=== PATIENT | male | born 1950 | race Caucasian/White ===

== ENCOUNTER 2016-08-02 21:42 | Inpatient (IN) | payer MEDICARE, MEDICAID ==
[~2016-08-02] VITALS: Ht 182.9 cm; Wt 65.9 kg
[2016-08-02] MEDS ORDERED: SODIUM CHLORIDE FLUSH 10ML SYR IVF ONE (22:30)
[2016-08-02] MEDS ORDERED: SODIUM CHLORIDE 0.9% 1,000ML IVBOLUS ONE ×2 (22:30→23:30)
[2016-08-02 23:10] LABS: ASPARTATE AMINO TRANSFERASE 31 U/L (15-37); BLOOD UREA NITROGEN 76 mg/dL (7-18)
[2016-08-02] MEDS ORDERED: VANCOMYCIN PER PHARMACY IV ONE (23:30)
[2016-08-02] MEDS ORDERED: VANCOMYCIN 1,200 MG in SODIUM CHLORIDE 0.9% 250 ML IV ONE (23:30)
[2016-08-02] MEDS ORDERED: PIPERACILLIN/TAZO/PMX 3.375GM 50 ML IVPB ONE (23:30)
[2016-08-02 23:39] LABS: ICTOTEST NEGATIVE
[2016-08-03] MEDS: SODIUM CHLORIDE 0.9% 1,000 ML IV SCH ×2 (00:53→15:23)
[2016-08-03] MEDS ORDERED: ONDANSETRON 2MG/ML, 2ML IVP PRN (01:00)
[2016-08-03] MEDS ORDERED: ACETAMINOPHEN 325 MG TABLET PO PRN (01:00)
[2016-08-03] MEDS ORDERED: ENALAPRILAT 1.25 MG/ML, 2ML IVPush PRN (01:00)
[2016-08-03] MEDS ORDERED: BISACODYL 10 MG SUPP PR PRN (01:00)
[2016-08-03] MEDS ORDERED: DOCUSATE 100 MG CAPSULE PO PRN (01:00)
[2016-08-03] MEDS ORDERED: PIPERACILLIN/TAZO/PMX 3.375GM 50 ML ONE (01:03)
[2016-08-03] MEDS ORDERED: VANCOMYCIN PMX 1GM/200ML 200 ML IV ONE (01:30)
[2016-08-03] MEDS ORDERED: SODIUM CHLORIDE 0.9% 1,000ML IVBOLUS ONE (01:30)
[2016-08-03] MEDS ORDERED: PIPERACILLIN/TAZO/PMX 2.25GM 50 ML IV SCH (01:30)
[2016-08-03] MEDS ORDERED: VANCOMYCIN PER PHARMACY MC PRN (01:30)
[2016-08-03] MEDS ORDERED: OMNIPAQUE 350 MG/ML, 100ML BOTTLE ONE (02:37)
[2016-08-03 03:51] VITALS: BP 121/75
[2016-08-03 03:53] VITALS: BP 121/73
[2016-08-03] MEDS: PANTOPRAZOLE 40 MG IV IVP SCH ×2 (06:28→06:29)
[2016-08-03] MEDS ORDERED: PHARMACOKINETIC CONSULTATION MC ONE (06:30)
[2016-08-03] MEDS ORDERED: PHARMACOKINETIC MONITORING MC PRN (06:30)
[2016-08-03 07:40] VITALS: BP 103/66
[2016-08-03] MEDS ORDERED: ENOXAPARIN 40 MG/0.4 ML SQ SCH (08:30)
[2016-08-03] MEDS: OXYcodone IR 5MG TABLET PO PRN ×3 (09:51→19:59)
[2016-08-03] MEDS: FLUTICASONE/VILANTEROL 100-25MCG/INH INH SCH (09:52)
[2016-08-03] MEDS: AMPICILLIN/SULBACTAM 3 GM in SODIUM CHLORIDE 0.9% 100 ML IV SCH ×3 (09:53→21:51)
[2016-08-03 10:02] LABS: BLOOD UREA NITROGEN 74 mg/dL (7-18)
[2016-08-03] MEDS: MORPHINE SULFATE 4 MG/ML, 1ML IVPush PRN (10:15)
[2016-08-03 10:26] LABS: DIFF TOTAL CELLS COUNTED 100 CELL DIFF
[2016-08-03 10:29] LABS: ANISOCYTOSIS 1+; VERIFY COUNTS? YES
[2016-08-03] MEDS ORDERED: HEPARIN 5,000 UNITS/ML, 1ML SQ SCH (11:30)
[2016-08-03 14:01] VITALS: BP 161/95
[2016-08-03 18:43] VITALS: BP 150/100
[2016-08-03 21:35] LABS: POTASSIUM,URINE RANDOM 32 mmol/L
[2016-08-03 23:59] VITALS: BP 126/69
[2016-08-04 02:33] VITALS: BP 115/76
[2016-08-04] MEDS: AMPICILLIN/SULBACTAM 3 GM in SODIUM CHLORIDE 0.9% 100 ML IV SCH ×4 (03:36→23:27)
[2016-08-04 07:00] LABS: ASPARTATE AMINO TRANSFERASE 32 U/L (15-37); BLOOD UREA NITROGEN 66 mg/dL (7-18)
[2016-08-04] MEDS: PANTOPRAZOLE 40 MG IV IVP SCH (07:30)
[2016-08-04 07:37] LABS: DIFF TOTAL CELLS COUNTED 100 CELL DIFF
[2016-08-04 07:41] LABS: VERIFY COUNTS? YES
[2016-08-04 07:42] LABS: ANISOCYTOSIS 1+
[2016-08-04 09:52] VITALS: BP 137/78
[2016-08-04] MEDS: NS + 20MEQ KCL 1,000 ML IV SCH ×3 (10:03→23:27)
[2016-08-04] MEDS: HEPARIN 5,000 UNITS/ML, 1ML SQ SCH ×3 (10:03→23:45)
[2016-08-04] MEDS: FLUTICASONE/VILANTEROL 100-25MCG/INH INH SCH (10:03)
[2016-08-04] MEDS: VANCOMYCIN 1,300 MG in SODIUM CHLORIDE 0.9% 250 ML IV SCH (12:47)
[2016-08-04 14:00] VITALS: BP 133/66
[2016-08-04 19:35] VITALS: BP 139/72
[2016-08-04] MEDS: OXYcodone IR 5MG TABLET PO PRN (19:58)
[2016-08-05 01:38] VITALS: BP 127/64
[2016-08-05] MEDS: AMPICILLIN/SULBACTAM 3 GM in SODIUM CHLORIDE 0.9% 100 ML IV SCH ×3 (05:35→20:46)
[2016-08-05 06:07] LABS: BLOOD UREA NITROGEN 50 mg/dL (7-18)
[2016-08-05 06:16] LABS: DIFF TOTAL CELLS COUNTED 100 CELL DIFF
[2016-08-05 06:18] LABS: VERIFY COUNTS? YES
[2016-08-05 06:19] LABS: ANISOCYTOSIS 1+
[2016-08-05 08:19] VITALS: BP 143/73
[2016-08-05] MEDS: HEPARIN 5,000 UNITS/ML, 1ML SQ SCH ×2 (09:30→17:10)
[2016-08-05] MEDS: FLUTICASONE/VILANTEROL 100-25MCG/INH INH SCH (09:30)
[2016-08-05] MEDS: OXYcodone IR 5MG TABLET PO PRN ×3 (10:04→21:18)
[2016-08-05] MEDS: NS + 20MEQ KCL 1,000 ML IV SCH ×2 (11:29→21:18)
[2016-08-05] MEDS ORDERED: GADOBUTROL 7.5 MMOL/7.5 ML PFS ONE (13:13)
[2016-08-05 14:20] VITALS: BP 138/76
[2016-08-05 19:57] VITALS: BP 143/82
[2016-08-06] MEDS: VANCOMYCIN 1,300 MG in SODIUM CHLORIDE 0.9% 250 ML IV SCH (00:38)
[2016-08-06] MEDS: HEPARIN 5,000 UNITS/ML, 1ML SQ SCH ×3 (00:38→16:22)
[2016-08-06] MEDS: AMPICILLIN/SULBACTAM 3 GM in SODIUM CHLORIDE 0.9% 100 ML IV SCH ×4 (02:23→19:58)
[2016-08-06 02:31] VITALS: BP 146/74
[2016-08-06] MEDS: OXYcodone IR 5MG TABLET PO PRN ×3 (04:34→21:17)
[2016-08-06 07:11] LABS: BLOOD UREA NITROGEN 33 mg/dL (7-18)
[2016-08-06 07:37] LABS: DIFF TOTAL CELLS COUNTED 100 CELL DIFF
[2016-08-06 07:38] LABS: ANISOCYTOSIS 1+; VERIFY COUNTS? YES
[2016-08-06 07:39] LABS: POLYCHROMASIA 1+
[2016-08-06 07:59] VITALS: BP 134/69
[2016-08-06] MEDS: NS + 20MEQ KCL 1,000 ML IV SCH ×2 (08:46→19:50)
[2016-08-06] MEDS: MORPHINE SULFATE 4 MG/ML, 1ML IVPush PRN ×3 (08:46→16:19)
[2016-08-06] MEDS: FLUTICASONE/VILANTEROL 100-25MCG/INH INH SCH (09:00)
[2016-08-06] MEDS: FLUTICASONE/VILANTEROL 200-25MCG/INH INH SCH (12:21)
[2016-08-06] MEDS ORDERED: SODIUM BICARBONATE 4.2%, 5ML ONE (12:56)
[2016-08-06] MEDS ORDERED: LIDOCAINE 2%, 20ML ONE (12:56)
[2016-08-06 14:48] VITALS: BP 135/70
[2016-08-06 19:56] VITALS: BP 127/64
[2016-08-07] MEDS: HEPARIN 5,000 UNITS/ML, 1ML SQ SCH ×3 (00:51→18:14)
[2016-08-07 01:37] VITALS: BP 134/72
[2016-08-07] MEDS: AMPICILLIN/SULBACTAM 3 GM in SODIUM CHLORIDE 0.9% 100 ML IV SCH ×4 (02:03→22:11)
[2016-08-07] MEDS: OXYcodone IR 5MG TABLET PO PRN ×4 (03:12→22:11)
[2016-08-07] MEDS: NS + 20MEQ KCL 1,000 ML IV SCH ×3 (04:07→23:14)
[2016-08-07] MEDS: VANCOMYCIN 1,300 MG in SODIUM CHLORIDE 0.9% 250 ML IV SCH (04:12)
[2016-08-07 07:00] VITALS: BP 151/81
[2016-08-07 07:01] LABS: BLOOD UREA NITROGEN 20 mg/dL (7-18)
[2016-08-07] MEDS: FLUTICASONE/VILANTEROL 200-25MCG/INH INH SCH (10:36)
[2016-08-07 14:25] VITALS: BP 168/85
[2016-08-07 20:00] LABS: OCCBLD OBC PASS
[2016-08-07 20:30] VITALS: BP 164/89
[2016-08-08] VITALS (8 sets, daily range): BP systolic 152–175; BP diastolic 81–99
[2016-08-08] MEDS: HEPARIN 5,000 UNITS/ML, 1ML SQ SCH ×3 (02:12→17:26)
[2016-08-08] MEDS: ENALAPRILAT 1.25 MG/ML, 2ML IVPush PRN ×2 (02:39→09:56)
[2016-08-08] MEDS: AMPICILLIN/SULBACTAM 3 GM in SODIUM CHLORIDE 0.9% 100 ML IV SCH ×4 (04:06→22:07)
[2016-08-08] MEDS: MORPHINE SULFATE 4 MG/ML, 1ML IVPush PRN ×2 (04:06→18:02)
[2016-08-08] MEDS ORDERED: AMLODIPINE 5 MG TABLET PO SCH (04:30)
[2016-08-08] MEDS: VANCOMYCIN 1,300 MG in SODIUM CHLORIDE 0.9% 250 ML IV SCH (05:16)
[2016-08-08 06:00] LABS: BLOOD UREA NITROGEN 15 mg/dL (7-18)
[2016-08-08] MEDS: FLUTICASONE/VILANTEROL 200-25MCG/INH INH SCH (09:56)
[2016-08-08] MEDS: OXYcodone IR 5MG TABLET PO PRN ×3 (09:56→22:07)
[2016-08-08] MEDS ORDERED: FUROSEMIDE 40 MG/4 ML IV ONE (11:00)
[2016-08-08] MEDS ORDERED: LACTULOSE 20 GM/30 ML UDC PO ONE (11:00)
[2016-08-08] MEDS ORDERED: LABETALOL 5MG/ML, 20ML IVPush PRN (14:00)
[2016-08-08] MEDS: ERGOCALCIFEROL 50,000 UNIT CAPSULE PO SCH (16:06)
[2016-08-08] MEDS: POLYETHYLENE GLYCOL 17 GM PACKET PO PRN (17:26)
[2016-08-08] MEDS: FERROUS SULFATE 325 MG TABLET PO SCH (17:26)
[2016-08-09] MEDS: HEPARIN 5,000 UNITS/ML, 1ML SQ SCH ×3 (02:04→18:33)
[2016-08-09] MEDS: MORPHINE SULFATE 4 MG/ML, 1ML IVPush PRN ×2 (02:04→20:05)
[2016-08-09 02:53] VITALS: BP 153/86
[2016-08-09] MEDS: AMPICILLIN/SULBACTAM 3 GM in SODIUM CHLORIDE 0.9% 100 ML IV SCH ×4 (04:16→23:12)
[2016-08-09 08:04] VITALS: BP 154/90
[2016-08-09] MEDS: FERROUS SULFATE 325 MG TABLET PO SCH ×2 (09:13→16:59)
[2016-08-09] MEDS: FLUTICASONE/VILANTEROL 200-25MCG/INH INH SCH (09:13)
[2016-08-09] MEDS: OXYcodone IR 5MG TABLET PO PRN (09:14)
[2016-08-09] MEDS: POLYETHYLENE GLYCOL 17 GM PACKET PO PRN (09:26)
[2016-08-09 13:22] VITALS: BP 166/85
[2016-08-09] MEDS ORDERED: D5%-0.45% NACL 1,000 ML IV SCH (14:30)
[2016-08-09] MEDS: D5%-0.45% NACL 1,000 ML IV SCH (17:00)
[2016-08-09 19:56] VITALS: BP 159/84
[2016-08-10] MEDS: MORPHINE SULFATE 4 MG/ML, 1ML IVPush PRN ×3 (01:27→23:21)
[2016-08-10] MEDS: HEPARIN 5,000 UNITS/ML, 1ML SQ SCH ×3 (01:30→16:59)
[2016-08-10 02:00] VITALS: BP 166/89
[2016-08-10] MEDS: AMPICILLIN/SULBACTAM 3 GM in SODIUM CHLORIDE 0.9% 100 ML IV SCH ×4 (05:11→23:22)
[2016-08-10 05:35] LABS: BLOOD UREA NITROGEN 9 mg/dL (7-18)
[2016-08-10] MEDS ORDERED: OMNIPAQUE 350 MG/ML, 100ML BOTTLE ONE (06:16)
[2016-08-10 07:44] VITALS: BP 155/85
[2016-08-10] MEDS: FERROUS SULFATE 325 MG TABLET PO SCH ×3 (08:00→17:00)
[2016-08-10] MEDS ORDERED: SODIUM BICARBONATE 4.2%, 5ML ONE (09:47)
[2016-08-10] MEDS ORDERED: LIDOCAINE 1%, 20ML ONE (09:47)
[2016-08-10] MEDS: FLUTICASONE/VILANTEROL 200-25MCG/INH INH SCH (10:48)
[2016-08-10 13:23] VITALS: BP 174/94
[2016-08-10] MEDS: D5%-0.45% NACL 1,000 ML IV SCH (13:57)
[2016-08-10] MEDS ORDERED: D5%-0.45% NACL 1,000 ML IV SCH (14:30)
[2016-08-10 19:54] VITALS: BP 178/92
[2016-08-11 02:00] VITALS: BP 151/82
[2016-08-11] MEDS: HEPARIN 5,000 UNITS/ML, 1ML SQ SCH ×4 (03:35→22:50)
[2016-08-11] MEDS: MORPHINE SULFATE 4 MG/ML, 1ML IVPush PRN ×2 (04:24→08:34)
[2016-08-11] MEDS: AMPICILLIN/SULBACTAM 3 GM in SODIUM CHLORIDE 0.9% 100 ML IV SCH ×4 (05:32→22:50)
[2016-08-11] MEDS: FERROUS SULFATE 325 MG TABLET PO SCH ×2 (08:18→16:09)
[2016-08-11 08:25] VITALS: BP 163/85
[2016-08-11] MEDS: FLUTICASONE/VILANTEROL 200-25MCG/INH INH SCH (08:34)
[2016-08-11] MEDS: D5%-0.45% NACL 1,000 ML IV SCH (10:02)
[2016-08-11 14:19] VITALS: BP 154/86
[2016-08-11] MEDS: METHYLNALTREXONE 12 MG/0.6 ML SQ SCH (14:46)
[2016-08-11] MEDS: OXYcodone IR 5MG TABLET PO PRN ×2 (14:46→22:51)
[2016-08-11] MEDS: METOCLOPRAMIDE 10MG TABLET PO SCH ×2 (16:09→22:51)
[2016-08-11 19:58] VITALS: BP 147/84
[2016-08-12 01:58] VITALS: BP 154/92
[2016-08-12] MEDS: AMPICILLIN/SULBACTAM 3 GM in SODIUM CHLORIDE 0.9% 100 ML IV SCH ×4 (04:59→23:25)
[2016-08-12] MEDS: OXYcodone IR 5MG TABLET PO PRN ×4 (05:00→23:25)
[2016-08-12 07:02] LABS: ASPARTATE AMINO TRANSFERASE 35 U/L (15-37); BLOOD UREA NITROGEN 5 mg/dL (7-18)
[2016-08-12] MEDS: METOCLOPRAMIDE 10MG TABLET PO SCH ×3 (08:07→23:24)
[2016-08-12] MEDS: FLUTICASONE/VILANTEROL 200-25MCG/INH INH SCH (08:07)
[2016-08-12] MEDS: FERROUS SULFATE 325 MG TABLET PO SCH ×2 (08:07→17:41)
[2016-08-12 08:11] VITALS: BP 160/82
[2016-08-12] MEDS: D5%-0.45% NACL 1,000 ML IV SCH (10:19)
[2016-08-12] MEDS: HEPARIN 5,000 UNITS/ML, 1ML SQ SCH ×2 (10:19→17:41)
[2016-08-12 14:53] VITALS: BP 163/83
[2016-08-12] MEDS ORDERED: OMNIPAQUE 350 MG/ML, 100ML BOTTLE ONE (16:15)
[2016-08-12 16:39] VITALS: BP 155/82
[2016-08-12 18:30] VITALS: BP 150/75
[2016-08-12] MEDS: SODIUM CHLORIDE 0.9% 1,000 ML IV SCH (23:25)
[2016-08-13 02:00] VITALS: BP 151/73
[2016-08-13] MEDS: HEPARIN 5,000 UNITS/ML, 1ML SQ SCH ×3 (03:06→18:00)
[2016-08-13] MEDS: AMPICILLIN/SULBACTAM 3 GM in SODIUM CHLORIDE 0.9% 100 ML IV SCH ×3 (04:45→22:23)
[2016-08-13 06:12] LABS: ASPARTATE AMINO TRANSFERASE 30 U/L (15-37); BLOOD UREA NITROGEN 6 mg/dL (7-18)
[2016-08-13 07:57] VITALS: BP 155/79
[2016-08-13] MEDS: FERROUS SULFATE 325 MG TABLET PO SCH ×2 (08:00→17:00)
[2016-08-13] MEDS: MORPHINE SULFATE 4 MG/ML, 1ML IVPush PRN ×3 (08:35→21:06)
[2016-08-13] MEDS: FLUTICASONE/VILANTEROL 200-25MCG/INH INH SCH (09:00)
[2016-08-13] MEDS: MULTIVITAMINS/MINERALS TABLET PO SCH (09:00)
[2016-08-13] MEDS: METOCLOPRAMIDE 10MG TABLET PO SCH ×3 (09:00→21:00)
[2016-08-13] MEDS: CALCIUM CARBONATE 500 MG TABLET PO SCH ×2 (09:00→21:00)
[2016-08-13] MEDS ORDERED: DEXAMETHASONE 4 MG/ML, 1ML ONE (10:36)
[2016-08-13] MEDS ORDERED: METOPROLOL 1 MG/ML, 5ML ONE (10:36)
[2016-08-13] MEDS ORDERED: ONDANSETRON 2MG/ML, 2ML ONE (10:36)
[2016-08-13] MEDS ORDERED: PROPOFOL 10 MG/ML, 20ML ONE (10:36)
[2016-08-13] MEDS ORDERED: GABAPENTIN 100 MG CAPSULE PO PRN (12:30)
[2016-08-13] MEDS: METHYLNALTREXONE 12 MG/0.6 ML SQ SCH (12:30)
[2016-08-13] MEDS: SODIUM CHLORIDE 0.9% 1,000 ML IV SCH ×2 (13:20→13:34)
[2016-08-13 14:10] VITALS: BP 162/97
[2016-08-13] MEDS ORDERED: BACITRACIN OINT 500U/GM, 15 GM ONE (14:42)
[2016-08-13] MEDS ORDERED: NEOMY/POLYMYXIN B GU IRR. 1 ML IRRIG ONE (14:42)
[2016-08-13] MEDS ORDERED: BACITRACIN 50,000 UNIT ONE (14:42)
[2016-08-13] MEDS ORDERED: FENTANYL PF 100 MCG/2ML ONE ×2 (17:04→19:10)
[2016-08-13] MEDS ORDERED: HYDROmorphone 1 MG/ML, 1ML IV PRN (18:30)
[2016-08-13] MEDS ORDERED: ACETAMINOPHEN 325 MG TABLET PO PRN (18:30)
[2016-08-13] MEDS ORDERED: MEPERIDINE/PF 25MG/0.5ML IVPush PRN (18:30)
[2016-08-13] MEDS ORDERED: FENTANYL PF 100 MCG/2ML IV PRN (18:30)
[2016-08-13] MEDS ORDERED: METOPROLOL 1 MG/ML, 5ML IV PRN (18:30)
[2016-08-13] MEDS ORDERED: PROMETHAZINE 25 MG/ML, 1ML IV PRN (18:30)
[2016-08-13] MEDS ORDERED: hydrALAzine 20 MG/ML, 1ML IV PRN (18:30)
[2016-08-13] MEDS ORDERED: OXYcodone 5 MG/5 ML ORAL.SOL UDC PO PRN (18:30)
[2016-08-13] MEDS ORDERED: ALBUTEROL/IPRATROPIUM 2.5MG/0.5MG, 3 ML NPPB PRN (18:30)
[2016-08-13] MEDS ORDERED: OXYcodone 5 MG/5 ML ORAL.SOL UDC ONE (19:10)
[2016-08-13 19:46] VITALS: BP 124/92
[2016-08-13] MEDS: OXYcodone IR 5MG TABLET PO PRN (22:23)
[2016-08-14 01:00] VITALS: BP 129/77
[2016-08-14] MEDS: HEPARIN 5,000 UNITS/ML, 1ML SQ SCH ×3 (03:00→18:53)
[2016-08-14] MEDS: OXYcodone IR 5MG TABLET PO PRN ×3 (03:00→15:31)
[2016-08-14] MEDS: AMPICILLIN/SULBACTAM 3 GM in SODIUM CHLORIDE 0.9% 100 ML IV SCH ×4 (04:09→22:19)
[2016-08-14 05:18] LABS: BLOOD UREA NITROGEN 9 mg/dL (7-18)
[2016-08-14] MEDS: MORPHINE SULFATE 4 MG/ML, 1ML IVPush PRN ×4 (06:11→13:46)
[2016-08-14] MEDS ORDERED: MAGNESIUM SULFATE PMX 2GM/50ML 50 ML IV ONE (07:00)
[2016-08-14] MEDS: FLUTICASONE/VILANTEROL 200-25MCG/INH INH SCH (08:20)
[2016-08-14] MEDS: CALCIUM CARBONATE 500 MG TABLET PO SCH ×2 (08:21→21:58)
[2016-08-14] MEDS: FERROUS SULFATE 325 MG TABLET PO SCH ×2 (08:21→16:45)
[2016-08-14] MEDS: MULTIVITAMINS/MINERALS TABLET PO SCH (08:23)
[2016-08-14 08:37] VITALS: BP 138/74
[2016-08-14 14:31] VITALS: BP 144/75
[2016-08-14] MEDS: SODIUM CHLORIDE 0.9% 1,000 ML IV SCH (16:44)
[2016-08-14 19:29] VITALS: BP 148/83
[2016-08-15 01:22] VITALS: BP 155/84
[2016-08-15] MEDS: HEPARIN 5,000 UNITS/ML, 1ML SQ SCH ×3 (02:03→18:49)
[2016-08-15] MEDS: OXYcodone IR 5MG TABLET PO PRN ×4 (02:31→22:28)
[2016-08-15] MEDS: AMPICILLIN/SULBACTAM 3 GM in SODIUM CHLORIDE 0.9% 100 ML IV SCH ×4 (04:18→22:28)
[2016-08-15] MEDS: SODIUM CHLORIDE 0.9% 1,000 ML IV SCH (05:20)
[2016-08-15 07:12] VITALS: BP 160/82
[2016-08-15] MEDS: FLUTICASONE/VILANTEROL 200-25MCG/INH INH SCH (10:38)
[2016-08-15] MEDS: MULTIVITAMINS/MINERALS TABLET PO SCH (10:38)
[2016-08-15] MEDS: CALCIUM CARBONATE 500 MG TABLET PO SCH ×2 (10:38→22:28)
[2016-08-15] MEDS: FERROUS SULFATE 325 MG TABLET PO SCH ×2 (10:38→16:23)
[2016-08-15 13:56] VITALS: BP 172/86
[2016-08-15 14:07] LABS: OCCBLD OBC PASS
[2016-08-15] MEDS: ERGOCALCIFEROL 50,000 UNIT CAPSULE PO SCH (16:23)
[2016-08-15 20:17] VITALS: BP 141/90
[2016-08-16 02:51] VITALS: BP 164/81
[2016-08-16] MEDS: HEPARIN 5,000 UNITS/ML, 1ML SQ SCH ×3 (02:59→18:48)
[2016-08-16] MEDS: AMPICILLIN/SULBACTAM 3 GM in SODIUM CHLORIDE 0.9% 100 ML IV SCH ×4 (04:14→22:07)
[2016-08-16] MEDS: OXYcodone IR 5MG TABLET PO PRN ×3 (04:19→18:47)
[2016-08-16 07:44] VITALS: BP 167/78
[2016-08-16] MEDS: MULTIVITAMINS/MINERALS TABLET PO SCH (08:31)
[2016-08-16] MEDS: CALCIUM CARBONATE 500 MG TABLET PO SCH ×2 (08:33→20:24)
[2016-08-16] MEDS: FLUTICASONE/VILANTEROL 200-25MCG/INH INH SCH (08:34)
[2016-08-16] MEDS: FERROUS SULFATE 325 MG TABLET PO SCH ×2 (08:34→16:07)
[2016-08-16] MEDS: MORPHINE SULFATE 4 MG/ML, 1ML IVPush PRN (11:29)
[2016-08-16 13:58] VITALS: BP 149/83
[2016-08-16 18:40] VITALS: BP 163/82
[2016-08-17] MEDS: OXYcodone IR 5MG TABLET PO PRN ×2 (02:06→07:57)
[2016-08-17 02:29] VITALS: BP 167/84
[2016-08-17] MEDS: AMPICILLIN/SULBACTAM 3 GM in SODIUM CHLORIDE 0.9% 100 ML IV SCH ×4 (03:51→21:54)
[2016-08-17] MEDS: HEPARIN 5,000 UNITS/ML, 1ML SQ SCH ×3 (03:52→19:37)
[2016-08-17 06:33] LABS: BLOOD UREA NITROGEN 12 mg/dL (7-18)
[2016-08-17 07:31] VITALS: BP 178/85
[2016-08-17] MEDS: CALCIUM CARBONATE 500 MG TABLET PO SCH ×2 (07:56→19:37)
[2016-08-17] MEDS: MULTIVITAMINS/MINERALS TABLET PO SCH (07:56)
[2016-08-17] MEDS: FERROUS SULFATE 325 MG TABLET PO SCH ×2 (07:56→16:25)
[2016-08-17] MEDS: FLUTICASONE/VILANTEROL 200-25MCG/INH INH SCH (07:57)
[2016-08-17 13:27] VITALS: BP 153/78
[2016-08-17] MEDS ORDERED: MAGNESIUM SULFATE PMX 2GM/50ML 50 ML IV ONE (16:00)
[2016-08-17 19:46] VITALS: BP 158/84
[2016-08-18 02:48] VITALS: BP 178/88
[2016-08-18] MEDS: HEPARIN 5,000 UNITS/ML, 1ML SQ SCH ×3 (03:45→21:38)
[2016-08-18] MEDS: AMPICILLIN/SULBACTAM 3 GM in SODIUM CHLORIDE 0.9% 100 ML IV SCH ×2 (03:45→09:57)
[2016-08-18] MEDS: OXYcodone IR 5MG TABLET PO PRN (04:02)
[2016-08-18 05:55] LABS: ASPARTATE AMINO TRANSFERASE 35 U/L (15-37); BLOOD UREA NITROGEN 12 mg/dL (7-18)
[2016-08-18 07:54] VITALS: BP 169/85
[2016-08-18] MEDS: FLUTICASONE/VILANTEROL 200-25MCG/INH INH SCH (09:57)
[2016-08-18] MEDS: MULTIVITAMINS/MINERALS TABLET PO SCH (09:57)
[2016-08-18] MEDS: FERROUS SULFATE 325 MG TABLET PO SCH ×2 (09:57→17:00)
[2016-08-18] MEDS: CALCIUM CARBONATE 500 MG TABLET PO SCH ×2 (09:57→21:36)
[2016-08-18 14:30] VITALS: BP 159/84
[2016-08-18 19:34] VITALS: BP 139/88
[2016-08-19 01:10] VITALS: BP 171/92
[2016-08-19] MEDS: OXYcodone IR 5MG TABLET PO PRN ×2 (01:25→09:58)
[2016-08-19] MEDS: ENALAPRILAT 1.25 MG/ML, 2ML IVPush PRN (01:47)
[2016-08-19 01:50] VITALS: BP 176/89
[2016-08-19] MEDS: HEPARIN 5,000 UNITS/ML, 1ML SQ SCH ×3 (05:36→19:41)
[2016-08-19 07:56] VITALS: BP 167/84
[2016-08-19] MEDS: FLUTICASONE/VILANTEROL 200-25MCG/INH INH SCH (09:54)
[2016-08-19] MEDS: MULTIVITAMINS/MINERALS TABLET PO SCH (09:54)
[2016-08-19] MEDS: FERROUS SULFATE 325 MG TABLET PO SCH ×2 (09:54→17:00)
[2016-08-19] MEDS: CALCIUM CARBONATE 500 MG TABLET PO SCH ×2 (09:58→19:41)
[2016-08-19 13:03] VITALS: BP 150/77
[2016-08-19] MEDS: MORPHINE SULFATE 4 MG/ML, 1ML IVPush PRN (13:27)
[2016-08-19 18:35] VITALS: BP 146/83
[2016-08-20 03:43] VITALS: BP 166/90
[2016-08-20] MEDS: OXYcodone IR 5MG TABLET PO PRN ×3 (03:51→18:05)
[2016-08-20] MEDS: HEPARIN 5,000 UNITS/ML, 1ML SQ SCH ×3 (03:52→23:03)
[2016-08-20 08:18] VITALS: BP 156/83
[2016-08-20] MEDS: FERROUS SULFATE 325 MG TABLET PO SCH ×2 (08:48→18:05)
[2016-08-20] MEDS: FLUTICASONE/VILANTEROL 200-25MCG/INH INH SCH (08:48)
[2016-08-20] MEDS: MULTIVITAMINS/MINERALS TABLET PO SCH (08:48)
[2016-08-20] MEDS: CALCIUM CARBONATE 500 MG TABLET PO SCH ×2 (08:48→21:43)
[2016-08-20 15:54] VITALS: BP 121/77
[2016-08-20 20:40] VITALS: BP 123/80
[2016-08-21 00:25] VITALS: BP 146/84
[2016-08-21] MEDS: OXYcodone IR 5MG TABLET PO PRN ×2 (03:45→20:09)
[2016-08-21] MEDS: HEPARIN 5,000 UNITS/ML, 1ML SQ SCH ×3 (06:30→23:06)
[2016-08-21 08:35] VITALS: BP 160/84
[2016-08-21] MEDS: CALCIUM CARBONATE 500 MG TABLET PO SCH ×2 (09:19→20:09)
[2016-08-21] MEDS: FLUTICASONE/VILANTEROL 200-25MCG/INH INH SCH (09:19)
[2016-08-21] MEDS: FERROUS SULFATE 325 MG TABLET PO SCH ×2 (09:19→16:18)
[2016-08-21] MEDS: MULTIVITAMINS/MINERALS TABLET PO SCH (09:19)
[2016-08-21] MEDS: MORPHINE SULFATE 4 MG/ML, 1ML IVPush PRN (13:35)
[2016-08-21 15:19] VITALS: BP 150/83
[2016-08-21 20:00] VITALS: BP 145/82
[2016-08-22 02:37] VITALS: BP 158/86
[2016-08-22] MEDS: HEPARIN 5,000 UNITS/ML, 1ML SQ SCH ×3 (06:40→23:11)
[2016-08-22 07:21] VITALS: BP 163/88
[2016-08-22] MEDS: FERROUS SULFATE 325 MG TABLET PO SCH ×2 (07:38→20:21)
[2016-08-22] MEDS: FLUTICASONE/VILANTEROL 200-25MCG/INH INH SCH (07:38)
[2016-08-22] MEDS: MULTIVITAMINS/MINERALS TABLET PO SCH (07:38)
[2016-08-22] MEDS: CALCIUM CARBONATE 500 MG TABLET PO SCH ×2 (07:38→20:21)
[2016-08-22] MEDS: ENALAPRILAT 1.25 MG/ML, 2ML IVPush PRN (07:40)
[2016-08-22] MEDS: OXYcodone IR 5MG TABLET PO PRN ×3 (07:44→19:21)
[2016-08-22 08:38] VITALS: BP 156/89
[2016-08-22] MEDS: ERGOCALCIFEROL 50,000 UNIT CAPSULE PO SCH (15:15)
[2016-08-22 15:59] VITALS: BP 123/69
[2016-08-22 20:30] VITALS: BP 144/82
[2016-08-23 01:55] VITALS: BP 154/89
[2016-08-23] MEDS: HEPARIN 5,000 UNITS/ML, 1ML SQ SCH ×3 (06:33→23:57)
[2016-08-23 07:23] VITALS: BP 154/84
[2016-08-23] MEDS: CALCIUM CARBONATE 500 MG TABLET PO SCH ×2 (09:47→21:35)
[2016-08-23] MEDS: FERROUS SULFATE 325 MG TABLET PO SCH ×2 (09:47→17:33)
[2016-08-23] MEDS: MORPHINE SULFATE 4 MG/ML, 1ML IVPush PRN (09:47)
[2016-08-23] MEDS: MULTIVITAMINS/MINERALS TABLET PO SCH (09:47)
[2016-08-23] MEDS: FLUTICASONE/VILANTEROL 200-25MCG/INH INH SCH (12:09)
[2016-08-23 14:30] VITALS: BP 158/90
[2016-08-23] MEDS: POLYETHYLENE GLYCOL 17 GM PACKET PO PRN (17:33)
[2016-08-23 18:37] VITALS: BP 126/82
[2016-08-23] MEDS: OXYcodone IR 5MG TABLET PO PRN (21:49)
[2016-08-24 01:30] VITALS: BP 134/83
[2016-08-24 07:17] VITALS: BP 146/91
[2016-08-24] MEDS: MULTIVITAMINS/MINERALS TABLET PO SCH (08:20)
[2016-08-24] MEDS: FERROUS SULFATE 325 MG TABLET PO SCH ×2 (08:20→17:30)
[2016-08-24] MEDS: OXYcodone IR 5MG TABLET PO PRN ×3 (08:20→20:26)
[2016-08-24] MEDS: HEPARIN 5,000 UNITS/ML, 1ML SQ SCH ×3 (08:21→23:50)
[2016-08-24] MEDS: FLUTICASONE/VILANTEROL 200-25MCG/INH INH SCH (08:21)
[2016-08-24] MEDS: CALCIUM CARBONATE 500 MG TABLET PO SCH ×2 (08:25→20:26)
[2016-08-24 15:15] VITALS: BP 126/81
[2016-08-24 19:02] VITALS: BP 147/83
[2016-08-25] MEDS: OXYcodone IR 5MG TABLET PO PRN ×2 (00:37→11:28)
[2016-08-25 00:56] VITALS: BP 134/83
[2016-08-25 07:47] VITALS: BP 131/79
[2016-08-25] MEDS: FLUTICASONE/VILANTEROL 200-25MCG/INH INH SCH (11:27)
[2016-08-25] MEDS: HEPARIN 5,000 UNITS/ML, 1ML SQ SCH ×2 (11:28→20:31)
[2016-08-25] MEDS: CALCIUM CARBONATE 500 MG TABLET PO SCH ×2 (11:28→20:31)
[2016-08-25] MEDS: MULTIVITAMINS/MINERALS TABLET PO SCH (11:28)
[2016-08-25] MEDS: FERROUS SULFATE 325 MG TABLET PO SCH ×2 (11:28→17:41)
[2016-08-25 14:05] VITALS: BP 110/75
[2016-08-25 19:34] VITALS: BP 131/79
[2016-08-26 04:21] VITALS: BP 146/89
[2016-08-26] MEDS: HEPARIN 5,000 UNITS/ML, 1ML SQ SCH ×3 (04:26→20:28)
[2016-08-26] MEDS: OXYcodone IR 5MG TABLET PO PRN ×2 (04:26→20:27)
[2016-08-26 08:13] VITALS: BP 140/89
[2016-08-26] MEDS: MORPHINE SULFATE 4 MG/ML, 1ML IVPush PRN (09:11)
[2016-08-26] MEDS: CALCIUM CARBONATE 500 MG TABLET PO SCH ×2 (09:17→20:27)
[2016-08-26] MEDS: FERROUS SULFATE 325 MG TABLET PO SCH ×2 (09:17→16:31)
[2016-08-26] MEDS: FLUTICASONE/VILANTEROL 200-25MCG/INH INH SCH (09:17)
[2016-08-26] MEDS: MULTIVITAMINS/MINERALS TABLET PO SCH (09:17)
[2016-08-26 14:17] VITALS: BP 118/75
[2016-08-26 19:13] VITALS: BP 115/71
[2016-08-27 01:39] VITALS: BP 132/82
[2016-08-27] MEDS: HEPARIN 5,000 UNITS/ML, 1ML SQ SCH ×3 (04:00→21:02)
[2016-08-27 07:49] VITALS: BP 130/81
[2016-08-27] MEDS: CALCIUM CARBONATE 500 MG TABLET PO SCH ×2 (09:07→21:00)
[2016-08-27] MEDS: MULTIVITAMINS/MINERALS TABLET PO SCH (09:07)
[2016-08-27] MEDS: FLUTICASONE/VILANTEROL 200-25MCG/INH INH SCH (09:07)
[2016-08-27] MEDS: FERROUS SULFATE 325 MG TABLET PO SCH ×2 (09:07→16:46)
[2016-08-27 13:51] VITALS: BP 123/86
[2016-08-27 19:12] VITALS: BP 131/86
[2016-08-28 03:02] VITALS: BP 148/94
[2016-08-28] MEDS: HEPARIN 5,000 UNITS/ML, 1ML SQ SCH ×3 (05:02→20:56)
[2016-08-28 08:00] VITALS: BP 121/75
[2016-08-28] MEDS: FERROUS SULFATE 325 MG TABLET PO SCH ×2 (08:25→17:50)
[2016-08-28] MEDS: CALCIUM CARBONATE 500 MG TABLET PO SCH ×2 (08:26→20:55)
[2016-08-28] MEDS: MULTIVITAMINS/MINERALS TABLET PO SCH (08:27)
[2016-08-28] MEDS: FLUTICASONE/VILANTEROL 200-25MCG/INH INH SCH (08:32)
[2016-08-28] MEDS: MORPHINE SULFATE 4 MG/ML, 1ML IVPush PRN (11:51)
[2016-08-28 14:00] VITALS: BP 131/82
[2016-08-28 19:32] VITALS: BP 121/76
[2016-08-29 02:15] VITALS: BP 143/87
[2016-08-29] MEDS: HEPARIN 5,000 UNITS/ML, 1ML SQ SCH ×3 (04:30→20:16)
[2016-08-29 07:47] VITALS: BP 133/84
[2016-08-29] MEDS: FERROUS SULFATE 325 MG TABLET PO SCH ×2 (08:44→16:15)
[2016-08-29] MEDS: MULTIVITAMINS/MINERALS TABLET PO SCH (08:44)
[2016-08-29] MEDS: FLUTICASONE/VILANTEROL 200-25MCG/INH INH SCH (08:44)
[2016-08-29] MEDS: CALCIUM CARBONATE 500 MG TABLET PO SCH ×2 (08:44→20:16)
[2016-08-29 13:22] VITALS: BP 126/82
[2016-08-29] MEDS: OXYcodone IR 5MG TABLET PO PRN (16:15)
[2016-08-29] MEDS: ERGOCALCIFEROL 50,000 UNIT CAPSULE PO SCH (16:16)
[2016-08-29 19:31] VITALS: BP 126/81
[2016-08-30 01:37] VITALS: BP 132/84
[2016-08-30] MEDS: HEPARIN 5,000 UNITS/ML, 1ML SQ SCH ×2 (04:00→11:57)
[2016-08-30] MEDS: MULTIVITAMINS/MINERALS TABLET PO SCH (07:42)
[2016-08-30] MEDS: CALCIUM CARBONATE 500 MG TABLET PO SCH (07:42)
[2016-08-30] MEDS: FERROUS SULFATE 325 MG TABLET PO SCH ×2 (07:43→16:50)
[2016-08-30] MEDS: FLUTICASONE/VILANTEROL 200-25MCG/INH INH SCH (07:44)
[2016-08-30] MEDS: OXYcodone IR 5MG TABLET PO PRN ×2 (07:54→11:57)
[2016-08-30 08:12] VITALS: BP 126/84
[2016-08-30] MEDS ORDERED: ERGO500017 PO (14:14)
[2016-08-30] MEDS ORDERED: OXYC5TAB3 PO (14:14)
[2016-08-30] MEDS ORDERED: POLY17PO5 PO (14:14)
[2016-08-30] MEDS ORDERED: FLUT1BLS INH (14:14)
[2016-08-30] MEDS ORDERED: FERR325T20 PO (14:14)
[2016-08-30] MEDS ORDERED: MULT-484 PO (14:14)
[2016-08-30] MEDS ORDERED: CALC-666 PO (14:14)
[2016-08-30] MEDS ORDERED: GABA100C8 PO (14:14)
[2016-08-30 14:43] VITALS: BP 116/77
== END 2016-08-30 18:35 | DRG 853 ==
LOC: ED 23:59 → EDIP 08-03 00:53 → 3NE 08-03 04:37
PROVIDERS: ADMIT Internal Medicine; ATTEND Internal Medicine
PROC: 0T9B70Z Drainage of Bladder with Drainage Device, Via Natural or Artificial Opening (ICD-10-PCS; 2016-08-02)
PROC: 0J9M3ZX Drainage of Left Upper Leg Subcutaneous Tissue and Fascia, Percutaneous Approach, Diagnostic (ICD-10-PCS; 2016-08-10)
PROC: 0J9M0ZZ Drainage of Left Upper Leg Subcutaneous Tissue and Fascia, Open Approach (ICD-10-PCS; 2016-08-13)
PROC: 0J9P0ZZ Drainage of Left Lower Leg Subcutaneous Tissue and Fascia, Open Approach (ICD-10-PCS; principal; 2016-08-13 17:00)
DX: A41.50 Gram-negative sepsis, unspecified (principal); N17.0 Acute kidney failure with tubular necrosis; E43 Unspecified severe protein-calorie malnutrition; N39.0 Urinary tract infection, site not specified; L03.116 Cellulitis of left lower limb; L02.416 Cutaneous abscess of left lower limb; Z68.1 Body mass index [BMI] 19.9 or less, adult; R65.20 Severe sepsis without septic shock; J44.9 Chronic obstructive pulmonary disease, unspecified; D64.9 Anemia, unspecified; R62.7 Adult failure to thrive; E87.8 Other disorders of electrolyte and fluid balance, not elsewhere classified; M54.30 Sciatica, unspecified side; I11.9 Hypertensive heart disease without heart failure; H54.8 Legal blindness, as defined in USA; F17.210 Nicotine dependence, cigarettes, uncomplicated; K59.00 Constipation, unspecified; M60.9 Myositis, unspecified; Z75.1 Person awaiting admission to adequate facility elsewhere; Z59.0 Homelessness; Z90.89 Acquired absence of other organs
CPT/HCPCS: 36415; 71010; 74000; 74177; 74270; 76770; 77002; 80048; 80053; 80061; 80202; 81001; 82272; 82306; 82436; 82570; 82607; 82728; 83036; 83540; 83550; 83605; 83735; 84100; 84133; 84145; 84300; 84439; 84443; 84466; 85014; 85018; 85025; 86480; 87015; 87040; 87070; 87075; 87086; 87102; 87116; 87205; 87206; 87324; 93005; 93306; 93970; 96360; A9585; J0295; J1100; J1644; J1650; J1940; J2405; J2543; J2704; J3010; J3370; J3480; J3490; Q9967; C9113; J3475; J7030; J7050

== ENCOUNTER 2016-11-20 18:25 | Inpatient (IN) | payer MEDICARE, MEDICAID ==
[~2016-11-20] VITALS: Ht 182.9 cm; Wt 74.5 kg
[~2016-11-20 18:25] MED LIST: CALC-666 PO; ERGO500017 PO; FERR325T20 PO; FLUT1BLS INH; GABA-826 PO; MULT-484 PO; OXYC5TAB3 PO; POLY17PO5 PO
[2016-11-20] MEDS ORDERED: ACETAMINOPHEN 500 MG TABLET PO ONE (18:30)
[2016-11-20] MEDS ORDERED: SODIUM CHLORIDE FLUSH 10ML SYR IVF ONE (18:30)
[2016-11-20] MEDS ORDERED: SODIUM CHLORIDE 0.9% 1,000ML IVBOLUS ONE ×2 (18:30→20:00)
[2016-11-20 19:28] LABS: ASPARTATE AMINO TRANSFERASE 13 U/L (15-37); BLOOD UREA NITROGEN 58 mg/dL (7-18)
[2016-11-20 19:33] LABS: IS PT STATUS REG ER OR PRE ER? YES
[2016-11-20] MEDS ORDERED: ACETAMINOPHEN 325 MG TABLET ONE (19:51)
[2016-11-20] MEDS ORDERED: CEFTRIAXONE PMX 2GM/50ML 50 ML ONE (19:51)
[2016-11-20] MEDS ORDERED: CEFTRIAXONE PMX 2GM/50ML 50 ML IV ONE (20:00)
[2016-11-20] MEDS ORDERED: VANCOMYCIN PER PHARMACY MC ONE (20:00)
[2016-11-20] MEDS ORDERED: VANCOMYCIN 1,300 MG in SODIUM CHLORIDE 0.9% 250 ML IV ONE (20:00)
[2016-11-20] MEDS ORDERED: PHARMACOKINETIC CONSULTATION MC ONE (20:00)
[2016-11-20] MEDS ORDERED: OXYcodone/APAP 5/325MG TABLET ONE (22:49)
[2016-11-20] MEDS ORDERED: OXYcodone/APAP 5/325MG TABLET PO ONE (23:00)
[2016-11-20 23:51] LABS: POTASSIUM,URINE RANDOM 53 mmol/L
[2016-11-21] MEDS ORDERED: PHARMACY MAY ADJ FOR RENAL FX MC PRN (01:30)
[2016-11-21] MEDS ORDERED: ONDANSETRON 2MG/ML, 2ML IVPush PRN (01:30)
[2016-11-21] MEDS ORDERED: POLYETHYLENE GLYCOL 17 GM PACKET PO PRN (01:30)
[2016-11-21] MEDS ORDERED: PROMETHAZINE 25 MG/ML, 1ML IM PRN (01:30)
[2016-11-21] MEDS ORDERED: ACETAMINOPHEN 325 MG TABLET PO PRN ×2 (01:30→21:30)
[2016-11-21] MEDS ORDERED: VANCOMYCIN PER PHARMACY MC PRN (01:30)
[2016-11-21] MEDS ORDERED: PIPERACILLIN/TAZO/PMX 3.375GM 50 ML IV ONE (01:30)
[2016-11-21] MEDS ORDERED: DOCUSATE 100 MG CAPSULE PO PRN (01:30)
[2016-11-21] MEDS ORDERED: BISACODYL 10 MG SUPP PR PRN (01:30)
[2016-11-21] MEDS: SODIUM CHLORIDE 0.9% 1,000 ML IV SCH ×2 (01:39→09:51)
[2016-11-21] MEDS: HYDROcodone/APAP 5/325 TABLET PO PRN ×2 (01:40→13:50)
[2016-11-21 01:59] VITALS: BP 108/64
[2016-11-21 02:05] VITALS: BP 96/46
[2016-11-21] MEDS: HEPARIN 5,000 UNITS/ML, 1ML SQ SCH ×3 (03:03→17:30)
[2016-11-21] MEDS ORDERED: PHARMACOKINETIC MONITORING MC PRN (04:00)
[2016-11-21] MEDS ORDERED: PHARMACOKINETIC CONSULTATION MC ONE (04:00)
[2016-11-21 04:48] LABS: BLOOD UREA NITROGEN 60 mg/dL (7-18)
[2016-11-21 04:52] LABS: ASPARTATE AMINO TRANSFERASE 16 U/L (15-37)
[2016-11-21 08:00] VITALS: BP 112/67
[2016-11-21] MEDS ORDERED: DAKIN'S SOLUTION 1/4 STRENGTH 1,000 ML IRRIG SOLN EXT SCH (09:00)
[2016-11-21] MEDS: morphine SULFATE 10 MG/ML, 1ML IVPush PRN (09:35)
[2016-11-21] MEDS: SENNA/DOCUSATE TABLET PO SCH (09:43)
[2016-11-21] MEDS: PIPERACILLIN/TAZO 2.25 GM in SODIUM CHLORIDE 0.9% 50 ML IV SCH ×2 (09:44→18:34)
[2016-11-21 14:00] VITALS: BP 121/74
[2016-11-21] MEDS ORDERED: VANCOMYCIN 1,200 MG in SODIUM CHLORIDE 0.9% 250 ML IV ONE (16:00)
[2016-11-21] MEDS ORDERED: PERMETHRIN CRM 5%, 60GM TP ONE (16:30)
[2016-11-21 20:00] VITALS: BP 135/55
[2016-11-21] MEDS ORDERED: PROPOFOL 10 MG/ML, 20ML ONE (20:24)
[2016-11-21] MEDS: FENTANYL PF 100 MCG/2ML IV PRN ×4 (21:05→22:00)
[2016-11-21] MEDS ORDERED: ACETAMINOPHEN 650 MG/20.3 ML UDC ONE (21:13)
[2016-11-21] MEDS ORDERED: OXYcodone 5 MG/5 ML ORAL.SOL UDC ONE (21:14)
[2016-11-21] MEDS ORDERED: FENTANYL PF 100 MCG/2ML ONE ×2 (21:14→21:44)
[2016-11-21] MEDS: HYDROmorphone 1 MG/ML, 1ML IV PRN ×5 (21:15→22:35)
[2016-11-21] MEDS ORDERED: HYDROmorphone 1 MG/ML, 1ML ONE ×2 (21:22→21:44)
[2016-11-21] MEDS ORDERED: OXYcodone 5 MG/5 ML ORAL.SOL UDC PO PRN (21:30)
[2016-11-21] MEDS ORDERED: HYDROmorphone 2 MG/ML, 1ML ONE (22:15)
[2016-11-21 22:57] VITALS: BP 128/67
[2016-11-22] MEDS: SODIUM CHLORIDE 0.9% 1,000 ML IV SCH ×2 (01:01→09:53)
[2016-11-22] MEDS: PIPERACILLIN/TAZO 2.25 GM in SODIUM CHLORIDE 0.9% 50 ML IV SCH ×3 (01:02→17:50)
[2016-11-22] MEDS: HEPARIN 5,000 UNITS/ML, 1ML SQ SCH ×3 (01:02→21:03)
[2016-11-22 02:46] VITALS: BP 110/62
[2016-11-22 06:40] VITALS: BP 96/53
[2016-11-22] MEDS: SENNA/DOCUSATE TABLET PO SCH (09:00)
[2016-11-22] MEDS: HYDROcodone/APAP 5/325 TABLET PO PRN ×3 (09:53→21:02)
[2016-11-22 12:40] VITALS: BP 113/64
[2016-11-22] MEDS: D5%-0.9% NACL 1,000 ML IV SCH ×2 (13:00→21:35)
[2016-11-22] MEDS: morphine SULFATE 10 MG/ML, 1ML IVPush PRN ×3 (14:22→21:57)
[2016-11-22 18:51] VITALS: BP 127/62
[2016-11-23 01:37] VITALS: BP 115/64
[2016-11-23] MEDS: PIPERACILLIN/TAZO 2.25 GM in SODIUM CHLORIDE 0.9% 50 ML IV SCH ×3 (01:50→18:44)
[2016-11-23] MEDS: morphine SULFATE 10 MG/ML, 1ML IVPush PRN ×5 (01:50→21:00)
[2016-11-23] MEDS: HEPARIN 5,000 UNITS/ML, 1ML SQ SCH ×3 (04:48→20:18)
[2016-11-23 06:04] LABS: BLOOD UREA NITROGEN 24 mg/dL (7-18)
[2016-11-23 06:30] VITALS: BP 124/70
[2016-11-23] MEDS: SENNA/DOCUSATE TABLET PO SCH (08:28)
[2016-11-23] MEDS: D5%-0.9% NACL 1,000 ML IV SCH ×2 (08:29→21:00)
[2016-11-23] MEDS ORDERED: VANCOMYCIN 1,300 MG in SODIUM CHLORIDE 0.9% 250 ML IV SCH (11:00)
[2016-11-23 12:54] VITALS: BP 140/75
[2016-11-23 19:53] VITALS: BP 143/58
[2016-11-24 02:14] VITALS: BP 118/63
[2016-11-24] MEDS: PIPERACILLIN/TAZO 2.25 GM in SODIUM CHLORIDE 0.9% 50 ML IV SCH ×2 (02:58→09:30)
[2016-11-24] MEDS: morphine SULFATE 10 MG/ML, 1ML IVPush PRN ×4 (04:59→16:13)
[2016-11-24] MEDS: HEPARIN 5,000 UNITS/ML, 1ML SQ SCH ×3 (04:59→21:17)
[2016-11-24] MEDS ORDERED: MORPHINE SULFATE 4 MG/ML, 1ML ONE (05:15)
[2016-11-24 05:56] LABS: BLOOD UREA NITROGEN 15 mg/dL (7-18)
[2016-11-24] MEDS: D5%-0.9% NACL 1,000 ML IV SCH ×2 (08:00→18:14)
[2016-11-24 08:36] VITALS: BP 157/82
[2016-11-24] MEDS: SENNA/DOCUSATE TABLET PO SCH (09:00)
[2016-11-24] MEDS: AMPICILLIN/SULBACTAM 3 GM in SODIUM CHLORIDE 0.9% 100 ML IV SCH ×2 (11:51→18:14)
[2016-11-24 13:31] VITALS: BP 155/84
[2016-11-24] MEDS: GABAPENTIN 100 MG CAPSULE PO SCH ×2 (18:14→21:17)
[2016-11-24 19:10] VITALS: BP 147/78
[2016-11-24] MEDS ORDERED: BISACODYL 10 MG SUPP PR PRN (19:30)
[2016-11-24] MEDS ORDERED: PROMETHAZINE 25 MG/ML, 1ML IM PRN (19:30)
[2016-11-24] MEDS ORDERED: ONDANSETRON 2MG/ML, 2ML IVPush PRN (19:30)
[2016-11-24] MEDS ORDERED: DOCUSATE 100 MG CAPSULE PO PRN (19:30)
[2016-11-24] MEDS ORDERED: ACETAMINOPHEN 325 MG TABLET PO PRN (19:30)
[2016-11-25] MEDS: AMPICILLIN/SULBACTAM 3 GM in SODIUM CHLORIDE 0.9% 100 ML IV SCH ×4 (00:10→17:25)
[2016-11-25 01:32] VITALS: BP 139/72
[2016-11-25] MEDS: HEPARIN 5,000 UNITS/ML, 1ML SQ SCH ×3 (05:02→21:22)
[2016-11-25] MEDS: morphine SULFATE 10 MG/ML, 1ML IVPush PRN ×5 (05:02→15:43)
[2016-11-25] MEDS: D5%-0.9% NACL 1,000 ML IV SCH ×2 (05:34→15:05)
[2016-11-25 07:14] VITALS: BP 141/84
[2016-11-25] MEDS: SENNA/DOCUSATE TABLET PO SCH (09:25)
[2016-11-25] MEDS: GABAPENTIN 100 MG CAPSULE PO SCH ×3 (09:25→21:22)
[2016-11-25 16:15] VITALS: BP 142/83
[2016-11-25 19:09] VITALS: BP 138/79
[2016-11-26] MEDS: AMPICILLIN/SULBACTAM 3 GM in SODIUM CHLORIDE 0.9% 100 ML IV SCH ×4 (00:14→18:54)
[2016-11-26 01:14] VITALS: BP 126/72
[2016-11-26] MEDS: D5%-0.9% NACL 1,000 ML IV SCH ×2 (04:37→11:56)
[2016-11-26] MEDS: HEPARIN 5,000 UNITS/ML, 1ML SQ SCH ×3 (04:37→21:10)
[2016-11-26] MEDS: morphine SULFATE 10 MG/ML, 1ML IVPush PRN ×5 (06:10→21:10)
[2016-11-26 07:10] LABS: ASPARTATE AMINO TRANSFERASE 37 U/L (15-37); BLOOD UREA NITROGEN 10 mg/dL (7-18)
[2016-11-26 07:11] VITALS: BP 149/91
[2016-11-26] MEDS: GABAPENTIN 100 MG CAPSULE PO SCH ×3 (09:58→21:10)
[2016-11-26] MEDS: SENNA/DOCUSATE TABLET PO SCH (09:58)
[2016-11-26 14:06] VITALS: BP 127/71
[2016-11-26 17:36] VITALS: BP 135/87
[2016-11-26 19:06] VITALS: BP 131/82
[2016-11-27] MEDS: AMPICILLIN/SULBACTAM 3 GM in SODIUM CHLORIDE 0.9% 100 ML IV SCH ×4 (00:27→18:24)
[2016-11-27] MEDS: D5%-0.9% NACL 1,000 ML IV SCH ×2 (00:29→16:14)
[2016-11-27 02:36] VITALS: BP 128/76
[2016-11-27] MEDS: morphine SULFATE 10 MG/ML, 1ML IVPush PRN ×4 (04:30→17:38)
[2016-11-27] MEDS: HEPARIN 5,000 UNITS/ML, 1ML SQ SCH ×3 (06:06→21:00)
[2016-11-27 08:18] VITALS: BP 137/77
[2016-11-27] MEDS: GABAPENTIN 100 MG CAPSULE PO SCH ×3 (09:59→21:08)
[2016-11-27] MEDS: SENNA/DOCUSATE TABLET PO SCH (09:59)
[2016-11-27 13:48] VITALS: BP 126/79
[2016-11-27 18:38] VITALS: BP 136/82
[2016-11-28] MEDS: AMPICILLIN/SULBACTAM 3 GM in SODIUM CHLORIDE 0.9% 100 ML IV SCH ×4 (00:13→17:09)
[2016-11-28 00:47] VITALS: BP 141/82
[2016-11-28] MEDS: HEPARIN 5,000 UNITS/ML, 1ML SQ SCH ×3 (05:00→21:19)
[2016-11-28] MEDS: D5%-0.9% NACL 1,000 ML IV SCH ×2 (05:57→21:19)
[2016-11-28] MEDS: morphine SULFATE 10 MG/ML, 1ML IVPush PRN ×2 (05:57→21:29)
[2016-11-28] MEDS: GABAPENTIN 100 MG CAPSULE PO SCH ×4 (06:00→21:19)
[2016-11-28 06:48] VITALS: BP 145/77
[2016-11-28] MEDS: SENNA/DOCUSATE TABLET PO SCH (08:28)
[2016-11-28] MEDS ORDERED: LIDOCAINE 2%, 20ML ONE (09:14)
[2016-11-28] MEDS ORDERED: NITROGLYCERIN/D5W PMX 0 ML ONE (09:40)
[2016-11-28] MEDS ORDERED: FENTANYL PF 100 MCG/2ML ONE (09:41)
[2016-11-28] MEDS ORDERED: HEPARIN 1,000 UNITS/ML, 10ML ONE (09:41)
[2016-11-28] MEDS ORDERED: FLUMAZENIL 0.1 MG/1 ML, 5ML ONE (09:41)
[2016-11-28] MEDS ORDERED: MIDAZOLAM 1 MG/ML, 5ML ONE (09:41)
[2016-11-28] MEDS ORDERED: NALOXONE 1 MG/ML, 2ML ONE (09:42)
[2016-11-28] MEDS ORDERED: VISIPAQUE 270 MG/ML, 150ML BOTTLE ONE (10:00)
[2016-11-28] MEDS: HYDROcodone/APAP 5/325 TABLET PO PRN ×2 (11:43→17:30)
[2016-11-28 13:42] VITALS: BP 127/77
[2016-11-28 13:49] VITALS: BP 124/75
[2016-11-28 13:51] VITALS: BP 107/64
[2016-11-28] MEDS ORDERED: PNEUMOCOCCAL 23 VACCINE IM-VACC ONE (14:30)
[2016-11-28 18:24] VITALS: BP 132/75
[2016-11-29] MEDS: AMPICILLIN/SULBACTAM 3 GM in SODIUM CHLORIDE 0.9% 100 ML IV SCH ×4 (00:51→17:12)
[2016-11-29] MEDS: HYDROcodone/APAP 5/325 TABLET PO PRN ×5 (00:52→19:47)
[2016-11-29 00:56] VITALS: BP 132/73
[2016-11-29] MEDS: GABAPENTIN 100 MG CAPSULE PO SCH ×4 (05:37→22:44)
[2016-11-29] MEDS: HEPARIN 5,000 UNITS/ML, 1ML SQ SCH ×3 (05:37→22:44)
[2016-11-29] MEDS: morphine SULFATE 10 MG/ML, 1ML IVPush PRN ×3 (05:37→22:45)
[2016-11-29 06:48] VITALS: BP 139/82
[2016-11-29] MEDS: SENNA/DOCUSATE TABLET PO SCH (09:00)
[2016-11-29] MEDS: D5%-0.9% NACL 1,000 ML IV SCH ×2 (10:02→22:44)
[2016-11-29 12:20] VITALS: BP 125/72
[2016-11-29 18:21] VITALS: BP 100/53
[2016-11-30] MEDS: AMPICILLIN/SULBACTAM 3 GM in SODIUM CHLORIDE 0.9% 100 ML IV SCH ×4 (00:26→20:43)
[2016-11-30 02:17] VITALS: BP 107/63
[2016-11-30] MEDS: GABAPENTIN 100 MG CAPSULE PO SCH ×4 (05:04→20:43)
[2016-11-30] MEDS: HEPARIN 5,000 UNITS/ML, 1ML SQ SCH ×3 (05:32→20:43)
[2016-11-30] MEDS: morphine SULFATE 10 MG/ML, 1ML IVPush PRN (05:33)
[2016-11-30 06:52] VITALS: BP 132/76
[2016-11-30] MEDS: HYDROcodone/APAP 5/325 TABLET PO PRN (10:18)
[2016-11-30] MEDS: SENNA/DOCUSATE TABLET PO SCH (10:18)
[2016-11-30] MEDS: D5%-0.9% NACL 1,000 ML IV SCH (10:19)
[2016-11-30 12:57] VITALS: BP 119/71
[2016-11-30] MEDS ORDERED: iron (17:02)
[2016-11-30 18:46] VITALS: BP 120/72
[2016-12-01] MEDS: D5%-0.9% NACL 1,000 ML IV SCH (00:18)
[2016-12-01] MEDS: HYDROcodone/APAP 5/325 TABLET PO PRN ×3 (00:29→19:59)
[2016-12-01 01:01] VITALS: BP 122/76
[2016-12-01] MEDS: AMPICILLIN/SULBACTAM 3 GM in SODIUM CHLORIDE 0.9% 100 ML IV SCH ×4 (02:17→19:58)
[2016-12-01] MEDS: GABAPENTIN 100 MG CAPSULE PO SCH ×4 (05:28→19:58)
[2016-12-01] MEDS: HEPARIN 5,000 UNITS/ML, 1ML SQ SCH ×3 (05:28→19:59)
[2016-12-01 06:38] LABS: ASPARTATE AMINO TRANSFERASE 14 U/L (15-37); BLOOD UREA NITROGEN 12 mg/dL (7-18)
[2016-12-01 06:50] VITALS: BP 138/84
[2016-12-01] MEDS: SENNA/DOCUSATE TABLET PO SCH (07:40)
[2016-12-01 09:44] LABS: TOTAL IRON BINDING CAPACITY 167 mcg/dL (250-450)
[2016-12-01] MEDS: morphine SULFATE 10 MG/ML, 1ML IVPush PRN (10:32)
[2016-12-01] MEDS: ASCORBIC ACID 500 MG TABLET PO SCH ×2 (10:32→19:58)
[2016-12-01] MEDS: FERROUS SULFATE 325 MG TABLET PO SCH ×2 (10:32→19:58)
[2016-12-01 13:50] VITALS: BP 133/74
[2016-12-01 19:13] VITALS: BP 142/79
[2016-12-02] MEDS: AMPICILLIN/SULBACTAM 3 GM in SODIUM CHLORIDE 0.9% 100 ML IV SCH ×4 (01:43→20:24)
[2016-12-02 01:56] VITALS: BP 132/70
[2016-12-02] MEDS: HYDROcodone/APAP 5/325 TABLET PO PRN ×3 (02:55→20:24)
[2016-12-02] MEDS: HEPARIN 5,000 UNITS/ML, 1ML SQ SCH ×3 (05:00→20:24)
[2016-12-02 05:03] LABS: OCCBLD OBC PASS
[2016-12-02] MEDS: GABAPENTIN 100 MG CAPSULE PO SCH ×4 (05:03→20:24)
[2016-12-02 06:56] VITALS: BP 133/84
[2016-12-02 07:30] LABS: BLOOD UREA NITROGEN 14 mg/dL (7-18)
[2016-12-02] MEDS: SENNA/DOCUSATE TABLET PO SCH (07:34)
[2016-12-02] MEDS: FERROUS SULFATE 325 MG TABLET PO SCH ×2 (07:37→20:24)
[2016-12-02] MEDS: ASCORBIC ACID 500 MG TABLET PO SCH ×2 (07:37→20:24)
[2016-12-02] MEDS: morphine SULFATE 10 MG/ML, 1ML IVPush PRN (11:21)
[2016-12-02 12:30] VITALS: BP 141/77
[2016-12-02 18:40] VITALS: BP 150/80
[2016-12-03 00:17] VITALS: BP 150/83
[2016-12-03] MEDS: AMPICILLIN/SULBACTAM 3 GM in SODIUM CHLORIDE 0.9% 100 ML IV SCH ×4 (02:00→19:55)
[2016-12-03] MEDS: HEPARIN 5,000 UNITS/ML, 1ML SQ SCH ×3 (05:09→23:21)
[2016-12-03] MEDS: GABAPENTIN 100 MG CAPSULE PO SCH ×4 (05:09→23:21)
[2016-12-03 07:30] VITALS: BP 153/79
[2016-12-03] MEDS: FERROUS SULFATE 325 MG TABLET PO SCH ×2 (07:34→23:20)
[2016-12-03] MEDS: HYDROcodone/APAP 5/325 TABLET PO PRN ×2 (07:34→23:21)
[2016-12-03] MEDS: ASCORBIC ACID 500 MG TABLET PO SCH ×2 (07:35→23:21)
[2016-12-03] MEDS: SENNA/DOCUSATE TABLET PO SCH (07:35)
[2016-12-03 07:56] LABS: BLOOD UREA NITROGEN 15 mg/dL (7-18)
[2016-12-03 12:50] VITALS: BP 138/80
[2016-12-03] MEDS: morphine SULFATE 10 MG/ML, 1ML IVPush PRN (13:35)
[2016-12-03 20:17] VITALS: BP 117/72
[2016-12-04 00:41] VITALS: BP 133/81
[2016-12-04] MEDS: AMPICILLIN/SULBACTAM 3 GM in SODIUM CHLORIDE 0.9% 100 ML IV SCH ×4 (01:35→21:00)
[2016-12-04] MEDS: GABAPENTIN 100 MG CAPSULE PO SCH ×4 (04:57→20:59)
[2016-12-04 06:58] VITALS: BP 129/81
[2016-12-04] MEDS: SENNA/DOCUSATE TABLET PO SCH (07:33)
[2016-12-04] MEDS: ASCORBIC ACID 500 MG TABLET PO SCH ×2 (07:33→20:59)
[2016-12-04] MEDS: HEPARIN 5,000 UNITS/ML, 1ML SQ SCH ×3 (07:33→23:00)
[2016-12-04] MEDS: FERROUS SULFATE 325 MG TABLET PO SCH ×2 (07:33→20:59)
[2016-12-04] MEDS: HYDROcodone/APAP 5/325 TABLET PO PRN (07:41)
[2016-12-04 14:07] VITALS: BP 123/72
[2016-12-04] MEDS: morphine SULFATE 10 MG/ML, 1ML IVPush PRN (14:27)
[2016-12-04 20:17] VITALS: BP 115/69
[2016-12-05] MEDS: AMPICILLIN/SULBACTAM 3 GM in SODIUM CHLORIDE 0.9% 100 ML IV SCH ×3 (02:35→13:22)
[2016-12-05] MEDS: HYDROcodone/APAP 5/325 TABLET PO PRN (02:36)
[2016-12-05 03:20] VITALS: BP 128/73
[2016-12-05] MEDS: GABAPENTIN 100 MG CAPSULE PO SCH ×2 (05:32→11:21)
[2016-12-05] MEDS: HEPARIN 5,000 UNITS/ML, 1ML SQ SCH (07:45)
[2016-12-05] MEDS: FERROUS SULFATE 325 MG TABLET PO SCH (07:45)
[2016-12-05] MEDS: ASCORBIC ACID 500 MG TABLET PO SCH (07:45)
[2016-12-05] MEDS: SENNA/DOCUSATE TABLET PO SCH (07:45)
[2016-12-05 07:48] VITALS: BP 131/83
[2016-12-05] MEDS: morphine SULFATE 10 MG/ML, 1ML IVPush PRN (11:10)
[2016-12-05] MEDS ORDERED: BISA10SU2 PR (13:16)
[2016-12-05] MEDS ORDERED: DOCU100C8 PO (13:18)
[2016-12-05] MEDS ORDERED: DOCU100T3 PO (13:18)
[2016-12-05] MEDS ORDERED: HYDR-3138 PO (13:21)
[2016-12-05] MEDS ORDERED: AMPI3VIA30 IVPB (13:28)
[2016-12-05] MEDS ORDERED: ASCO250T4 PO (13:31)
[2016-12-05] MEDS ORDERED: FERR325T20 PO (13:33)
[2016-12-05] MEDS ORDERED: GABA300C10 PO (13:35)
[2016-12-05] MEDS ORDERED: [UNRECOGNIZED DRUG - CODE] SQ (13:38)
[2016-12-05] MEDS ORDERED: DOCU-30 PO (13:41)
[2016-12-05] MEDS ORDERED: ACET650S21 PO (13:50)
[2016-12-05] MEDS ORDERED: ACET325T14 PO (13:53)
[2016-12-05] MEDS ORDERED: MORP-52 PO (13:55)
[2016-12-05 14:03] VITALS: BP 134/86
== END 2016-12-05 15:59 | DRG 853 ==
LOC: ED 21:02 → EDIP 23:59 → CCU 11-21 01:17 → 3NE 11-21 22:59
PROVIDERS: ADMIT Internal Medicine; ATTEND Family Medicine
PROC: 0HBNXZZ Excision of Left Foot Skin, External Approach (ICD-10-PCS; principal; 2016-11-21 20:30)
PROC: B41D1ZZ Fluoroscopy of Aorta and Bilateral Lower Extremity Arteries using Low Osmolar Contrast (ICD-10-PCS; 2016-11-28)
PROC: 02HV33Z Insertion of Infusion Device into Superior Vena Cava, Percutaneous Approach (ICD-10-PCS; 2016-12-04)
PROC: B548ZZA Ultrasonography of Superior Vena Cava, Guidance (ICD-10-PCS; 2016-12-04)
PROC: B5181ZA Fluoroscopy of Superior Vena Cava using Low Osmolar Contrast, Guidance (ICD-10-PCS; 2016-12-04)
DX: A41.9 Sepsis, unspecified organism (principal); E43 Unspecified severe protein-calorie malnutrition; N17.0 Acute kidney failure with tubular necrosis; L03.116 Cellulitis of left lower limb; D50.9 Iron deficiency anemia, unspecified; J44.9 Chronic obstructive pulmonary disease, unspecified; D75.89 Other specified diseases of blood and blood-forming organs; E16.2 Hypoglycemia, unspecified; G62.9 Polyneuropathy, unspecified; I10 Essential (primary) hypertension; I73.9 Peripheral vascular disease, unspecified; F10.21 Alcohol dependence, in remission; E87.5 Hyperkalemia; D63.8 Anemia in other chronic diseases classified elsewhere; I77.1 Stricture of artery; I34.0 Nonrheumatic mitral (valve) insufficiency; E86.0 Dehydration; M54.30 Sciatica, unspecified side; R62.7 Adult failure to thrive; F17.200 Nicotine dependence, unspecified, uncomplicated; R65.20 Severe sepsis without septic shock; Z59.0 Homelessness; S91.302A Unspecified open wound, left foot, initial encounter; W18.39XA Other fall on same level, initial encounter; Y93.89 Activity, other specified; Y92.89 Other specified places as the place of occurrence of the external cause; Y99.8 Other external cause status; B87.0 Cutaneous myiasis
CPT/HCPCS: 36200; 36415; 36569; 70450; 71010; 72125; 75625; 75716; 76770; 76937; 77001; 80048; 80053; 80202; 81001; 82272; 82436; 82550; 82570; 82962; 83540; 83550; 83605; 83735; 84133; 84145; 84300; 84484; 85025; 85610; 85651; 85730; 86140; 87040; 87070; 87075; 87077; 87081; 87147; 87176; 87186; 87205; 90732; 93306; 93922; 93926; 96365; 96366; 96367; 99156; 99157; C1894; J0295; J0696; J1170; J1644; J2250; J2543; J2704; J3010; J3370; J3490; J7042; Q9966; C1751; C1769; J2270; J2310; J7030; J7050

== ENCOUNTER 2017-01-10 09:04 | Inpatient (IN) | payer MEDICAID, MEDICARE ==
[~2017-01-10] VITALS: Ht 182.9 cm; Wt 80.8 kg
[~2017-01-10 09:04] MED LIST changes: +ACET325T14 PO; +ACET650S21 PO; +AMPI3VIA30 IVPB; +ASCO250T4 PO; +BISA10SU2 PR; +DOCU-131 PO; +DOCU100C33 PO; +DOCU100T3 PO; +FERR325T18 PO; -FERR325T20 PO; +GABA300C10 PO; +HYDR-3237 PO; +MORP-52 PO; +[UNRECOGNIZED DRUG - CODE] SQ; +iron
[2017-01-10] MEDS ORDERED: SODIUM CHLORIDE 0.9% 1,000 ML IV ONE ×2 (09:23→10:27)
[2017-01-10] MEDS ORDERED: AMPICILLIN/SULBACTAM 3 GM in SODIUM CHLORIDE 0.9% 100 ML IVPB ONE (09:30)
[2017-01-10] MEDS ORDERED: SODIUM CHLORIDE FLUSH 10ML SYR IVF ONE ×2 (09:30)
[2017-01-10] MEDS ORDERED: SODIUM CHLORIDE 0.9% 1,000ML IVBOLUS ONE ×2 (09:30→10:30)
[2017-01-10 10:01] LABS: ASPARTATE AMINO TRANSFERASE 18 U/L (15-37); BLOOD UREA NITROGEN 45 mg/dL (7-18)
[2017-01-10 10:02] LABS: HEMATOCRIT 34.8 % (39.2-51.8); HEMOGLOBIN 11.5 g/dL (13.7-18.0); WHITE BLOOD COUNT 16.2 x10^3/uL (3.4-10)
[2017-01-10] MEDS ORDERED: MORPHINE SULFATE 4 MG/ML, 1ML ONE (10:15)
[2017-01-10] MEDS ORDERED: ONDANSETRON 2MG/ML, 2ML ONE (10:15)
[2017-01-10] MEDS ORDERED: ONDANSETRON 2MG/ML, 2ML IVPush ONE (10:30)
[2017-01-10] MEDS ORDERED: SODIUM CHLORIDE FLUSH 10ML SYR IVF PRN (10:30)
[2017-01-10] MEDS ORDERED: MORPHINE SULFATE 4 MG/ML, 1ML IVPush PRN (10:30)
[2017-01-10] MEDS ORDERED: POLYETHYLENE GLYCOL 17 GM PACKET PO PRN (13:00)
[2017-01-10] MEDS ORDERED: ONDANSETRON 2MG/ML, 2ML IVPush PRN (13:00)
[2017-01-10] MEDS ORDERED: LABETALOL 5MG/ML, 20ML IVPush PRN (13:00)
[2017-01-10] MEDS ORDERED: PHARMACY MAY ADJ FOR RENAL FX MC PRN (13:00)
[2017-01-10] MEDS ORDERED: ACETAMINOPHEN 325 MG TABLET PO PRN (13:00)
[2017-01-10] MEDS ORDERED: ONDANSETRON ODT 4 MG PO PRN (13:00)
[2017-01-10] MEDS ORDERED: BISACODYL 10 MG SUPP PR PRN (13:00)
[2017-01-10] MEDS ORDERED: DOCUSATE 100 MG CAPSULE PO PRN (13:00)
[2017-01-10] MEDS: HEPARIN 5,000 UNITS/ML, 1ML SQ SCH ×2 (13:43→22:38)
[2017-01-10] MEDS: morphine SULFATE 10 MG/ML, 1ML IVPush PRN ×3 (13:43→22:37)
[2017-01-10] MEDS: SODIUM CHLORIDE 0.9% 1,000 ML IV SCH ×2 (13:44→22:38)
[2017-01-10] MEDS: AMPICILLIN/SULBACTAM 3 GM in SODIUM CHLORIDE 0.9% 100 ML IV SCH ×2 (13:44→19:30)
[2017-01-10 14:17] VITALS: BP 110/68
[2017-01-10 18:33] VITALS: BP 99/67
[2017-01-10] MEDS: BACITRACIN/POLYMIXIN B SULFATE OINT 14 GM TP SCH (22:38)
[2017-01-11] MEDS: AMPICILLIN/SULBACTAM 3 GM in SODIUM CHLORIDE 0.9% 100 ML IV SCH ×4 (01:23→19:11)
[2017-01-11 02:01] VITALS: BP 109/70
[2017-01-11] MEDS: morphine SULFATE 10 MG/ML, 1ML IVPush PRN ×6 (04:16→23:47)
[2017-01-11] MEDS: HEPARIN 5,000 UNITS/ML, 1ML SQ SCH ×3 (05:21→20:59)
[2017-01-11 05:46] LABS: HEMOGLOBIN 8.8 g/dL (13.7-18.0); WHITE BLOOD COUNT 6.2 x10^3/uL (3.4-10)
[2017-01-11 05:50] LABS: BLOOD UREA NITROGEN 24 mg/dL (7-18)
[2017-01-11] MEDS: SODIUM CHLORIDE 0.9% 1,000 ML IV SCH ×2 (07:39→16:09)
[2017-01-11] MEDS: BACITRACIN/POLYMIXIN B SULFATE OINT 14 GM TP SCH ×2 (07:46→20:59)
[2017-01-11] MEDS ORDERED: POTASSIUM CHLORIDE 20 MEQ TAB.ER.PRT PO ONE (08:00)
[2017-01-11 08:17] VITALS: BP 104/62
[2017-01-11 13:36] VITALS: BP 113/70
[2017-01-11 19:19] VITALS: BP 121/72
[2017-01-12 00:18] VITALS: BP 136/86
[2017-01-12] MEDS: AMPICILLIN/SULBACTAM 3 GM in SODIUM CHLORIDE 0.9% 100 ML IV SCH ×4 (01:11→23:03)
[2017-01-12] MEDS: morphine SULFATE 10 MG/ML, 1ML IVPush PRN ×6 (04:24→23:04)
[2017-01-12] MEDS: SODIUM CHLORIDE 0.9% 1,000 ML IV SCH (05:20)
[2017-01-12] MEDS: HEPARIN 5,000 UNITS/ML, 1ML SQ SCH ×3 (05:20→23:04)
[2017-01-12 05:52] LABS: HEMATOCRIT 26.6 % (39.2-51.8); HEMOGLOBIN 8.8 g/dL (13.7-18.0); WHITE BLOOD COUNT 6.1 x10^3/uL (3.4-10)
[2017-01-12 06:01] LABS: BLOOD UREA NITROGEN 10 mg/dL (7-18)
[2017-01-12] MEDS: BACITRACIN/POLYMIXIN B SULFATE OINT 14 GM TP SCH ×2 (07:52→23:05)
[2017-01-12 08:14] VITALS: BP 125/63
[2017-01-12] MEDS ORDERED: POTASSIUM CHLORIDE 20 MEQ TAB.ER.PRT PO ONE (09:00)
[2017-01-12] MEDS ORDERED: CALCIUM GLUCONATE 4.6 MEQ in SODIUM CHLORIDE 0.9% 50 ML IV ONE (13:00)
[2017-01-12 15:17] VITALS: BP 110/70
[2017-01-12] MEDS ORDERED: POLYETHYLENE GLYCOL 17 GM PACKET PO PRN (19:30)
[2017-01-12] MEDS ORDERED: ONDANSETRON ODT 4 MG PO PRN (19:30)
[2017-01-12] MEDS ORDERED: PHARMACY MAY ADJ FOR RENAL FX MC PRN (19:30)
[2017-01-12] MEDS ORDERED: BISACODYL 10 MG SUPP PR PRN (19:30)
[2017-01-12] MEDS ORDERED: ACETAMINOPHEN 325 MG TABLET PO PRN (19:30)
[2017-01-12] MEDS ORDERED: ONDANSETRON 2MG/ML, 2ML IVPush PRN (19:30)
[2017-01-12] MEDS ORDERED: DOCUSATE 100 MG CAPSULE PO PRN (19:30)
[2017-01-12] MEDS ORDERED: LABETALOL 5MG/ML, 20ML IVPush PRN (19:30)
[2017-01-12 19:50] VITALS: BP 101/62
[2017-01-13] MEDS: morphine SULFATE 10 MG/ML, 1ML IVPush PRN ×6 (02:43→21:45)
[2017-01-13 03:40] VITALS: BP 112/70
[2017-01-13 06:10] LABS: BLOOD UREA NITROGEN 10 mg/dL (7-18)
[2017-01-13] MEDS: HEPARIN 5,000 UNITS/ML, 1ML SQ SCH ×3 (06:15→20:08)
[2017-01-13] MEDS: AMPICILLIN/SULBACTAM 3 GM in SODIUM CHLORIDE 0.9% 100 ML IV SCH ×4 (06:15→22:21)
[2017-01-13 08:00] VITALS: BP 113/68
[2017-01-13] MEDS: BACITRACIN/POLYMIXIN B SULFATE OINT 14 GM TP SCH ×2 (08:58→20:08)
[2017-01-13 13:54] VITALS: BP 122/74
[2017-01-13 19:41] VITALS: BP 120/78
[2017-01-14] MEDS: morphine SULFATE 10 MG/ML, 1ML IVPush PRN ×4 (02:48→19:53)
[2017-01-14 03:02] VITALS: BP 132/78
[2017-01-14] MEDS: AMPICILLIN/SULBACTAM 3 GM in SODIUM CHLORIDE 0.9% 100 ML IV SCH ×4 (04:33→22:47)
[2017-01-14] MEDS: HEPARIN 5,000 UNITS/ML, 1ML SQ SCH ×3 (04:33→19:53)
[2017-01-14 07:31] VITALS: BP 148/82
[2017-01-14] MEDS: BACITRACIN/POLYMIXIN B SULFATE OINT 14 GM TP SCH ×2 (09:40→19:53)
[2017-01-14 12:33] VITALS: BP 131/78
[2017-01-14] MEDS ORDERED: MORPHINE SULFATE 4 MG/ML, 1ML ONE (14:17)
[2017-01-14] MEDS: GABAPENTIN 300 MG CAPSULE PO SCH ×3 (14:20→19:53)
[2017-01-14 20:01] VITALS: BP 117/60
[2017-01-15] MEDS: HEPARIN 5,000 UNITS/ML, 1ML SQ SCH ×3 (05:00→21:43)
[2017-01-15] MEDS: AMPICILLIN/SULBACTAM 3 GM in SODIUM CHLORIDE 0.9% 100 ML IV SCH ×3 (05:00→17:19)
[2017-01-15] MEDS: BACITRACIN/POLYMIXIN B SULFATE OINT 14 GM TP SCH ×2 (09:00→21:43)
[2017-01-15] MEDS: GABAPENTIN 300 MG CAPSULE PO SCH ×3 (09:00→21:43)
[2017-01-15] MEDS: morphine SULFATE 10 MG/ML, 1ML IVPush PRN (12:08)
[2017-01-15 15:02] VITALS: BP 118/71
[2017-01-15 19:58] VITALS: BP 105/66
[2017-01-16] MEDS: AMPICILLIN/SULBACTAM 3 GM in SODIUM CHLORIDE 0.9% 100 ML IV SCH ×4 (00:06→17:42)
[2017-01-16 01:20] VITALS: BP 136/84
[2017-01-16] MEDS: HEPARIN 5,000 UNITS/ML, 1ML SQ SCH ×3 (06:14→20:58)
[2017-01-16 07:04] VITALS: BP 110/70
[2017-01-16] MEDS: GABAPENTIN 300 MG CAPSULE PO SCH ×3 (09:23→20:58)
[2017-01-16] MEDS: morphine SULFATE 10 MG/ML, 1ML IVPush PRN ×3 (09:23→20:57)
[2017-01-16] MEDS: BACITRACIN/POLYMIXIN B SULFATE OINT 14 GM TP SCH ×2 (09:23→20:57)
[2017-01-16 12:51] VITALS: BP 110/68
[2017-01-16 20:41] VITALS: BP 114/73
[2017-01-17] MEDS: AMPICILLIN/SULBACTAM 3 GM in SODIUM CHLORIDE 0.9% 100 ML IV SCH ×3 (00:44→13:00)
[2017-01-17 03:23] VITALS: BP 125/77
[2017-01-17] MEDS: morphine SULFATE 10 MG/ML, 1ML IVPush PRN ×2 (06:28→13:08)
[2017-01-17] MEDS: HEPARIN 5,000 UNITS/ML, 1ML SQ SCH (06:29)
[2017-01-17 07:50] VITALS: BP 125/75
[2017-01-17] MEDS: BACITRACIN/POLYMIXIN B SULFATE OINT 14 GM TP SCH (08:32)
[2017-01-17] MEDS: GABAPENTIN 300 MG CAPSULE PO SCH (08:32)
[2017-01-17] MEDS ORDERED: DOCU-131 PO (10:24)
[2017-01-17] MEDS ORDERED: GABA300C10 PO (10:24)
[2017-01-17] MEDS ORDERED: TRAM50TA2 PO (10:24)
[2017-01-17] MEDS ORDERED: AMPI1.5V IV (11:21)
== END 2017-01-17 14:15 | DRG 871 ==
LOC: ED 10:16 → EDIP 10:27 → 3NE 11:20
PROVIDERS: ADMIT Internal Medicine; ATTEND Internal Medicine
DX: A41.9 Sepsis, unspecified organism (principal); E43 Unspecified severe protein-calorie malnutrition; N17.0 Acute kidney failure with tubular necrosis; E87.2 Acidosis; L03.116 Cellulitis of left lower limb; J44.1 Chronic obstructive pulmonary disease with (acute) exacerbation; G62.9 Polyneuropathy, unspecified; D63.8 Anemia in other chronic diseases classified elsewhere; E83.51 Hypocalcemia; E87.6 Hypokalemia; F10.21 Alcohol dependence, in remission; I10 Essential (primary) hypertension; L01.01 Non-bullous impetigo; Z59.0 Homelessness; Z66 Do not resuscitate; Z87.891 Personal history of nicotine dependence; Z68.24 Body mass index [BMI] 24.0-24.9, adult
CPT/HCPCS: 36415; 71010; 80048; 80053; 81001; 82040; 82330; 83605; 83735; 84145; 85025; 85610; 85730; 87040; 87086; 87324; 89055; 93005; 93970; 96365; 96375; J0295; J0610; J1644; J2405; J2270; J7030

== ENCOUNTER 2017-02-25 09:26 | Inpatient (IN) | payer MEDICARE ==
[~2017-02-25] VITALS: Ht 182.9 cm; Wt 69.5 kg
[~2017-02-25 09:26] MED LIST changes: +AMPI1.5V IV; +TRAM50TA2 PO
[2017-02-25] MEDS ORDERED: PLEASE ENTER HEIGHT AND WEIGHT MC SCH (10:00)
[2017-02-25] MEDS ORDERED: AMPICILLIN/SULBACTAM 3 GM in SODIUM CHLORIDE 0.9% 100 ML IVPB ONE (10:00)
[2017-02-25] MEDS ORDERED: SODIUM CHLORIDE FLUSH 10ML SYR IVF ONE (10:00)
[2017-02-25] MEDS ORDERED: SODIUM CHLORIDE 0.9% 1,000ML IVBOLUS ONE (10:00)
[2017-02-25 10:07] LABS: HEMOGLOBIN 11.5 g/dL (13.7-18.0); WHITE BLOOD COUNT 10.2 x10^3/uL (3.4-10)
[2017-02-25 10:21] LABS: BLOOD UREA NITROGEN 17 mg/dL (7-18)
[2017-02-25] MEDS ORDERED: MORPHINE SULFATE 4 MG/ML, 1ML ONE (10:37)
[2017-02-25] MEDS ORDERED: ONDANSETRON 2MG/ML, 2ML ONE (10:38)
[2017-02-25] MEDS ORDERED: morphine SULFATE 10 MG/ML, 1ML IVPush ONE (11:00)
[2017-02-25] MEDS ORDERED: ONDANSETRON 2MG/ML, 2ML IVPush ONE (11:00)
[2017-02-25] MEDS ORDERED: MORP10CA7 PO (11:51)
[2017-02-25] MEDS ORDERED: AMPICILLIN/SULBACTAM 3 GM in SODIUM CHLORIDE 0.9% 100 ML IV SCH (13:30)
[2017-02-25] MEDS ORDERED: VANCOMYCIN PER PHARMACY MC PRN (13:30)
[2017-02-25] MEDS ORDERED: ONDANSETRON 2MG/ML, 2ML IVPush PRN (13:30)
[2017-02-25 15:30] VITALS: BP 123/76
[2017-02-25] MEDS ORDERED: PHARMACOKINETIC MONITORING MC PRN (15:30)
[2017-02-25] MEDS: LACTOBACILLUS CHEW TABLET PO SCH ×2 (16:00→20:42)
[2017-02-25] MEDS: GABAPENTIN 300 MG CAPSULE PO SCH ×2 (16:00→20:42)
[2017-02-25] MEDS: AMPICILLIN/SULBACTAM 3 GM in SODIUM CHLORIDE 0.9% 100 ML IV SCH (17:52)
[2017-02-25] MEDS: SODIUM CHLORIDE 0.9% 1,000 ML IV SCH (17:52)
[2017-02-25 19:49] VITALS: BP 113/66
[2017-02-25] MEDS: VANCOMYCIN 1,400 MG in SODIUM CHLORIDE 0.9% 250 ML IV SCH (20:40)
[2017-02-25] MEDS: ENOXAPARIN 40 MG/0.4 ML SQ SCH (20:44)
[2017-02-26] MEDS: AMPICILLIN/SULBACTAM 3 GM in SODIUM CHLORIDE 0.9% 100 ML IV SCH ×4 (00:04→17:09)
[2017-02-26 02:19] VITALS: BP 110/65
[2017-02-26 02:47] VITALS: BP 113/87
[2017-02-26] MEDS: SODIUM CHLORIDE 0.9% 1,000 ML IV SCH ×3 (05:35→21:31)
[2017-02-26 06:23] LABS: HEMATOCRIT 27.5 % (39.2-51.8); WHITE BLOOD COUNT 7.4 x10^3/uL (3.4-10)
[2017-02-26 06:56] LABS: ASPARTATE AMINO TRANSFERASE 12 U/L (15-37); BLOOD UREA NITROGEN 16 mg/dL (7-18)
[2017-02-26 07:30] VITALS: BP 125/69
[2017-02-26] MEDS: GABAPENTIN 300 MG CAPSULE PO SCH ×3 (11:05→21:29)
[2017-02-26] MEDS: LACTOBACILLUS CHEW TABLET PO SCH ×3 (11:05→21:29)
[2017-02-26] MEDS: SILVER SULF. CRM 1%, 50GM TP SCH (11:06)
[2017-02-26 13:15] VITALS: BP 121/74
[2017-02-26] MEDS: VANCOMYCIN 1,400 MG in SODIUM CHLORIDE 0.9% 250 ML IV SCH (13:31)
[2017-02-26 19:50] VITALS: BP 116/68
[2017-02-26] MEDS: ENOXAPARIN 40 MG/0.4 ML SQ SCH (21:30)
[2017-02-27] MEDS: AMPICILLIN/SULBACTAM 3 GM in SODIUM CHLORIDE 0.9% 100 ML IV SCH ×4 (00:10→17:30)
[2017-02-27 01:32] VITALS: BP 112/62
[2017-02-27] MEDS: SODIUM CHLORIDE 0.9% 1,000 ML IV SCH ×3 (04:47→17:30)
[2017-02-27 06:39] LABS: HEMATOCRIT 28.4 % (39.2-51.8); HEMOGLOBIN 9.4 g/dL (13.7-18.0); WHITE BLOOD COUNT 6.7 x10^3/uL (3.4-10)
[2017-02-27 07:00] LABS: BLOOD UREA NITROGEN 15 mg/dL (7-18)
[2017-02-27] MEDS: GABAPENTIN 300 MG CAPSULE PO SCH ×3 (07:49→21:38)
[2017-02-27] MEDS: LACTOBACILLUS CHEW TABLET PO SCH ×3 (07:49→21:38)
[2017-02-27] MEDS: VANCOMYCIN 1,400 MG in SODIUM CHLORIDE 0.9% 250 ML IV SCH (07:49)
[2017-02-27 08:30] VITALS: BP 150/85
[2017-02-27 14:30] VITALS: BP 130/70
[2017-02-27] MEDS: SILVER SULF. CRM 1%, 50GM TP SCH (15:22)
[2017-02-27 20:19] VITALS: BP 150/82
[2017-02-27] MEDS: ENOXAPARIN 40 MG/0.4 ML SQ SCH (21:39)
[2017-02-28] MEDS: AMPICILLIN/SULBACTAM 3 GM in SODIUM CHLORIDE 0.9% 100 ML IV SCH ×4 (01:19→21:26)
[2017-02-28] MEDS: VANCOMYCIN 1,400 MG in SODIUM CHLORIDE 0.9% 250 ML IV SCH ×2 (01:53→19:36)
[2017-02-28 03:19] VITALS: BP 152/82
[2017-02-28 05:15] LABS: HEMATOCRIT 27.3 % (39.2-51.8); WHITE BLOOD COUNT 6.6 x10^3/uL (3.4-10)
[2017-02-28 05:29] LABS: BLOOD UREA NITROGEN 15 mg/dL (7-18)
[2017-02-28 08:30] VITALS: BP 154/89
[2017-02-28] MEDS: SILVER SULF. CRM 1%, 50GM TP SCH (09:18)
[2017-02-28] MEDS: LACTOBACILLUS CHEW TABLET PO SCH ×3 (09:18→20:24)
[2017-02-28] MEDS: GABAPENTIN 300 MG CAPSULE PO SCH ×3 (09:18→20:24)
[2017-02-28 14:30] VITALS: BP 154/93
[2017-02-28 20:06] VITALS: BP 156/88
[2017-02-28] MEDS: ENOXAPARIN 40 MG/0.4 ML SQ SCH (20:25)
[2017-03-01 02:08] VITALS: BP 150/81
[2017-03-01] MEDS: AMPICILLIN/SULBACTAM 3 GM in SODIUM CHLORIDE 0.9% 100 ML IV SCH ×4 (03:02→21:14)
[2017-03-01 04:24] LABS: PATH.CAST-FLAG NOT PRESENT; SPERM-FLAG NOT PRESENT; SRC-FLAG NOT PRESENT; XTAL-FLAG NOT PRESENT; YLC-FLAG NOT PRESENT
[2017-03-01 05:46] LABS: HEMOGLOBIN 10.1 g/dL (13.7-18.0); WHITE BLOOD COUNT 7.8 x10^3/uL (3.4-10)
[2017-03-01 05:59] LABS: BLOOD UREA NITROGEN 15 mg/dL (7-18)
[2017-03-01 08:30] VITALS: BP 136/91
[2017-03-01] MEDS: LACTOBACILLUS CHEW TABLET PO SCH ×3 (09:57→21:14)
[2017-03-01] MEDS: GABAPENTIN 300 MG CAPSULE PO SCH ×3 (09:57→21:14)
[2017-03-01 14:30] VITALS: BP 150/90
[2017-03-01] MEDS: VANCOMYCIN 1,400 MG in SODIUM CHLORIDE 0.9% 250 ML IV SCH (15:21)
[2017-03-01] MEDS: SILVER SULF. CRM 1%, 50GM TP SCH (15:23)
[2017-03-01] MEDS: MORPHINE SULFATE 4 MG/ML, 1ML IVPush PRN (16:05)
[2017-03-01 20:15] VITALS: BP 141/83
[2017-03-01] MEDS: ENOXAPARIN 40 MG/0.4 ML SQ SCH (21:14)
[2017-03-02] MEDS: AMPICILLIN/SULBACTAM 3 GM in SODIUM CHLORIDE 0.9% 100 ML IV SCH ×4 (03:10→21:01)
[2017-03-02] MEDS: MORPHINE SULFATE 4 MG/ML, 1ML IVPush PRN ×2 (03:52→12:41)
[2017-03-02 04:00] VITALS: BP 150/91
[2017-03-02 05:33] LABS: HEMATOCRIT 28.7 % (39.2-51.8); HEMOGLOBIN 9.7 g/dL (13.7-18.0); WHITE BLOOD COUNT 8.8 x10^3/uL (3.4-10)
[2017-03-02 05:41] LABS: BLOOD UREA NITROGEN 18 mg/dL (7-18)
[2017-03-02 08:00] VITALS: BP 168/90
[2017-03-02] MEDS: LACTOBACILLUS CHEW TABLET PO SCH ×3 (08:06→21:00)
[2017-03-02] MEDS: GABAPENTIN 300 MG CAPSULE PO SCH ×3 (08:06→21:00)
[2017-03-02] MEDS: VANCOMYCIN 1,400 MG in SODIUM CHLORIDE 0.9% 250 ML IV SCH (08:07)
[2017-03-02] MEDS: SILVER SULF. CRM 1%, 50GM TP SCH (10:02)
[2017-03-02 13:45] VITALS: BP 117/74
[2017-03-02 19:46] VITALS: BP 122/78
[2017-03-02] MEDS: ENOXAPARIN 40 MG/0.4 ML SQ SCH (21:01)
[2017-03-03] MEDS: VANCOMYCIN 1,400 MG in SODIUM CHLORIDE 0.9% 250 ML IV SCH ×2 (01:20→19:06)
[2017-03-03 02:27] VITALS: BP 131/70
[2017-03-03] MEDS: AMPICILLIN/SULBACTAM 3 GM in SODIUM CHLORIDE 0.9% 100 ML IV SCH ×4 (03:03→20:55)
[2017-03-03 05:09] LABS: HEMATOCRIT 27.9 % (39.2-51.8); HEMOGLOBIN 9.3 g/dL (13.7-18.0); WHITE BLOOD COUNT 8.4 x10^3/uL (3.4-10)
[2017-03-03 05:21] LABS: BLOOD UREA NITROGEN 21 mg/dL (7-18)
[2017-03-03 07:26] VITALS: BP 158/82
[2017-03-03] MEDS: GABAPENTIN 300 MG CAPSULE PO SCH ×3 (08:12→20:55)
[2017-03-03] MEDS: LACTOBACILLUS CHEW TABLET PO SCH ×3 (08:12→20:55)
[2017-03-03] MEDS: SILVER SULF. CRM 1%, 50GM TP SCH (08:52)
[2017-03-03 14:00] VITALS: BP 133/85
[2017-03-03 19:30] VITALS: BP 135/86
[2017-03-03] MEDS: ENOXAPARIN 40 MG/0.4 ML SQ SCH (20:56)
[2017-03-04] MEDS: AMPICILLIN/SULBACTAM 3 GM in SODIUM CHLORIDE 0.9% 100 ML IV SCH ×4 (03:02→21:40)
[2017-03-04 03:19] VITALS: BP 137/80
[2017-03-04 06:02] LABS: HEMATOCRIT 27.6 % (39.2-51.8); HEMOGLOBIN 9.2 g/dL (13.7-18.0); WHITE BLOOD COUNT 7.6 x10^3/uL (3.4-10)
[2017-03-04 06:26] LABS: BLOOD UREA NITROGEN 19 mg/dL (7-18)
[2017-03-04] MEDS: LACTOBACILLUS CHEW TABLET PO SCH ×3 (07:44→19:40)
[2017-03-04] MEDS: GABAPENTIN 300 MG CAPSULE PO SCH ×3 (07:44→19:40)
[2017-03-04] MEDS: SILVER SULF. CRM 1%, 50GM TP SCH (09:00)
[2017-03-04 09:16] VITALS: BP 128/76
[2017-03-04] MEDS: VANCOMYCIN 1,400 MG in SODIUM CHLORIDE 0.9% 250 ML IV SCH ×2 (13:00→18:41)
[2017-03-04 13:55] VITALS: BP 149/87
[2017-03-04] MEDS: MUPIROCIN OINT 2%, 22GM TP SCH (17:25)
[2017-03-04 19:31] VITALS: BP 140/88
[2017-03-04] MEDS: ENOXAPARIN 40 MG/0.4 ML SQ SCH (19:41)
[2017-03-05 02:19] VITALS: BP 142/82
[2017-03-05] MEDS: AMPICILLIN/SULBACTAM 3 GM in SODIUM CHLORIDE 0.9% 100 ML IV SCH ×4 (03:07→21:29)
[2017-03-05 08:14] VITALS: BP 164/102
[2017-03-05 08:34] VITALS: BP 138/83
[2017-03-05] MEDS: LACTOBACILLUS CHEW TABLET PO SCH ×3 (09:12→20:35)
[2017-03-05] MEDS: GABAPENTIN 300 MG CAPSULE PO SCH ×3 (09:12→20:35)
[2017-03-05 15:34] VITALS: BP 172/91
[2017-03-05] MEDS: MUPIROCIN OINT 2%, 22GM TP SCH (16:00)
[2017-03-05] MEDS: VANCOMYCIN 1,400 MG in SODIUM CHLORIDE 0.9% 250 ML IV SCH (19:24)
[2017-03-05 20:29] VITALS: BP 160/98
[2017-03-05] MEDS: ENOXAPARIN 40 MG/0.4 ML SQ SCH (20:35)
[2017-03-06 01:55] VITALS: BP 142/77
[2017-03-06] MEDS: AMPICILLIN/SULBACTAM 3 GM in SODIUM CHLORIDE 0.9% 100 ML IV SCH ×2 (02:55→08:09)
[2017-03-06] MEDS: GABAPENTIN 300 MG CAPSULE PO SCH (08:09)
[2017-03-06] MEDS: LACTOBACILLUS CHEW TABLET PO SCH (08:09)
[2017-03-06] MEDS: MUPIROCIN OINT 2%, 22GM TP SCH (08:09)
[2017-03-06 08:26] VITALS: BP 143/93
[2017-03-06] MEDS ORDERED: SULF-169 PO (08:37)
[2017-03-06] MEDS ORDERED: MUPI22OI2 TP (08:37)
[2017-03-06] MEDS ORDERED: ENOX40SY4 SQ (08:37)
[2017-03-06] MEDS ORDERED: AMOX1TAB12 PO (08:37)
[2017-03-06] MEDS ORDERED: ACID1TAB7 PO (08:37)
[2017-03-06] MEDS ORDERED: AMOXICILLIN/CLAV 875-125MG TABLET PO SCH (09:00)
[2017-03-06] MEDS ORDERED: SULFAMETH./TRIMETHOPRIM DS 800MG/160MG TABLET PO SCH (09:00)
== END 2017-03-06 09:40 | DRG 602 ==
LOC: ED 10:18 → EDIP 12:24 → 3NE 14:55
PROVIDERS: ADMIT Internal Medicine; ATTEND Internal Medicine
DX: L03.116 Cellulitis of left lower limb (principal); E43 Unspecified severe protein-calorie malnutrition; B87.89 Myiasis of other sites; D63.8 Anemia in other chronic diseases classified elsewhere; B95.62 Methicillin resistant Staphylococcus aureus infection as the cause of diseases classified elsewhere; B87.9 Myiasis, unspecified; D75.89 Other specified diseases of blood and blood-forming organs; J44.9 Chronic obstructive pulmonary disease, unspecified; M54.30 Sciatica, unspecified side; M54.9 Dorsalgia, unspecified; G89.29 Other chronic pain; I10 Essential (primary) hypertension; Z59.0 Homelessness; Z85.828 Personal history of other malignant neoplasm of skin; Z87.891 Personal history of nicotine dependence; Z90.89 Acquired absence of other organs
CPT/HCPCS: 36415; 80048; 80053; 80202; 81001; 82040; 83605; 85025; 87040; 87070; 87077; 87086; 87186; 87205; 96365; 96375; J0295; J1650; J2405; J3370; J2270; J7030; J7050

== ENCOUNTER 2017-03-24 09:57 | Inpatient (IN) | payer MEDICARE ==
[~2017-03-24] VITALS: Ht 182.9 cm; Wt 70.0 kg
[~2017-03-24 09:57] MED LIST changes: +ACID1TAB7 PO; +AMOX1TAB12 PO; +ENOX40SY4 SQ; +MORP10CA7 PO; +MUPI22OI2 TP; +SULF-169 PO
[2017-03-24 11:36] LABS: WHITE BLOOD COUNT 8.3 x10^3/uL (3.4-10)
[2017-03-24 11:42] LABS: BLOOD UREA NITROGEN 30 mg/dL (7-18)
[2017-03-24] MEDS ORDERED: HYDROcodone/APAP 5/325 TABLET ONE (12:20)
[2017-03-24] MEDS ORDERED: HYDROcodone/APAP 5/325 TABLET PO ONE (12:30)
[2017-03-24] MEDS ORDERED: SODIUM CHLORIDE 0.9% 1,000 ML IV SCH (12:51)
[2017-03-24] MEDS ORDERED: ACETAMINOPHEN 325 MG TABLET PO PRN (13:00)
[2017-03-24] MEDS: GABAPENTIN 300 MG CAPSULE PO SCH ×3 (13:00→20:11)
[2017-03-24] MEDS: NICOTINE 14MG/24 HR PATCH.TD24 TD SCH (13:00)
[2017-03-24] MEDS ORDERED: ONDANSETRON 2MG/ML, 2ML IVPush PRN (13:00)
[2017-03-24] MEDS ORDERED: VANCOMYCIN PER PHARMACY MC PRN (13:00)
[2017-03-24] MEDS ORDERED: DOCUSATE 100 MG CAPSULE PO PRN (13:00)
[2017-03-24] MEDS ORDERED: POLYETHYLENE GLYCOL 17 GM PACKET PO PRN (13:00)
[2017-03-24] MEDS ORDERED: VANCOMYCIN 1,500 MG in SODIUM CHLORIDE 0.9% 250 ML IV ONE (13:30)
[2017-03-24 15:30] VITALS: BP 120/78
[2017-03-24] MEDS: HEPARIN 5,000 UNITS/ML, 1ML SQ SCH (15:56)
[2017-03-24] MEDS ORDERED: PHARMACOKINETIC MONITORING MC PRN (16:30)
[2017-03-24] MEDS ORDERED: PHARMACOKINETIC CONSULTATION MC ONE (16:30)
[2017-03-24 19:56] VITALS: BP 130/81
[2017-03-25] MEDS: HEPARIN 5,000 UNITS/ML, 1ML SQ SCH ×4 (00:17→23:49)
[2017-03-25 02:42] VITALS: BP 101/63
[2017-03-25 06:21] LABS: BLOOD UREA NITROGEN 24 mg/dL (7-18)
[2017-03-25 08:28] VITALS: BP 115/72
[2017-03-25] MEDS: GABAPENTIN 300 MG CAPSULE PO SCH ×3 (10:10→19:54)
[2017-03-25] MEDS: SENNA/DOCUSATE TABLET PO SCH (10:11)
[2017-03-25] MEDS: NICOTINE 14MG/24 HR PATCH.TD24 TD SCH (12:51)
[2017-03-25 13:56] VITALS: BP 107/68
[2017-03-25] MEDS: VANCOMYCIN 1,400 MG in SODIUM CHLORIDE 0.9% 250 ML IV SCH (15:18)
[2017-03-25] MEDS: MUPIROCIN OINT 2%, 22GM TP SCH (15:24)
[2017-03-25 19:48] VITALS: BP 106/68
[2017-03-26 02:50] VITALS: BP 109/64
[2017-03-26 05:37] LABS: BLOOD UREA NITROGEN 21 mg/dL (7-18)
[2017-03-26] MEDS: GABAPENTIN 300 MG CAPSULE PO SCH ×3 (08:42→20:43)
[2017-03-26] MEDS: HEPARIN 5,000 UNITS/ML, 1ML SQ SCH ×2 (08:42→16:04)
[2017-03-26] MEDS: MUPIROCIN OINT 2%, 22GM TP SCH (08:43)
[2017-03-26] MEDS: SENNA/DOCUSATE TABLET PO SCH (08:43)
[2017-03-26 09:42] VITALS: BP 109/65
[2017-03-26] MEDS: NICOTINE 14MG/24 HR PATCH.TD24 TD SCH (12:19)
[2017-03-26 15:17] VITALS: BP 124/79
[2017-03-26] MEDS: VANCOMYCIN 1,400 MG in SODIUM CHLORIDE 0.9% 250 ML IV SCH (16:04)
[2017-03-26] MEDS: HYDROcodone/APAP 5/325 TABLET PO PRN (16:09)
[2017-03-26 20:36] VITALS: BP 127/75
[2017-03-27] MEDS: HYDROcodone/APAP 5/325 TABLET PO PRN ×2 (00:03→21:03)
[2017-03-27] MEDS: HEPARIN 5,000 UNITS/ML, 1ML SQ SCH ×4 (00:04→23:42)
[2017-03-27 03:52] VITALS: BP 122/79
[2017-03-27 08:17] VITALS: BP 134/80
[2017-03-27] MEDS: MUPIROCIN OINT 2%, 22GM TP SCH (08:38)
[2017-03-27] MEDS: GABAPENTIN 300 MG CAPSULE PO SCH ×3 (08:38→20:18)
[2017-03-27] MEDS: SENNA/DOCUSATE TABLET PO SCH (08:39)
[2017-03-27 11:27] LABS: HEMATOCRIT 29.7 % (39.2-51.8); WHITE BLOOD COUNT 9.3 x10^3/uL (3.4-10)
[2017-03-27] MEDS: NICOTINE 14MG/24 HR PATCH.TD24 TD SCH (11:30)
[2017-03-27 11:39] LABS: BLOOD UREA NITROGEN 19 mg/dL (7-18)
[2017-03-27] MEDS ORDERED: PHARMACY MAY ADJ FOR RENAL FX MC PRN (14:00)
[2017-03-27] MEDS: AMPICILLIN/SULBACTAM 3 GM in SODIUM CHLORIDE 0.9% 100 ML IV SCH ×2 (16:36→20:18)
[2017-03-27 17:06] VITALS: BP 142/90
[2017-03-27 19:06] VITALS: BP 134/83
[2017-03-27] MEDS: morphine SULFATE 10 MG/ML, 1ML IVPush PRN (20:18)
[2017-03-27] MEDS: DOXYCYCLINE 100MG TABLET PO SCH (20:56)
[2017-03-28] MEDS: AMPICILLIN/SULBACTAM 3 GM in SODIUM CHLORIDE 0.9% 100 ML IV SCH ×4 (02:05→21:36)
[2017-03-28 02:20] VITALS: BP 125/77
[2017-03-28 05:58] LABS: HEMATOCRIT 31.9 % (39.2-51.8); HEMOGLOBIN 10.4 g/dL (13.7-18.0)
[2017-03-28 06:05] LABS: BLOOD UREA NITROGEN 17 mg/dL (7-18)
[2017-03-28 08:29] VITALS: BP 119/85
[2017-03-28] MEDS: SENNA/DOCUSATE TABLET PO SCH (08:47)
[2017-03-28] MEDS: DOXYCYCLINE 100MG TABLET PO SCH ×2 (08:58→21:36)
[2017-03-28] MEDS: GABAPENTIN 300 MG CAPSULE PO SCH ×3 (08:58→21:36)
[2017-03-28] MEDS: HEPARIN 5,000 UNITS/ML, 1ML SQ SCH ×2 (08:59→17:58)
[2017-03-28] MEDS: morphine SULFATE 10 MG/ML, 1ML IVPush PRN ×2 (08:59→17:58)
[2017-03-28] MEDS: MUPIROCIN OINT 2%, 22GM TP SCH (09:00)
[2017-03-28] MEDS: NICOTINE 14MG/24 HR PATCH.TD24 TD SCH (13:00)
[2017-03-28] MEDS: HYDROcodone/APAP 5/325 TABLET PO PRN ×2 (13:56→21:41)
[2017-03-28 19:29] VITALS: BP 123/82
[2017-03-29 02:20] VITALS: BP 115/80
[2017-03-29] MEDS: HYDROcodone/APAP 5/325 TABLET PO PRN ×3 (03:52→23:44)
[2017-03-29] MEDS: AMPICILLIN/SULBACTAM 3 GM in SODIUM CHLORIDE 0.9% 100 ML IV SCH ×3 (03:52→17:31)
[2017-03-29] MEDS: HEPARIN 5,000 UNITS/ML, 1ML SQ SCH ×3 (03:53→20:00)
[2017-03-29 05:27] LABS: HEMATOCRIT 30.2 % (39.2-51.8); HEMOGLOBIN 9.9 g/dL (13.7-18.0); WHITE BLOOD COUNT 6.6 x10^3/uL (3.4-10)
[2017-03-29 05:51] LABS: ASPARTATE AMINO TRANSFERASE 11 U/L (15-37); BLOOD UREA NITROGEN 19 mg/dL (7-18)
[2017-03-29 08:01] VITALS: BP 119/83
[2017-03-29] MEDS: DOXYCYCLINE 100MG TABLET PO SCH ×2 (08:56→21:20)
[2017-03-29] MEDS: morphine SULFATE 10 MG/ML, 1ML IVPush PRN ×3 (08:56→21:20)
[2017-03-29] MEDS: GABAPENTIN 300 MG CAPSULE PO SCH ×3 (08:56→21:20)
[2017-03-29] MEDS: SENNA/DOCUSATE TABLET PO SCH (08:56)
[2017-03-29] MEDS: MUPIROCIN OINT 2%, 22GM TP SCH (08:57)
[2017-03-29] MEDS: SODIUM CHLORIDE 0.9% 1,000 ML IV SCH ×2 (12:58→23:44)
[2017-03-29] MEDS: NICOTINE 14MG/24 HR PATCH.TD24 TD SCH (12:58)
[2017-03-29] MEDS ORDERED: PHARMACY MAY ADJ FOR RENAL FX MC PRN (13:00)
[2017-03-29 15:43] VITALS: BP 116/77
[2017-03-29 20:52] VITALS: BP 116/85
[2017-03-30] MEDS: AMPICILLIN/SULBACTAM 3 GM in SODIUM CHLORIDE 0.9% 100 ML IV SCH ×3 (01:45→17:11)
[2017-03-30] MEDS: HEPARIN 5,000 UNITS/ML, 1ML SQ SCH ×3 (04:00→20:54)
[2017-03-30 06:12] LABS: HEMATOCRIT 29.4 % (39.2-51.8); HEMOGLOBIN 9.7 g/dL (13.7-18.0); WHITE BLOOD COUNT 6.3 x10^3/uL (3.4-10)
[2017-03-30 06:21] LABS: ASPARTATE AMINO TRANSFERASE 14 U/L (15-37); BLOOD UREA NITROGEN 19 mg/dL (7-18)
[2017-03-30 08:08] VITALS: BP 143/80
[2017-03-30] MEDS: GABAPENTIN 300 MG CAPSULE PO SCH ×3 (09:31→20:53)
[2017-03-30] MEDS: DOXYCYCLINE 100MG TABLET PO SCH ×2 (09:31→20:53)
[2017-03-30] MEDS: SENNA/DOCUSATE TABLET PO SCH (09:31)
[2017-03-30] MEDS: MUPIROCIN OINT 2%, 22GM TP SCH (09:31)
[2017-03-30] MEDS: HYDROcodone/APAP 5/325 TABLET PO PRN ×3 (09:31→23:45)
[2017-03-30] MEDS: SODIUM CHLORIDE 0.9% 1,000 ML IV SCH ×2 (09:33→20:55)
[2017-03-30] MEDS: NICOTINE 14MG/24 HR PATCH.TD24 TD SCH (11:30)
[2017-03-30] MEDS: morphine SULFATE 10 MG/ML, 1ML IVPush PRN ×2 (11:36→11:38)
[2017-03-30 20:13] VITALS: BP 125/69
[2017-03-30] MEDS ORDERED: ACETAMINOPHEN 325 MG TABLET PO PRN (20:30)
[2017-03-30] MEDS ORDERED: POLYETHYLENE GLYCOL 17 GM PACKET PO PRN (20:30)
[2017-03-30] MEDS ORDERED: DOCUSATE 100 MG CAPSULE PO PRN (20:30)
[2017-03-30] MEDS ORDERED: PHARMACY MAY ADJ FOR RENAL FX MC PRN ×2 (20:30)
[2017-03-30] MEDS ORDERED: ONDANSETRON 2MG/ML, 2ML IVPush PRN (20:30)
[2017-03-31] MEDS: AMPICILLIN/SULBACTAM 3 GM in SODIUM CHLORIDE 0.9% 100 ML IV SCH ×3 (01:22→18:16)
[2017-03-31] MEDS: HEPARIN 5,000 UNITS/ML, 1ML SQ SCH ×3 (04:00→21:59)
[2017-03-31 05:50] LABS: HEMATOCRIT 28.8 % (39.2-51.8); HEMOGLOBIN 9.6 g/dL (13.7-18.0); WHITE BLOOD COUNT 6.8 x10^3/uL (3.4-10)
[2017-03-31 06:00] LABS: BLOOD UREA NITROGEN 18 mg/dL (7-18)
[2017-03-31] MEDS: SODIUM CHLORIDE 0.9% 1,000 ML IV SCH ×2 (06:00→16:28)
[2017-03-31 08:12] VITALS: BP 145/81
[2017-03-31] MEDS: DOXYCYCLINE 100MG TABLET PO SCH ×2 (10:14→21:58)
[2017-03-31] MEDS: SENNA/DOCUSATE TABLET PO SCH (10:14)
[2017-03-31] MEDS: GABAPENTIN 300 MG CAPSULE PO SCH ×3 (10:14→21:58)
[2017-03-31] MEDS: morphine SULFATE 10 MG/ML, 1ML IVPush PRN (10:57)
[2017-03-31] MEDS: MUPIROCIN OINT 2%, 22GM TP SCH (11:02)
[2017-03-31] MEDS: HYDROcodone/APAP 5/325 TABLET PO PRN ×2 (11:12→21:58)
[2017-03-31] MEDS: NICOTINE 14MG/24 HR PATCH.TD24 TD SCH (13:00)
[2017-03-31 14:43] VITALS: BP 141/84
[2017-03-31 19:57] VITALS: BP 134/75
[2017-04-01] MEDS: AMPICILLIN/SULBACTAM 3 GM in SODIUM CHLORIDE 0.9% 100 ML IV SCH ×3 (01:36→19:36)
[2017-04-01] MEDS: SODIUM CHLORIDE 0.9% 1,000 ML IV SCH ×3 (01:37→23:56)
[2017-04-01 05:37] LABS: HEMATOCRIT 28.6 % (39.2-51.8); HEMOGLOBIN 9.7 g/dL (13.7-18.0); WHITE BLOOD COUNT 6.7 x10^3/uL (3.4-10)
[2017-04-01] MEDS: HEPARIN 5,000 UNITS/ML, 1ML SQ SCH ×3 (05:45→21:36)
[2017-04-01 05:49] LABS: BLOOD UREA NITROGEN 18 mg/dL (7-18)
[2017-04-01 07:47] VITALS: BP 160/86
[2017-04-01] MEDS: SENNA/DOCUSATE TABLET PO SCH (09:00)
[2017-04-01] MEDS: morphine SULFATE 10 MG/ML, 1ML IVPush PRN (10:25)
[2017-04-01] MEDS: DOXYCYCLINE 100MG TABLET PO SCH ×2 (10:33→21:35)
[2017-04-01] MEDS: GABAPENTIN 300 MG CAPSULE PO SCH ×3 (10:33→21:35)
[2017-04-01] MEDS: MUPIROCIN OINT 2%, 22GM TP SCH (10:33)
[2017-04-01] MEDS: NICOTINE 14MG/24 HR PATCH.TD24 TD SCH (13:00)
[2017-04-01 13:53] VITALS: BP 138/77
[2017-04-01] MEDS: HYDROcodone/APAP 5/325 TABLET PO PRN (16:57)
[2017-04-01 19:39] VITALS: BP 155/91
[2017-04-02] MEDS: AMPICILLIN/SULBACTAM 3 GM in SODIUM CHLORIDE 0.9% 100 ML IV SCH ×3 (02:56→20:01)
[2017-04-02] MEDS: HEPARIN 5,000 UNITS/ML, 1ML SQ SCH ×3 (04:54→22:32)
[2017-04-02 05:37] LABS: BLOOD UREA NITROGEN 21 mg/dL (7-18)
[2017-04-02] MEDS: SENNA/DOCUSATE TABLET PO SCH (08:49)
[2017-04-02] MEDS: DOXYCYCLINE 100MG TABLET PO SCH ×2 (08:49→20:01)
[2017-04-02] MEDS: GABAPENTIN 300 MG CAPSULE PO SCH ×3 (08:49→20:01)
[2017-04-02] MEDS: MUPIROCIN OINT 2%, 22GM TP SCH (08:49)
[2017-04-02 09:16] VITALS: BP 146/96
[2017-04-02] MEDS: HYDROcodone/APAP 5/325 TABLET PO PRN ×2 (09:17→15:39)
[2017-04-02] MEDS: SODIUM CHLORIDE 0.9% 1,000 ML IV SCH ×2 (09:18→20:13)
[2017-04-02] MEDS: NICOTINE 14MG/24 HR PATCH.TD24 TD SCH (11:47)
[2017-04-02 13:19] VITALS: BP 142/92
[2017-04-02 20:00] VITALS: BP 152/94
[2017-04-03 01:27] VITALS: BP 154/95
[2017-04-03] MEDS: AMPICILLIN/SULBACTAM 3 GM in SODIUM CHLORIDE 0.9% 100 ML IV SCH ×3 (03:48→20:08)
[2017-04-03] MEDS: HYDROcodone/APAP 5/325 TABLET PO PRN ×3 (03:55→17:39)
[2017-04-03 06:00] LABS: HEMATOCRIT 28.9 % (39.2-51.8); HEMOGLOBIN 9.6 g/dL (13.7-18.0); WHITE BLOOD COUNT 7.6 x10^3/uL (3.4-10)
[2017-04-03 06:12] LABS: BLOOD UREA NITROGEN 20 mg/dL (7-18)
[2017-04-03] MEDS: HEPARIN 5,000 UNITS/ML, 1ML SQ SCH ×3 (06:26→22:18)
[2017-04-03] MEDS: GABAPENTIN 300 MG CAPSULE PO SCH ×4 (06:26→20:08)
[2017-04-03 08:00] VITALS: BP 124/84
[2017-04-03] MEDS: MUPIROCIN OINT 2%, 22GM TP SCH (08:35)
[2017-04-03] MEDS: SENNA/DOCUSATE TABLET PO SCH (08:35)
[2017-04-03] MEDS: SODIUM CHLORIDE 0.9% 1,000 ML IV SCH ×2 (08:35→17:42)
[2017-04-03] MEDS: DOXYCYCLINE 100MG TABLET PO SCH ×2 (08:35→20:08)
[2017-04-03 14:32] VITALS: BP 147/93
[2017-04-03] MEDS: NICOTINE 14MG/24 HR PATCH.TD24 TD SCH (15:51)
[2017-04-03 19:04] VITALS: BP 145/91
[2017-04-04 03:25] VITALS: BP 143/98
[2017-04-04] MEDS: SODIUM CHLORIDE 0.9% 1,000 ML IV SCH ×2 (03:28→16:28)
[2017-04-04] MEDS: HYDROcodone/APAP 5/325 TABLET PO PRN ×3 (03:28→21:02)
[2017-04-04] MEDS: AMPICILLIN/SULBACTAM 3 GM in SODIUM CHLORIDE 0.9% 100 ML IV SCH ×3 (03:28→21:02)
[2017-04-04] MEDS: GABAPENTIN 300 MG CAPSULE PO SCH ×4 (06:13→21:01)
[2017-04-04] MEDS: HEPARIN 5,000 UNITS/ML, 1ML SQ SCH ×3 (06:13→21:02)
[2017-04-04 07:49] VITALS: BP 127/82
[2017-04-04] MEDS: SENNA/DOCUSATE TABLET PO SCH (09:32)
[2017-04-04] MEDS: DOXYCYCLINE 100MG TABLET PO SCH ×2 (09:32→21:01)
[2017-04-04] MEDS: NICOTINE 14MG/24 HR PATCH.TD24 TD SCH (13:00)
[2017-04-04] MEDS: MUPIROCIN OINT 2%, 22GM TP SCH (13:17)
[2017-04-04 14:00] VITALS: BP 151/89
[2017-04-04 19:53] VITALS: BP 152/91
[2017-04-05] MEDS: SODIUM CHLORIDE 0.9% 1,000 ML IV SCH ×2 (02:52→23:19)
[2017-04-05 04:58] VITALS: BP 147/96
[2017-04-05] MEDS: GABAPENTIN 300 MG CAPSULE PO SCH ×4 (05:07→20:18)
[2017-04-05] MEDS: HEPARIN 5,000 UNITS/ML, 1ML SQ SCH ×3 (05:08→20:18)
[2017-04-05] MEDS: AMPICILLIN/SULBACTAM 3 GM in SODIUM CHLORIDE 0.9% 100 ML IV SCH ×3 (05:08→20:18)
[2017-04-05 05:52] LABS: HEMATOCRIT 30.2 % (39.2-51.8); HEMOGLOBIN 10.1 g/dL (13.7-18.0); WHITE BLOOD COUNT 8.3 x10^3/uL (3.4-10)
[2017-04-05 06:00] LABS: BLOOD UREA NITROGEN 20 mg/dL (7-18)
[2017-04-05 06:05] LABS: ASPARTATE AMINO TRANSFERASE 15 U/L (15-37)
[2017-04-05 08:19] VITALS: BP 172/99
[2017-04-05 08:50] VITALS: BP 159/84
[2017-04-05] MEDS: DOXYCYCLINE 100MG TABLET PO SCH ×2 (08:53→20:18)
[2017-04-05] MEDS: MUPIROCIN OINT 2%, 22GM TP SCH (08:53)
[2017-04-05] MEDS: SENNA/DOCUSATE TABLET PO SCH (08:53)
[2017-04-05] MEDS: HYDROcodone/APAP 5/325 TABLET PO PRN ×2 (08:58→18:28)
[2017-04-05] MEDS: NICOTINE 14MG/24 HR PATCH.TD24 TD SCH (13:11)
[2017-04-05] MEDS ORDERED: GABA300C10 PO (13:29)
[2017-04-05] MEDS ORDERED: DOXY100T PO (13:29)
[2017-04-05] MEDS ORDERED: MUPI22OI2 TP (13:29)
[2017-04-05 13:49] VITALS: BP 159/98
[2017-04-05 20:00] VITALS: BP 158/90
[2017-04-06] MEDS: HYDROcodone/APAP 5/325 TABLET PO PRN ×2 (00:20→06:13)
[2017-04-06] MEDS: HEPARIN 5,000 UNITS/ML, 1ML SQ SCH ×2 (05:40→13:52)
[2017-04-06] MEDS: AMPICILLIN/SULBACTAM 3 GM in SODIUM CHLORIDE 0.9% 100 ML IV SCH ×2 (05:40→13:00)
[2017-04-06] MEDS: GABAPENTIN 300 MG CAPSULE PO SCH ×2 (06:13→10:06)
[2017-04-06 06:27] VITALS: BP 154/88
[2017-04-06 08:16] VITALS: BP 142/82
[2017-04-06] MEDS: SODIUM CHLORIDE 0.9% 1,000 ML IV SCH (09:00)
[2017-04-06] MEDS: SENNA/DOCUSATE TABLET PO SCH (09:00)
[2017-04-06] MEDS: DOXYCYCLINE 100MG TABLET PO SCH (10:06)
[2017-04-06] MEDS: MUPIROCIN OINT 2%, 22GM TP SCH (10:06)
[2017-04-06] MEDS: NICOTINE 14MG/24 HR PATCH.TD24 TD SCH (13:00)
== END 2017-04-06 14:08 | DRG 602 ==
LOC: ED 12:22 → EDIP 12:23 → ED 12:35 → SUATTDRO 12:37 → 3NE 14:25
PROVIDERS: ADMIT Hospitalist; ATTEND Hospitalist
DX: L03.116 Cellulitis of left lower limb (principal); N17.0 Acute kidney failure with tubular necrosis; E44.0 Moderate protein-calorie malnutrition; Z86.14 Personal history of Methicillin resistant Staphylococcus aureus infection; Z59.0 Homelessness; I10 Essential (primary) hypertension; L03.115 Cellulitis of right lower limb; E86.0 Dehydration; F17.200 Nicotine dependence, unspecified, uncomplicated; G62.9 Polyneuropathy, unspecified; M85.879 Other specified disorders of bone density and structure, unspecified ankle and foot; Z66 Do not resuscitate; Z68.20 Body mass index [BMI] 20.0-20.9, adult
CPT/HCPCS: 36415; 80048; 80053; 80202; 82040; 83735; 85025; 85651; 86140; 87040; 99285; J0295; J1644; J3370; J2270; J7030; J7050

== ENCOUNTER 2017-04-21 16:37 | Inpatient (IN) | payer MEDICARE, MEDICAID ==
[~2017-04-21] VITALS: Ht 182.9 cm; Wt 73.0 kg
[~2017-04-21 16:37] MED LIST changes: +DOXY100T PO; +HEPA500041 SQ; -[UNRECOGNIZED DRUG - CODE] SQ
[2017-04-21] MEDS ORDERED: ONDANSETRON 2MG/ML, 2ML IVPush ONE (17:00)
[2017-04-21] MEDS ORDERED: SODIUM CHLORIDE 0.9% 1,000ML IVBOLUS ONE (17:00)
[2017-04-21] MEDS ORDERED: morphine SULFATE 10 MG/ML, 1ML ONE ×2 (17:14→18:47)
[2017-04-21] MEDS ORDERED: ONDANSETRON 2MG/ML, 2ML ONE (17:15)
[2017-04-21] MEDS: MORPHINE SULFATE 4 MG/ML, 1ML IVPush PRN ×2 (17:22→18:51)
[2017-04-21] MEDS ORDERED: VANCOMYCIN PER PHARMACY MC ONE ×2 (17:30→18:00)
[2017-04-21] MEDS ORDERED: VANCOMYCIN 1,300 MG in SODIUM CHLORIDE 0.9% 250 ML IV ONE (18:00)
[2017-04-21 18:25] LABS: BASOPHILS # (AUTO) 0.04 x10^3/uL (0-0.1); BASOPHILS % (AUTO) 1 % (0-1); EOSINOPHILS % (AUTO) 4 % (1-7); LYMPHOCYTES # (AUTO) 0.96 x10^3/uL (1-3.4); LYMPHOCYTES % (AUTO) 12 % (22-44); MD NO; MEAN CORPUSCULAR HGB CONC 33.1 g/dL (33.2-36.2); MEAN CORPUSCULAR VOLUME 87.6 fL (81-97); MEAN PLATELET VOLUME 7.3 fL (7.4-10.4); MONOCYTES # (AUTO) 0.96 x10^3/uL (0.2-0.8); MONOCYTES % (AUTO) 12 % (2-9); NEUTROPHILS # (AUTO) 5.95 x10^3/uL (1.8-6.8); NEUTROPHILS % (AUTO) 73 % (42-75); PLATELET COUNT 349 x10^3/uL (130-400); RED BLOOD COUNT 3.63 x10^6/uL (4.38-5.82); RED CELL DISTRIBUTION WIDTH 17.3 % (9.4-14.8)
[2017-04-21 18:35] LABS: ALANINE AMINOTRANSFERASE 19 U/L (12-78); ANION GAP 7 mmol/L (5-15); CHLORIDE 113 mmol/L (98-107); CREATININE 3.12 mg/dL (0.7-1.3)
[2017-04-21 18:38] LABS: ALKALINE PHOSPHATASE 66 U/L (45-117); BILIRUBIN,TOTAL 0.2 mg/dL (0.2-1.0); TOTAL PROTEIN 7.7 g/dL (6.4-8.2)
[2017-04-21] MEDS ORDERED: SODIUM CHLORIDE 0.9% 1,000 ML IV SCH (20:02)
[2017-04-21] MEDS ORDERED: POLYETHYLENE GLYCOL 17 GM PACKET PO PRN (20:30)
[2017-04-21] MEDS ORDERED: ONDANSETRON 2MG/ML, 2ML IVPush PRN (20:30)
[2017-04-21] MEDS ORDERED: hydrALAzine 20 MG/ML, 1ML IVPush PRN (20:30)
[2017-04-21] MEDS: LACTULOSE 10 GM/15 ML UDC PO SCH (20:43)
[2017-04-21] MEDS: OXYcodone IR 5MG TABLET PO PRN (20:50)
[2017-04-21 20:56] VITALS: BP 129/85
[2017-04-21] MEDS: GABAPENTIN 300 MG CAPSULE PO SCH (21:38)
[2017-04-21] MEDS: DOXYCYCLINE 100 MG in DEXTROSE 5% 250 ML IV SCH (21:38)
[2017-04-21] MEDS: SODIUM CHLORIDE 0.9% 1,000 ML IV SCH (21:39)
[2017-04-22 01:25] VITALS: BP 122/82
[2017-04-22] MEDS: OXYcodone IR 5MG TABLET PO PRN ×5 (01:44→20:56)
[2017-04-22] MEDS: ACETAMINOPHEN 325 MG TABLET PO PRN ×2 (01:44→07:20)
[2017-04-22] MEDS: GABAPENTIN 300 MG CAPSULE PO SCH ×4 (05:01→20:56)
[2017-04-22] MEDS: SODIUM CHLORIDE 0.9% 1,000 ML IV SCH (05:01)
[2017-04-22 06:13] LABS: BASOPHILS # (AUTO) 0.04 x10^3/uL (0-0.1); BASOPHILS % (AUTO) 1 % (0-1); EOSINOPHILS # (AUTO) 0.67 x10^3/uL (0-0.4); EOSINOPHILS % (AUTO) 11 % (1-7); LYMPHOCYTES # (AUTO) 1.22 x10^3/uL (1-3.4); LYMPHOCYTES % (AUTO) 19 % (22-44); MD NO; MEAN CORPUSCULAR HEMOGLOBIN 29.3 pg (27.5-34.5); MEAN CORPUSCULAR HGB CONC 33.3 g/dL (33.2-36.2); MEAN CORPUSCULAR VOLUME 87.9 fL (81-97); MEAN PLATELET VOLUME 7.6 fL (7.4-10.4); MONOCYTES # (AUTO) 0.96 x10^3/uL (0.2-0.8); MONOCYTES % (AUTO) 15 % (2-9); NEUTROPHILS # (AUTO) 3.51 x10^3/uL (1.8-6.8); NEUTROPHILS % (AUTO) 55 % (42-75); PLATELET COUNT 254 x10^3/uL (130-400); RED BLOOD COUNT 2.98 x10^6/uL (4.38-5.82); RED CELL DISTRIBUTION WIDTH 16.7 % (9.4-14.8)
[2017-04-22 06:23] LABS: CHLORIDE 112 mmol/L (98-107)
[2017-04-22 06:28] LABS: ANION GAP 7 mmol/L (5-15); CALCIUM 7.9 mg/dL (8.5-10.1)
[2017-04-22 07:15] VITALS: BP 109/68
[2017-04-22] MEDS: SODIUM BICARB 8.4%,50ML SYR. 75 MEQ in SODIUM CHLORIDE 0.45% 1,000 ML IV SCH ×2 (07:54→19:20)
[2017-04-22] MEDS: LACTULOSE 10 GM/15 ML UDC PO SCH ×2 (07:55→20:56)
[2017-04-22] MEDS: ENOXAPARIN 30 MG/0.3 ML SQ SCH (07:57)
[2017-04-22] MEDS: DOXYCYCLINE 100 MG in DEXTROSE 5% 250 ML IV SCH ×2 (08:51→21:10)
[2017-04-22] MEDS ORDERED: MAGNESIUM SULFATE PMX 2GM/50ML 50 ML IV ONE (11:00)
[2017-04-22 13:39] VITALS: BP 113/68
[2017-04-22] MEDS: HYDROmorphone 2 MG/ML, 1ML IVPush PRN (16:22)
[2017-04-22 20:11] VITALS: BP 126/72
[2017-04-23 01:02] VITALS: BP 121/78
[2017-04-23] MEDS: OXYcodone IR 5MG TABLET PO PRN ×3 (01:03→10:12)
[2017-04-23] MEDS: GABAPENTIN 300 MG CAPSULE PO SCH ×4 (05:21→22:05)
[2017-04-23 06:02] LABS: BASOPHILS # (AUTO) 0.03 x10^3/uL (0-0.1); BASOPHILS % (AUTO) 0 % (0-1); EOSINOPHILS # (AUTO) 0.88 x10^3/uL (0-0.4); EOSINOPHILS % (AUTO) 11 % (1-7); LYMPHOCYTES # (AUTO) 1.27 x10^3/uL (1-3.4); LYMPHOCYTES % (AUTO) 16 % (22-44); MD NO; MEAN CORPUSCULAR HGB CONC 33.3 g/dL (33.2-36.2); MEAN PLATELET VOLUME 7.4 fL (7.4-10.4); MONOCYTES # (AUTO) 0.84 x10^3/uL (0.2-0.8); MONOCYTES % (AUTO) 11 % (2-9); NEUTROPHILS # (AUTO) 4.73 x10^3/uL (1.8-6.8); NEUTROPHILS % (AUTO) 61 % (42-75); PLATELET COUNT 285 x10^3/uL (130-400); RED BLOOD COUNT 2.97 x10^6/uL (4.38-5.82); RED CELL DISTRIBUTION WIDTH 17.3 % (9.4-14.8)
[2017-04-23 06:14] LABS: ALBUMIN 2.2 g/dL (3.4-5.0); ANION GAP 7 mmol/L (5-15); CALCIUM 7.5 mg/dL (8.5-10.1); CHLORIDE 112 mmol/L (98-107)
[2017-04-23 06:20] LABS: % IRON SATURATION 8 % (20-55); ALANINE AMINOTRANSFERASE 11 U/L (12-78); ALKALINE PHOSPHATASE 48 U/L (45-117); BILIRUBIN,TOTAL 0.4 mg/dL (0.2-1.0); CREATININE 2.37 mg/dL (0.7-1.3); IRON LEVEL 13 mcg/dL (65-175); TOTAL IRON BINDING CAPACITY 156 mcg/dL (250-450); TOTAL PROTEIN 5.8 g/dL (6.4-8.2)
[2017-04-23] MEDS ORDERED: MAGNESIUM SULFATE PMX 2GM/50ML 50 ML IV ONE (07:00)
[2017-04-23] MEDS: SODIUM BICARB 8.4%,50ML SYR. 75 MEQ in SODIUM CHLORIDE 0.45% 1,000 ML IV SCH ×2 (07:00→16:31)
[2017-04-23 07:10] VITALS: BP 114/69
[2017-04-23] MEDS: DOXYCYCLINE 100 MG in DEXTROSE 5% 250 ML IV SCH ×2 (09:00→22:05)
[2017-04-23] MEDS: LACTULOSE 10 GM/15 ML UDC PO SCH ×2 (10:11→22:05)
[2017-04-23] MEDS: ENOXAPARIN 30 MG/0.3 ML SQ SCH (10:13)
[2017-04-23] MEDS: HYDROmorphone 2 MG/ML, 1ML IVPush PRN ×2 (11:26→14:50)
[2017-04-23 13:57] VITALS: BP 121/63
[2017-04-23] MEDS: MUPIROCIN OINT 2%, 22GM TP SCH (14:53)
[2017-04-23] MEDS: FERROUS SULFATE 325 MG TABLET PO SCH (16:32)
[2017-04-23 19:21] VITALS: BP 136/76
[2017-04-24 01:34] VITALS: BP 130/79
[2017-04-24] MEDS: OXYcodone IR 5MG TABLET PO PRN ×4 (01:39→22:14)
[2017-04-24] MEDS: ACETAMINOPHEN 325 MG TABLET PO PRN (01:39)
[2017-04-24 05:19] LABS: BASOPHILS # (AUTO) 0.04 x10^3/uL (0-0.1); BASOPHILS % (AUTO) 1 % (0-1); EOSINOPHILS # (AUTO) 0.66 x10^3/uL (0-0.4); EOSINOPHILS % (AUTO) 8 % (1-7); LYMPHOCYTES # (AUTO) 1.28 x10^3/uL (1-3.4); LYMPHOCYTES % (AUTO) 16 % (22-44); MD NO; MEAN CORPUSCULAR HEMOGLOBIN 29.1 pg (27.5-34.5); MEAN CORPUSCULAR HGB CONC 33.7 g/dL (33.2-36.2); MEAN CORPUSCULAR VOLUME 86.4 fL (81-97); MEAN PLATELET VOLUME 6.8 fL (7.4-10.4); MONOCYTES # (AUTO) 0.87 x10^3/uL (0.2-0.8); MONOCYTES % (AUTO) 11 % (2-9); NEUTROPHILS # (AUTO) 4.96 x10^3/uL (1.8-6.8); NEUTROPHILS % (AUTO) 64 % (42-75); PLATELET COUNT 327 x10^3/uL (130-400); RED BLOOD COUNT 3.12 x10^6/uL (4.38-5.82); RED CELL DISTRIBUTION WIDTH 17.1 % (9.4-14.8)
[2017-04-24 05:28] LABS: ALBUMIN 2.2 g/dL (3.4-5.0); ANION GAP 6 mmol/L (5-15); CALCIUM 7.9 mg/dL (8.5-10.1); CHLORIDE 109 mmol/L (98-107)
[2017-04-24 05:31] LABS: ALANINE AMINOTRANSFERASE 11 U/L (12-78); ALKALINE PHOSPHATASE 49 U/L (45-117); BILIRUBIN,TOTAL 0.5 mg/dL (0.2-1.0); CREATININE 2.22 mg/dL (0.7-1.3); TOTAL PROTEIN 6.2 g/dL (6.4-8.2)
[2017-04-24 06:42] VITALS: BP 113/66
[2017-04-24] MEDS: GABAPENTIN 300 MG CAPSULE PO SCH ×4 (06:48→22:14)
[2017-04-24] MEDS: MUPIROCIN OINT 2%, 22GM TP SCH (09:26)
[2017-04-24] MEDS: LACTULOSE 10 GM/15 ML UDC PO SCH ×2 (09:26→22:14)
[2017-04-24] MEDS: ENOXAPARIN 30 MG/0.3 ML SQ SCH (09:26)
[2017-04-24] MEDS: DOXYCYCLINE 100 MG in DEXTROSE 5% 250 ML IV SCH (10:44)
[2017-04-24 13:30] VITALS: BP 106/68
[2017-04-24] MEDS: FERROUS SULFATE 325 MG TABLET PO SCH (17:00)
[2017-04-24 18:40] VITALS: BP 105/62
[2017-04-24] MEDS: DOXYCYCLINE 100MG TABLET PO SCH (22:14)
[2017-04-25 02:51] VITALS: BP 135/77
[2017-04-25 05:52] LABS: ALBUMIN 2.3 g/dL (3.4-5.0); ANION GAP 6 mmol/L (5-15); CALCIUM 8.3 mg/dL (8.5-10.1); CHLORIDE 109 mmol/L (98-107)
[2017-04-25 05:55] LABS: ALANINE AMINOTRANSFERASE 14 U/L (12-78); ALKALINE PHOSPHATASE 52 U/L (45-117); BILIRUBIN,TOTAL 0.3 mg/dL (0.2-1.0); CREATININE 2.27 mg/dL (0.7-1.3); TOTAL PROTEIN 6.4 g/dL (6.4-8.2)
[2017-04-25] MEDS: OXYcodone IR 5MG TABLET PO PRN ×2 (08:19→17:18)
[2017-04-25] MEDS: LACTULOSE 10 GM/15 ML UDC PO SCH ×2 (08:19→21:16)
[2017-04-25] MEDS: GABAPENTIN 300 MG CAPSULE PO SCH ×4 (08:20→21:16)
[2017-04-25] MEDS: DOXYCYCLINE 100MG TABLET PO SCH ×2 (08:53→21:16)
[2017-04-25] MEDS: ENOXAPARIN 30 MG/0.3 ML SQ SCH (08:54)
[2017-04-25] MEDS ORDERED: MAGNESIUM SULFATE PMX 2GM/50ML 50 ML IV ONE (12:00)
[2017-04-25] MEDS ORDERED: POTASSIUM CHLORIDE 10 MEQ in SODIUM CHLORIDE 0.45% 1,000 ML IV SCH (14:00)
[2017-04-25 14:44] VITALS: BP 127/78
[2017-04-25] MEDS: MUPIROCIN OINT 2%, 22GM TP SCH (15:04)
[2017-04-25] MEDS: FERROUS SULFATE 325 MG TABLET PO SCH (17:18)
[2017-04-25] MEDS: SODIUM CHLORIDE 0.9% 500 ML IV SCH ×2 (17:19→21:17)
[2017-04-25 19:00] VITALS: BP 121/72
[2017-04-26 01:01] VITALS: BP 111/69
[2017-04-26] MEDS: SODIUM CHLORIDE 0.9% 500 ML IV SCH ×5 (04:02→18:35)
[2017-04-26 06:09] LABS: ANION GAP 6 mmol/L (5-15); CHLORIDE 109 mmol/L (98-107)
[2017-04-26 06:17] LABS: CALCIUM 8.9 mg/dL (8.5-10.1); CREATININE 2.16 mg/dL (0.7-1.3)
[2017-04-26] MEDS: GABAPENTIN 300 MG CAPSULE PO SCH ×4 (06:59→20:53)
[2017-04-26 08:00] VITALS: BP 107/66
[2017-04-26] MEDS: LACTULOSE 10 GM/15 ML UDC PO SCH ×2 (08:56→20:53)
[2017-04-26] MEDS: DOXYCYCLINE 100MG TABLET PO SCH ×2 (08:57→20:53)
[2017-04-26] MEDS: ENOXAPARIN 30 MG/0.3 ML SQ SCH (08:57)
[2017-04-26] MEDS: OXYcodone IR 5MG TABLET PO PRN ×2 (08:58→18:29)
[2017-04-26 14:30] VITALS: BP 147/83
[2017-04-26] MEDS: FERROUS SULFATE 325 MG TABLET PO SCH (18:29)
[2017-04-26] MEDS: MUPIROCIN OINT 2%, 22GM TP SCH (21:00)
[2017-04-26 21:58] VITALS: BP 100/68
[2017-04-27] MEDS: SODIUM CHLORIDE 0.9% 500 ML IV SCH ×7 (02:30→21:30)
[2017-04-27 04:30] VITALS: BP 102/67
[2017-04-27] MEDS: OXYcodone IR 5MG TABLET PO PRN ×2 (04:34→09:31)
[2017-04-27] MEDS: MUPIROCIN OINT 2%, 22GM TP SCH (04:45)
[2017-04-27] MEDS: GABAPENTIN 300 MG CAPSULE PO SCH ×4 (04:59→22:39)
[2017-04-27 06:14] LABS: CHLORIDE 108 mmol/L (98-107)
[2017-04-27 06:22] LABS: ALBUMIN 2.5 g/dL (3.4-5.0); ANION GAP 8 mmol/L (5-15); CALCIUM 8.7 mg/dL (8.5-10.1); CREATININE 2.25 mg/dL (0.7-1.3)
[2017-04-27 08:05] VITALS: BP 118/77
[2017-04-27] MEDS: DOXYCYCLINE 100MG TABLET PO SCH ×2 (09:28→22:39)
[2017-04-27] MEDS: LACTULOSE 10 GM/15 ML UDC PO SCH ×2 (09:28→21:00)
[2017-04-27] MEDS: ENOXAPARIN 30 MG/0.3 ML SQ SCH (09:29)
[2017-04-27 14:29] VITALS: BP 96/60
[2017-04-27] MEDS: FERROUS SULFATE 325 MG TABLET PO SCH (17:27)
[2017-04-27 18:46] VITALS: BP 108/52
[2017-04-28] MEDS: SODIUM CHLORIDE 0.9% 500 ML IV SCH ×6 (01:30→21:20)
[2017-04-28 02:00] VITALS: BP 144/89
[2017-04-28 05:31] LABS: CHLORIDE 113 mmol/L (98-107)
[2017-04-28 05:40] LABS: ALBUMIN 2.4 g/dL (3.4-5.0); ANION GAP 7 mmol/L (5-15); CALCIUM 8.6 mg/dL (8.5-10.1); CREATININE 2.21 mg/dL (0.7-1.3)
[2017-04-28 07:29] VITALS: BP 118/74
[2017-04-28] MEDS: LACTULOSE 10 GM/15 ML UDC PO SCH ×2 (09:00→21:20)
[2017-04-28] MEDS: DOXYCYCLINE 100MG TABLET PO SCH ×2 (10:05→21:20)
[2017-04-28] MEDS: ENOXAPARIN 30 MG/0.3 ML SQ SCH (10:06)
[2017-04-28] MEDS: MUPIROCIN OINT 2%, 22GM TP SCH (10:07)
[2017-04-28] MEDS: GABAPENTIN 300 MG CAPSULE PO SCH ×4 (10:07→21:20)
[2017-04-28] MEDS: OXYcodone IR 5MG TABLET PO PRN ×2 (10:15→19:57)
[2017-04-28 12:16] VITALS: BP 126/82
[2017-04-28] MEDS: FERROUS SULFATE 325 MG TABLET PO SCH (16:35)
[2017-04-28 19:11] VITALS: BP 109/72
[2017-04-29] MEDS: SODIUM CHLORIDE 0.9% 500 ML IV SCH ×6 (01:30→21:52)
[2017-04-29 02:32] VITALS: BP 133/78
[2017-04-29 05:34] LABS: CHLORIDE 113 mmol/L (98-107)
[2017-04-29 05:41] LABS: ANION GAP 7 mmol/L (5-15); CALCIUM 8.6 mg/dL (8.5-10.1); CREATININE 2.16 mg/dL (0.7-1.3)
[2017-04-29] MEDS: GABAPENTIN 300 MG CAPSULE PO SCH ×4 (06:40→20:42)
[2017-04-29] MEDS: OXYcodone IR 5MG TABLET PO PRN ×3 (06:40→20:45)
[2017-04-29 06:50] VITALS: BP 103/69
[2017-04-29] MEDS: LACTULOSE 10 GM/15 ML UDC PO SCH ×2 (09:00→20:43)
[2017-04-29] MEDS: MUPIROCIN OINT 2%, 22GM TP SCH (09:12)
[2017-04-29] MEDS: ENOXAPARIN 30 MG/0.3 ML SQ SCH (09:13)
[2017-04-29] MEDS: DOXYCYCLINE 100MG TABLET PO SCH ×2 (09:13→20:42)
[2017-04-29 13:05] VITALS: BP 134/78
[2017-04-29] MEDS: ERGOCALCIFEROL 50,000 UNIT CAPSULE PO SCH (16:03)
[2017-04-29] MEDS: IRON SUCROSE COMPLEX 100MG/5ML IV SCH (16:03)
[2017-04-29 19:08] VITALS: BP 149/87
[2017-04-30] MEDS: SODIUM CHLORIDE 0.9% 500 ML IV SCH ×3 (01:37→09:30)
[2017-04-30 01:49] VITALS: BP 125/85
[2017-04-30] MEDS: GABAPENTIN 300 MG CAPSULE PO SCH ×4 (05:44→21:00)
[2017-04-30] MEDS: OXYcodone IR 5MG TABLET PO PRN ×2 (05:44→15:38)
[2017-04-30] MEDS ORDERED: SODIUM CHLORIDE 0.9% 1,000 ML IV SCH (09:30)
[2017-04-30] MEDS: DOXYCYCLINE 100MG TABLET PO SCH ×2 (09:46→21:00)
[2017-04-30] MEDS: ENOXAPARIN 30 MG/0.3 ML SQ SCH (09:46)
[2017-04-30] MEDS: LACTULOSE 10 GM/15 ML UDC PO SCH ×2 (09:46→21:00)
[2017-04-30] MEDS: MUPIROCIN OINT 2%, 22GM TP SCH (10:04)
[2017-04-30 10:56] VITALS: BP 101/66
[2017-04-30 11:54] LABS: ANION GAP 9 mmol/L (5-15); CALCIUM 8.6 mg/dL (8.5-10.1); CHLORIDE 113 mmol/L (98-107)
[2017-04-30 11:55] LABS: CREATININE 2.01 mg/dL (0.7-1.3)
[2017-04-30] MEDS: IRON SUCROSE COMPLEX 100MG/5ML IV SCH (15:43)
[2017-04-30 15:51] VITALS: BP 117/67
[2017-04-30 20:44] VITALS: BP 102/65
[2017-04-30] MEDS: FAMOTIDINE 20 MG TABLET PO SCH (21:00)
[2017-05-01 01:58] VITALS: BP 116/76
[2017-05-01] MEDS: GABAPENTIN 300 MG CAPSULE PO SCH ×4 (06:39→21:40)
[2017-05-01 07:50] VITALS: BP 114/75
[2017-05-01] MEDS: LACTULOSE 10 GM/15 ML UDC PO SCH ×2 (09:00→21:39)
[2017-05-01] MEDS ORDERED: ENOXAPARIN 40 MG/0.4 ML SQ SCH (09:00)
[2017-05-01] MEDS: DOXYCYCLINE 100MG TABLET PO SCH ×2 (09:58→21:40)
[2017-05-01] MEDS: MUPIROCIN OINT 2%, 22GM TP SCH (09:59)
[2017-05-01 15:36] VITALS: BP 108/67
[2017-05-01] MEDS: IRON SUCROSE COMPLEX 100MG/5ML IV SCH (16:21)
[2017-05-01 19:13] VITALS: BP 138/87
[2017-05-01] MEDS: FAMOTIDINE 20 MG TABLET PO SCH (21:40)
[2017-05-01] MEDS: OXYcodone IR 5MG TABLET PO PRN (21:44)
[2017-05-02 01:01] VITALS: BP 99/65
[2017-05-02 06:05] LABS: ANION GAP 8 mmol/L (5-15); CALCIUM 8.6 mg/dL (8.5-10.1); CHLORIDE 109 mmol/L (98-107); CREATININE 2.24 mg/dL (0.7-1.3)
[2017-05-02] MEDS: GABAPENTIN 300 MG CAPSULE PO SCH ×4 (06:43→21:44)
[2017-05-02] MEDS: DOXYCYCLINE 100MG TABLET PO SCH ×2 (08:53→21:45)
[2017-05-02] MEDS: MUPIROCIN OINT 2%, 22GM TP SCH (08:53)
[2017-05-02] MEDS: SODIUM CHLORIDE 0.9% 1,000 ML IV SCH ×2 (08:53→21:44)
[2017-05-02] MEDS: OXYcodone IR 5MG TABLET PO PRN ×3 (08:53→21:52)
[2017-05-02] MEDS: LACTULOSE 10 GM/15 ML UDC PO SCH ×2 (08:56→21:44)
[2017-05-02 09:11] VITALS: BP 110/68
[2017-05-02 12:54] VITALS: BP 129/83
[2017-05-02] MEDS: IRON SUCROSE COMPLEX 100MG/5ML IV SCH (15:35)
[2017-05-02 18:44] VITALS: BP 115/75
[2017-05-02] MEDS: ENOXAPARIN 30 MG/0.3 ML SQ SCH (21:44)
[2017-05-02] MEDS: FAMOTIDINE 20 MG TABLET PO SCH (21:45)
[2017-05-03 00:29] VITALS: BP 111/72
[2017-05-03] MEDS: OXYcodone IR 5MG TABLET PO PRN ×3 (05:13→21:21)
[2017-05-03 05:42] LABS: ANION GAP 7 mmol/L (5-15); CALCIUM 8.3 mg/dL (8.5-10.1); CHLORIDE 114 mmol/L (98-107)
[2017-05-03 05:44] LABS: CREATININE 2.09 mg/dL (0.7-1.3)
[2017-05-03] MEDS: GABAPENTIN 300 MG CAPSULE PO SCH ×4 (06:31→21:20)
[2017-05-03 08:00] VITALS: BP 112/73
[2017-05-03] MEDS ORDERED: ARANESP 60 MCG/ML **ESRD SQ SCH ×2 (09:00→15:12)
[2017-05-03] MEDS: DOXYCYCLINE 100MG TABLET PO SCH ×2 (09:52→21:20)
[2017-05-03] MEDS: MUPIROCIN OINT 2%, 22GM TP SCH (09:52)
[2017-05-03] MEDS: LACTULOSE 10 GM/15 ML UDC PO SCH ×2 (09:52→21:20)
[2017-05-03] MEDS: SODIUM CHLORIDE 0.9% 1,000 ML IV SCH ×2 (09:52→21:21)
[2017-05-03 13:42] VITALS: BP 105/58
[2017-05-03] MEDS: IRON SUCROSE COMPLEX 100MG/5ML IV SCH (18:28)
[2017-05-03 20:55] VITALS: BP 109/69
[2017-05-03] MEDS: ENOXAPARIN 30 MG/0.3 ML SQ SCH (21:20)
[2017-05-03] MEDS: FAMOTIDINE 20 MG TABLET PO SCH (21:20)
[2017-05-04 02:04] VITALS: BP 111/66
[2017-05-04] MEDS: GABAPENTIN 300 MG CAPSULE PO SCH ×4 (06:37→21:39)
[2017-05-04 07:27] VITALS: BP 108/72
[2017-05-04] MEDS: SODIUM CHLORIDE 0.9% 1,000 ML IV SCH ×2 (09:37→23:50)
[2017-05-04] MEDS: OXYcodone IR 5MG TABLET PO PRN (09:37)
[2017-05-04] MEDS: LACTULOSE 10 GM/15 ML UDC PO SCH ×2 (09:37→21:00)
[2017-05-04] MEDS: DOXYCYCLINE 100MG TABLET PO SCH ×2 (09:37→21:39)
[2017-05-04] MEDS: MUPIROCIN OINT 2%, 22GM TP SCH (09:44)
[2017-05-04 14:26] VITALS: BP 101/66
[2017-05-04 20:50] VITALS: BP 120/82
[2017-05-04] MEDS: FAMOTIDINE 20 MG TABLET PO SCH (21:39)
[2017-05-04] MEDS: ENOXAPARIN 30 MG/0.3 ML SQ SCH (21:39)
[2017-05-05 01:45] VITALS: BP 126/81
[2017-05-05 05:38] LABS: CHLORIDE 115 mmol/L (98-107)
[2017-05-05 05:47] LABS: ALANINE AMINOTRANSFERASE 21 U/L (12-78); ALBUMIN 2.6 g/dL (3.4-5.0); ALKALINE PHOSPHATASE 67 U/L (45-117); ANION GAP 6 mmol/L (5-15); BILIRUBIN,TOTAL 0.5 mg/dL (0.2-1.0); CALCIUM 8.7 mg/dL (8.5-10.1); CREATININE 1.97 mg/dL (0.7-1.3); TOTAL PROTEIN 6.8 g/dL (6.4-8.2)
[2017-05-05] MEDS: GABAPENTIN 300 MG CAPSULE PO SCH ×4 (06:41→20:32)
[2017-05-05] MEDS: OXYcodone IR 5MG TABLET PO PRN ×2 (10:08→15:23)
[2017-05-05] MEDS: DOXYCYCLINE 100MG TABLET PO SCH ×2 (10:08→20:32)
[2017-05-05] MEDS: LACTULOSE 10 GM/15 ML UDC PO SCH ×2 (10:09→20:33)
[2017-05-05] MEDS: MUPIROCIN OINT 2%, 22GM TP SCH (10:09)
[2017-05-05 13:26] VITALS: BP 117/77
[2017-05-05] MEDS: SODIUM CHLORIDE 0.9% 1,000 ML IV SCH (13:52)
[2017-05-05 19:01] VITALS: BP 105/70
[2017-05-05] MEDS: FAMOTIDINE 20 MG TABLET PO SCH (20:32)
[2017-05-05] MEDS: ENOXAPARIN 40 MG/0.4 ML SQ SCH (20:32)
[2017-05-06 02:21] VITALS: BP 123/79
[2017-05-06 05:34] LABS: BASOPHILS # (AUTO) 0.11 x10^3/uL (0-0.1); BASOPHILS % (AUTO) 2 % (0-1); EOSINOPHILS # (AUTO) 0.38 x10^3/uL (0-0.4); EOSINOPHILS % (AUTO) 5 % (1-7); LYMPHOCYTES % (AUTO) 25 % (22-44); MD NO; MEAN CORPUSCULAR HEMOGLOBIN 29.1 pg (27.5-34.5); MEAN CORPUSCULAR HGB CONC 33.4 g/dL (33.2-36.2); MEAN CORPUSCULAR VOLUME 87.1 fL (81-97); MEAN PLATELET VOLUME 7.3 fL (7.4-10.4); MONOCYTES # (AUTO) 0.58 x10^3/uL (0.2-0.8); MONOCYTES % (AUTO) 8 % (2-9); NEUTROPHILS # (AUTO) 4.26 x10^3/uL (1.8-6.8); NEUTROPHILS % (AUTO) 60 % (42-75); PLATELET COUNT 431 x10^3/uL (130-400); RED BLOOD COUNT 3.26 x10^6/uL (4.38-5.82); RED CELL DISTRIBUTION WIDTH 17.5 % (9.4-14.8)
[2017-05-06 05:52] LABS: CHLORIDE 112 mmol/L (98-107)
[2017-05-06 06:02] LABS: ALANINE AMINOTRANSFERASE 17 U/L (12-78); ALBUMIN 2.5 g/dL (3.4-5.0); ALKALINE PHOSPHATASE 69 U/L (45-117); ANION GAP 5 mmol/L (5-15); BILIRUBIN,TOTAL 0.4 mg/dL (0.2-1.0); CALCIUM 8.7 mg/dL (8.5-10.1); CREATININE 2.04 mg/dL (0.7-1.3); TOTAL PROTEIN 6.7 g/dL (6.4-8.2)
[2017-05-06] MEDS: SODIUM CHLORIDE 0.9% 1,000 ML IV SCH (08:04)
[2017-05-06 10:10] VITALS: BP 112/70
[2017-05-06] MEDS: GABAPENTIN 300 MG CAPSULE PO SCH ×3 (11:16→20:56)
[2017-05-06] MEDS: DOXYCYCLINE 100MG TABLET PO SCH ×2 (11:16→20:56)
[2017-05-06] MEDS: OXYcodone IR 5MG TABLET PO PRN ×3 (11:17→20:56)
[2017-05-06] MEDS: ERGOCALCIFEROL 50,000 UNIT CAPSULE PO SCH (11:17)
[2017-05-06] MEDS: MUPIROCIN OINT 2%, 22GM TP SCH (11:17)
[2017-05-06] MEDS: LACTULOSE 10 GM/15 ML UDC PO SCH ×2 (11:18→20:58)
[2017-05-06 16:00] VITALS: BP 109/72
[2017-05-06 19:40] VITALS: BP 110/72
[2017-05-06] MEDS: ENOXAPARIN 40 MG/0.4 ML SQ SCH (20:56)
[2017-05-06] MEDS: FAMOTIDINE 20 MG TABLET PO SCH (20:56)
[2017-05-07] MEDS: OXYcodone IR 5MG TABLET PO PRN ×4 (01:41→21:08)
[2017-05-07 02:45] VITALS: BP 108/70
[2017-05-07 05:38] LABS: BASOPHILS # (AUTO) 0.12 x10^3/uL (0-0.1); BASOPHILS % (AUTO) 2 % (0-1); EOSINOPHILS % (AUTO) 8 % (1-7); LYMPHOCYTES # (AUTO) 1.86 x10^3/uL (1-3.4); LYMPHOCYTES % (AUTO) 29 % (22-44); MD NO; MEAN CORPUSCULAR HGB CONC 33.1 g/dL (33.2-36.2); MEAN CORPUSCULAR VOLUME 87.5 fL (81-97); MEAN PLATELET VOLUME 6.9 fL (7.4-10.4); MONOCYTES # (AUTO) 0.52 x10^3/uL (0.2-0.8); MONOCYTES % (AUTO) 8 % (2-9); NEUTROPHILS # (AUTO) 3.52 x10^3/uL (1.8-6.8); NEUTROPHILS % (AUTO) 54 % (42-75); PLATELET COUNT 447 x10^3/uL (130-400); RED BLOOD COUNT 3.32 x10^6/uL (4.38-5.82); RED CELL DISTRIBUTION WIDTH 17.3 % (9.4-14.8)
[2017-05-07 05:47] LABS: ALBUMIN 2.5 g/dL (3.4-5.0); ANION GAP 7 mmol/L (5-15); CALCIUM 8.7 mg/dL (8.5-10.1); CHLORIDE 110 mmol/L (98-107)
[2017-05-07 05:49] LABS: CREATININE 2.19 mg/dL (0.7-1.3)
[2017-05-07 07:15] VITALS: BP 105/68
[2017-05-07] MEDS: DOXYCYCLINE 100MG TABLET PO SCH ×2 (10:15→21:07)
[2017-05-07] MEDS: LACTULOSE 10 GM/15 ML UDC PO SCH ×2 (10:15→21:07)
[2017-05-07] MEDS: GABAPENTIN 300 MG CAPSULE PO SCH ×3 (10:15→21:07)
[2017-05-07] MEDS: MUPIROCIN OINT 2%, 22GM TP SCH (10:16)
[2017-05-07 13:30] VITALS: BP 117/85
[2017-05-07] MEDS: FAMOTIDINE 20 MG TABLET PO SCH (21:07)
[2017-05-07] MEDS: ENOXAPARIN 40 MG/0.4 ML SQ SCH (21:08)
[2017-05-07 21:44] VITALS: BP 96/63
[2017-05-08 04:10] VITALS: BP 106/66
[2017-05-08 05:56] LABS: BASOPHILS # (AUTO) 0.13 x10^3/uL (0-0.1); BASOPHILS % (AUTO) 2 % (0-1); EOSINOPHILS # (AUTO) 0.58 x10^3/uL (0-0.4); EOSINOPHILS % (AUTO) 8 % (1-7); LYMPHOCYTES % (AUTO) 30 % (22-44); MD NO; MEAN CORPUSCULAR HEMOGLOBIN 29.3 pg (27.5-34.5); MEAN CORPUSCULAR HGB CONC 33.7 g/dL (33.2-36.2); MEAN CORPUSCULAR VOLUME 87.1 fL (81-97); MONOCYTES # (AUTO) 0.61 x10^3/uL (0.2-0.8); MONOCYTES % (AUTO) 9 % (2-9); NEUTROPHILS # (AUTO) 3.53 x10^3/uL (1.8-6.8); NEUTROPHILS % (AUTO) 51 % (42-75); PLATELET COUNT 459 x10^3/uL (130-400); RED BLOOD COUNT 3.37 x10^6/uL (4.38-5.82); RED CELL DISTRIBUTION WIDTH 18.1 % (9.4-14.8)
[2017-05-08 06:12] LABS: ALBUMIN 2.7 g/dL (3.4-5.0); ANION GAP 7 mmol/L (5-15); CALCIUM 8.3 mg/dL (8.5-10.1); CHLORIDE 111 mmol/L (98-107)
[2017-05-08 06:13] LABS: CREATININE 2.13 mg/dL (0.7-1.3)
[2017-05-08 06:57] VITALS: BP 110/70
[2017-05-08] MEDS: GABAPENTIN 300 MG CAPSULE PO SCH ×3 (09:15→20:53)
[2017-05-08] MEDS: DOXYCYCLINE 100MG TABLET PO SCH (09:15)
[2017-05-08] MEDS: OXYcodone IR 5MG TABLET PO PRN ×3 (09:15→20:54)
[2017-05-08] MEDS: LACTULOSE 10 GM/15 ML UDC PO SCH ×2 (09:15→20:54)
[2017-05-08 12:57] VITALS: BP 116/79
[2017-05-08] MEDS: MUPIROCIN OINT 2%, 22GM TP SCH (15:51)
[2017-05-08 19:10] VITALS: BP 107/72
[2017-05-08] MEDS: FAMOTIDINE 20 MG TABLET PO SCH (20:53)
[2017-05-08] MEDS: ENOXAPARIN 40 MG/0.4 ML SQ SCH (20:54)
[2017-05-09 02:51] VITALS: BP 107/69
[2017-05-09 05:53] LABS: BASOPHILS # (AUTO) 0.07 x10^3/uL (0-0.1); BASOPHILS % (AUTO) 1 % (0-1); EOSINOPHILS % (AUTO) 9 % (1-7); LYMPHOCYTES # (AUTO) 2.08 x10^3/uL (1-3.4); LYMPHOCYTES % (AUTO) 31 % (22-44); MD NO; MEAN CORPUSCULAR HEMOGLOBIN 29.1 pg (27.5-34.5); MEAN CORPUSCULAR HGB CONC 33.3 g/dL (33.2-36.2); MEAN CORPUSCULAR VOLUME 87.4 fL (81-97); MEAN PLATELET VOLUME 7.1 fL (7.4-10.4); MONOCYTES # (AUTO) 0.57 x10^3/uL (0.2-0.8); MONOCYTES % (AUTO) 9 % (2-9); NEUTROPHILS # (AUTO) 3.41 x10^3/uL (1.8-6.8); NEUTROPHILS % (AUTO) 51 % (42-75); PLATELET COUNT 469 x10^3/uL (130-400); RED BLOOD COUNT 3.58 x10^6/uL (4.38-5.82); RED CELL DISTRIBUTION WIDTH 18.2 % (9.4-14.8)
[2017-05-09 06:03] LABS: ALBUMIN 2.7 g/dL (3.4-5.0); ANION GAP 7 mmol/L (5-15); CALCIUM 8.8 mg/dL (8.5-10.1); CHLORIDE 109 mmol/L (98-107)
[2017-05-09 06:04] LABS: CREATININE 2.02 mg/dL (0.7-1.3)
[2017-05-09 07:52] VITALS: BP 107/71
[2017-05-09] MEDS: OXYcodone IR 5MG TABLET PO PRN ×3 (09:14→21:12)
[2017-05-09] MEDS: LACTULOSE 10 GM/15 ML UDC PO SCH ×2 (09:14→21:12)
[2017-05-09] MEDS: GABAPENTIN 300 MG CAPSULE PO SCH ×3 (09:14→21:12)
[2017-05-09] MEDS: MUPIROCIN OINT 2%, 22GM TP SCH (09:15)
[2017-05-09 12:17] VITALS: BP 107/72
[2017-05-09] MEDS ORDERED: POLYETHYLENE GLYCOL 17 GM PACKET NG PRN (14:30)
[2017-05-09] MEDS: SENNA/DOCUSATE TABLET PO PRN (17:52)
[2017-05-09 20:51] VITALS: BP 103/68
[2017-05-09] MEDS: FAMOTIDINE 20 MG TABLET PO SCH (21:12)
[2017-05-09] MEDS: ENOXAPARIN 40 MG/0.4 ML SQ SCH (21:13)
[2017-05-10 02:04] VITALS: BP 99/64
[2017-05-10 05:41] LABS: BASOPHILS % (AUTO) 1 % (0-1); EOSINOPHILS # (AUTO) 0.61 x10^3/uL (0-0.4); EOSINOPHILS % (AUTO) 9 % (1-7); LYMPHOCYTES # (AUTO) 1.85 x10^3/uL (1-3.4); LYMPHOCYTES % (AUTO) 26 % (22-44); MD NO; MEAN CORPUSCULAR HGB CONC 33.1 g/dL (33.2-36.2); MEAN CORPUSCULAR VOLUME 87.8 fL (81-97); MEAN PLATELET VOLUME 6.9 fL (7.4-10.4); MONOCYTES # (AUTO) 0.69 x10^3/uL (0.2-0.8); MONOCYTES % (AUTO) 10 % (2-9); NEUTROPHILS # (AUTO) 3.79 x10^3/uL (1.8-6.8); NEUTROPHILS % (AUTO) 54 % (42-75); PLATELET COUNT 475 x10^3/uL (130-400); RED BLOOD COUNT 3.52 x10^6/uL (4.38-5.82); RED CELL DISTRIBUTION WIDTH 18.5 % (9.4-14.8)
[2017-05-10 06:57] VITALS: BP 106/70
[2017-05-10 07:13] LABS: ALBUMIN 2.8 g/dL (3.4-5.0); ANION GAP 10 mmol/L (5-15); CALCIUM 8.5 mg/dL (8.5-10.1); CHLORIDE 110 mmol/L (98-107); CREATININE 1.97 mg/dL (0.7-1.3)
[2017-05-10] MEDS: GABAPENTIN 300 MG CAPSULE PO SCH ×3 (10:27→21:37)
[2017-05-10] MEDS: LACTULOSE 10 GM/15 ML UDC PO SCH ×2 (10:27→21:37)
[2017-05-10] MEDS: MUPIROCIN OINT 2%, 22GM TP SCH (10:28)
[2017-05-10] MEDS: OXYcodone IR 5MG TABLET PO PRN ×3 (10:32→21:51)
[2017-05-10 13:21] VITALS: BP 102/75
[2017-05-10] MEDS ORDERED: METHYLNALTREXONE 12 MG/0.6 ML SQ ONE (18:26)
[2017-05-10 19:28] VITALS: BP 119/80
[2017-05-10] MEDS: ENOXAPARIN 40 MG/0.4 ML SQ SCH (21:37)
[2017-05-10] MEDS: FAMOTIDINE 20 MG TABLET PO SCH (21:37)
[2017-05-11 01:49] VITALS: BP 105/71
[2017-05-11 07:31] VITALS: BP 110/74
[2017-05-11] MEDS: GABAPENTIN 300 MG CAPSULE PO SCH ×3 (11:04→21:21)
[2017-05-11] MEDS: LACTULOSE 10 GM/15 ML UDC PO SCH ×2 (11:04→21:21)
[2017-05-11 16:30] VITALS: BP 112/70
[2017-05-11 19:06] VITALS: BP 109/72
[2017-05-11] MEDS: MUPIROCIN OINT 2%, 22GM TP SCH (21:21)
[2017-05-11] MEDS: FAMOTIDINE 20 MG TABLET PO SCH (21:21)
[2017-05-11] MEDS: ENOXAPARIN 40 MG/0.4 ML SQ SCH (21:22)
[2017-05-12 00:30] VITALS: BP 104/68
[2017-05-12 06:01] LABS: CHLORIDE 109 mmol/L (98-107)
[2017-05-12 06:03] LABS: MEAN CORPUSCULAR HEMOGLOBIN 29.1 pg (27.5-34.5); MEAN CORPUSCULAR HGB CONC 32.7 g/dL (33.2-36.2); MEAN CORPUSCULAR VOLUME 88.9 fL (81-97); MEAN PLATELET VOLUME 7.3 fL (7.4-10.4); PLATELET COUNT 402 x10^3/uL (130-400); RED BLOOD COUNT 3.73 x10^6/uL (4.38-5.82); RED CELL DISTRIBUTION WIDTH 19.5 % (9.4-14.8)
[2017-05-12 06:10] LABS: ALANINE AMINOTRANSFERASE 28 U/L (12-78); ALBUMIN 2.9 g/dL (3.4-5.0); ALKALINE PHOSPHATASE 78 U/L (45-117); ANION GAP 8 mmol/L (5-15); BILIRUBIN,TOTAL 0.3 mg/dL (0.2-1.0); CALCIUM 8.8 mg/dL (8.5-10.1); CREATININE 1.81 mg/dL (0.7-1.3); TOTAL PROTEIN 7.3 g/dL (6.4-8.2)
[2017-05-12 06:34] LABS: BASOPHILS # (AUTO) 0.08 x10^3/uL (0-0.1); BASOPHILS % (AUTO) 1 % (0-1); EOSINOPHILS # (AUTO) 0.52 x10^3/uL (0-0.4); EOSINOPHILS % (AUTO) 9 % (1-7); LYMPHOCYTES # (AUTO) 1.61 x10^3/uL (1-3.4); LYMPHOCYTES % (AUTO) 27 % (22-44); MD SCAN; MONOCYTES # (AUTO) 0.61 x10^3/uL (0.2-0.8); MONOCYTES % (AUTO) 10 % (2-9); NEUTROPHILS # (AUTO) 3.16 x10^3/uL (1.8-6.8); NEUTROPHILS % (AUTO) 53 % (42-75)
[2017-05-12 07:49] VITALS: BP 107/72
[2017-05-12] MEDS ORDERED: POLYETHYLENE GLYCOL 17 GM PACKET NG ONE (08:00)
[2017-05-12] MEDS: MUPIROCIN OINT 2%, 22GM TP SCH (09:00)
[2017-05-12] MEDS: GABAPENTIN 300 MG CAPSULE PO SCH ×3 (09:05→21:07)
[2017-05-12] MEDS: LACTULOSE 10 GM/15 ML UDC PO SCH ×2 (09:05→21:07)
[2017-05-12 13:59] VITALS: BP 105/72
[2017-05-12 19:09] VITALS: BP 116/75
[2017-05-12] MEDS: ENOXAPARIN 40 MG/0.4 ML SQ SCH (21:07)
[2017-05-12] MEDS: FAMOTIDINE 20 MG TABLET PO SCH (21:07)
[2017-05-13 04:00] VITALS: BP 101/69
[2017-05-13 08:36] VITALS: BP 115/79
[2017-05-13] MEDS: GABAPENTIN 300 MG CAPSULE PO SCH ×3 (08:44→21:31)
[2017-05-13] MEDS: LACTULOSE 10 GM/15 ML UDC PO SCH ×2 (08:44→21:31)
[2017-05-13] MEDS: MUPIROCIN OINT 2%, 22GM TP SCH (09:00)
[2017-05-13 13:01] VITALS: BP 116/79
[2017-05-13] MEDS: ERGOCALCIFEROL 50,000 UNIT CAPSULE PO SCH (15:55)
[2017-05-13 18:51] VITALS: BP 113/73
[2017-05-13] MEDS: FAMOTIDINE 20 MG TABLET PO SCH (21:31)
[2017-05-13] MEDS: ENOXAPARIN 40 MG/0.4 ML SQ SCH (21:31)
[2017-05-14 01:11] VITALS: BP 120/78
[2017-05-14 07:07] VITALS: BP 107/70
[2017-05-14] MEDS: LACTULOSE 10 GM/15 ML UDC PO SCH ×2 (08:27→22:14)
[2017-05-14] MEDS: GABAPENTIN 300 MG CAPSULE PO SCH ×3 (08:27→22:14)
[2017-05-14] MEDS: MUPIROCIN OINT 2%, 22GM TP SCH (08:27)
[2017-05-14 12:40] VITALS: BP 126/82
[2017-05-14 21:29] VITALS: BP 102/63
[2017-05-14] MEDS: FAMOTIDINE 20 MG TABLET PO SCH (22:14)
[2017-05-14] MEDS: ENOXAPARIN 40 MG/0.4 ML SQ SCH (22:14)
[2017-05-15 02:32] VITALS: BP 117/74
[2017-05-15 07:06] VITALS: BP 111/72
[2017-05-15] MEDS: LACTULOSE 10 GM/15 ML UDC PO SCH ×2 (10:41→21:25)
[2017-05-15] MEDS: MUPIROCIN OINT 2%, 22GM TP SCH (10:41)
[2017-05-15] MEDS: GABAPENTIN 300 MG CAPSULE PO SCH ×3 (10:41→21:24)
[2017-05-15] MEDS ORDERED: BISACODYL 10 MG SUPP PR PRN (11:30)
[2017-05-15 12:20] LABS: BASOPHILS # (AUTO) 0.06 x10^3/uL (0-0.1); BASOPHILS % (AUTO) 1 % (0-1); EOSINOPHILS # (AUTO) 0.41 x10^3/uL (0-0.4); EOSINOPHILS % (AUTO) 8 % (1-7); LYMPHOCYTES % (AUTO) 21 % (22-44); MD NO; MEAN CORPUSCULAR HEMOGLOBIN 29.2 pg (27.5-34.5); MEAN CORPUSCULAR VOLUME 88.5 fL (81-97); MONOCYTES # (AUTO) 0.46 x10^3/uL (0.2-0.8); MONOCYTES % (AUTO) 9 % (2-9); NEUTROPHILS # (AUTO) 3.25 x10^3/uL (1.8-6.8); NEUTROPHILS % (AUTO) 62 % (42-75); PLATELET COUNT 379 x10^3/uL (130-400)
[2017-05-15 12:30] LABS: ANION GAP 7 mmol/L (5-15); CALCIUM 8.4 mg/dL (8.5-10.1); CHLORIDE 108 mmol/L (98-107); CREATININE 1.56 mg/dL (0.7-1.3)
[2017-05-15 14:30] VITALS: BP 114/70
[2017-05-15] MEDS: SENNA/DOCUSATE TABLET PO PRN (17:00)
[2017-05-15] MEDS: ACETAMINOPHEN 325 MG TABLET PO PRN (17:00)
[2017-05-15 21:11] VITALS: BP 117/71
[2017-05-15] MEDS: FAMOTIDINE 20 MG TABLET PO SCH (21:24)
[2017-05-15] MEDS: ENOXAPARIN 40 MG/0.4 ML SQ SCH (21:25)
[2017-05-16 02:33] VITALS: BP 107/69
[2017-05-16 08:24] VITALS: BP 115/84
[2017-05-16] MEDS: MUPIROCIN OINT 2%, 22GM TP SCH (09:00)
[2017-05-16] MEDS ORDERED: ZOLPIDEM 5MG TABLET PO PRN (11:00)
[2017-05-16] MEDS: LACTULOSE 10 GM/15 ML UDC PO SCH ×2 (11:42→21:00)
[2017-05-16] MEDS: GABAPENTIN 400 MG CAPSULE PO SCH ×3 (11:42→21:31)
[2017-05-16] MEDS: SENNA/DOCUSATE TABLET PO SCH (11:42)
[2017-05-16] MEDS: FAMOTIDINE 20 MG TABLET PO SCH (11:43)
[2017-05-16 12:26] VITALS: BP 129/87
[2017-05-16 19:36] VITALS: BP 116/78
[2017-05-16] MEDS: ENOXAPARIN 40 MG/0.4 ML SQ SCH (21:31)
[2017-05-17 02:20] VITALS: BP 100/65
[2017-05-17 07:16] VITALS: BP 104/70
[2017-05-17] MEDS: SENNA/DOCUSATE TABLET PO SCH (09:00)
[2017-05-17] MEDS: LACTULOSE 10 GM/15 ML UDC PO SCH ×2 (09:00→21:00)
[2017-05-17] MEDS: GABAPENTIN 400 MG CAPSULE PO SCH ×3 (09:14→21:38)
[2017-05-17] MEDS: MUPIROCIN OINT 2%, 22GM TP SCH (09:15)
[2017-05-17 13:31] VITALS: BP 116/83
[2017-05-17 21:35] VITALS: BP 113/81
[2017-05-17] MEDS: FAMOTIDINE 20 MG TABLET PO SCH (21:38)
[2017-05-17] MEDS: ENOXAPARIN 40 MG/0.4 ML SQ SCH (21:38)
[2017-05-18 03:23] VITALS: BP 100/65
[2017-05-18 08:00] VITALS: BP 117/86
[2017-05-18] MEDS: LACTULOSE 10 GM/15 ML UDC PO SCH ×2 (09:00→20:37)
[2017-05-18] MEDS: SENNA/DOCUSATE TABLET PO SCH (09:00)
[2017-05-18] MEDS: OXYcodone IR 5MG TABLET PO PRN ×3 (10:35→21:08)
[2017-05-18] MEDS: GABAPENTIN 400 MG CAPSULE PO SCH ×3 (10:36→20:36)
[2017-05-18 13:52] VITALS: BP 102/73
[2017-05-18] MEDS: MUPIROCIN OINT 2%, 22GM TP SCH (14:08)
[2017-05-18 20:25] VITALS: BP 116/80
[2017-05-18] MEDS: FAMOTIDINE 20 MG TABLET PO SCH (20:36)
[2017-05-18] MEDS: ENOXAPARIN 40 MG/0.4 ML SQ SCH (20:37)
[2017-05-19 03:00] VITALS: BP 99/66
[2017-05-19] MEDS: OXYcodone IR 5MG TABLET PO PRN ×3 (05:29→21:42)
[2017-05-19 06:03] LABS: CREATININE 1.66 mg/dL (0.7-1.3)
[2017-05-19 07:54] VITALS: BP 102/69
[2017-05-19] MEDS: SENNA/DOCUSATE TABLET PO SCH (09:00)
[2017-05-19] MEDS: LACTULOSE 10 GM/15 ML UDC PO SCH ×2 (09:00→20:41)
[2017-05-19] MEDS: MUPIROCIN OINT 2%, 22GM TP SCH (10:12)
[2017-05-19] MEDS: GABAPENTIN 400 MG CAPSULE PO SCH ×3 (10:12→20:41)
[2017-05-19] MEDS ORDERED: OXYcodone IR 5MG TABLET PO ONE (13:30)
[2017-05-19 13:59] VITALS: BP 109/74
[2017-05-19 19:32] VITALS: BP 110/76
[2017-05-19] MEDS: ENOXAPARIN 40 MG/0.4 ML SQ SCH (20:41)
[2017-05-19] MEDS: FAMOTIDINE 20 MG TABLET PO SCH (20:41)
[2017-05-20 01:22] VITALS: BP 106/71
[2017-05-20 08:19] VITALS: BP 98/66
[2017-05-20] MEDS: LACTULOSE 10 GM/15 ML UDC PO SCH ×2 (09:00→21:22)
[2017-05-20] MEDS: GABAPENTIN 400 MG CAPSULE PO SCH ×3 (09:40→21:22)
[2017-05-20] MEDS: MUPIROCIN OINT 2%, 22GM TP SCH (09:41)
[2017-05-20] MEDS: OXYcodone IR 5MG TABLET PO PRN ×2 (09:41→18:00)
[2017-05-20] MEDS: SENNA/DOCUSATE TABLET PO SCH (09:41)
[2017-05-20 14:00] VITALS: BP 108/75
[2017-05-20] MEDS: ERGOCALCIFEROL 50,000 UNIT CAPSULE PO SCH (16:27)
[2017-05-20 20:21] VITALS: BP 115/70
[2017-05-20] MEDS: FAMOTIDINE 20 MG TABLET PO SCH (21:22)
[2017-05-20] MEDS: ENOXAPARIN 40 MG/0.4 ML SQ SCH (21:22)
[2017-05-21 03:33] VITALS: BP 118/72
[2017-05-21 08:08] VITALS: BP 119/72
[2017-05-21] MEDS: GABAPENTIN 400 MG CAPSULE PO SCH ×3 (10:25→21:27)
[2017-05-21] MEDS: SENNA/DOCUSATE TABLET PO SCH (10:25)
[2017-05-21] MEDS: LACTULOSE 10 GM/15 ML UDC PO SCH ×2 (10:25→21:27)
[2017-05-21] MEDS: MUPIROCIN OINT 2%, 22GM TP SCH (10:25)
[2017-05-21] MEDS: OXYcodone IR 5MG TABLET PO PRN ×2 (10:26→18:38)
[2017-05-21 13:33] VITALS: BP 103/71
[2017-05-21 20:02] VITALS: BP 133/80
[2017-05-21] MEDS: FAMOTIDINE 20 MG TABLET PO SCH (21:27)
[2017-05-21] MEDS: ENOXAPARIN 40 MG/0.4 ML SQ SCH (21:27)
[2017-05-22 03:03] VITALS: BP 104/65
[2017-05-22 08:10] VITALS: BP 125/86
[2017-05-22] MEDS: OXYcodone IR 5MG TABLET PO PRN (09:12)
[2017-05-22] MEDS: GABAPENTIN 400 MG CAPSULE PO SCH ×3 (10:35→20:38)
[2017-05-22] MEDS: LACTULOSE 10 GM/15 ML UDC PO SCH ×2 (10:35→20:38)
[2017-05-22] MEDS: SENNA/DOCUSATE TABLET PO SCH (10:35)
[2017-05-22 13:37] VITALS: BP 114/80
[2017-05-22] MEDS: MUPIROCIN OINT 2%, 22GM TP SCH (15:48)
[2017-05-22 19:42] VITALS: BP 115/82
[2017-05-22] MEDS: FAMOTIDINE 20 MG TABLET PO SCH (20:38)
[2017-05-22] MEDS: ENOXAPARIN 40 MG/0.4 ML SQ SCH (20:38)
[2017-05-23 02:25] VITALS: BP 116/67
[2017-05-23 08:08] VITALS: BP 100/64
[2017-05-23] MEDS: LACTULOSE 10 GM/15 ML UDC PO SCH ×2 (10:52→20:39)
[2017-05-23] MEDS: GABAPENTIN 400 MG CAPSULE PO SCH ×3 (10:52→20:39)
[2017-05-23] MEDS: SENNA/DOCUSATE TABLET PO SCH (10:52)
[2017-05-23] MEDS: OXYcodone IR 5MG TABLET PO PRN (10:57)
[2017-05-23 13:46] VITALS: BP 114/78
[2017-05-23] MEDS: MUPIROCIN OINT 2%, 22GM TP SCH (14:11)
[2017-05-23 19:59] VITALS: BP 115/79
[2017-05-23] MEDS: FAMOTIDINE 20 MG TABLET PO SCH (20:39)
[2017-05-23] MEDS: ENOXAPARIN 40 MG/0.4 ML SQ SCH (20:40)
[2017-05-24 00:55] VITALS: BP 119/80
[2017-05-24 08:39] VITALS: BP 117/73
[2017-05-24] MEDS: OXYcodone IR 5MG TABLET PO PRN ×2 (08:45→17:46)
[2017-05-24] MEDS: GABAPENTIN 400 MG CAPSULE PO SCH ×3 (08:45→21:30)
[2017-05-24] MEDS: SENNA/DOCUSATE TABLET PO SCH (08:45)
[2017-05-24] MEDS: LACTULOSE 10 GM/15 ML UDC PO SCH ×2 (08:45→21:30)
[2017-05-24 15:04] VITALS: BP 104/72
[2017-05-24] MEDS: MUPIROCIN OINT 2%, 22GM TP SCH (16:36)
[2017-05-24 21:15] VITALS: BP 111/78
[2017-05-24] MEDS: ENOXAPARIN 40 MG/0.4 ML SQ SCH (21:30)
[2017-05-24] MEDS: FAMOTIDINE 20 MG TABLET PO SCH (21:30)
[2017-05-25 02:30] VITALS: BP 114/73
[2017-05-25] MEDS: OXYcodone IR 5MG TABLET PO PRN ×3 (02:57→21:53)
[2017-05-25 06:01] LABS: CHLORIDE 110 mmol/L (98-107)
[2017-05-25 06:05] LABS: ANION GAP 7 mmol/L (5-15); CALCIUM 8.7 mg/dL (8.5-10.1); CREATININE 1.57 mg/dL (0.7-1.3)
[2017-05-25 11:06] VITALS: BP 111/73
[2017-05-25] MEDS: GABAPENTIN 400 MG CAPSULE PO SCH ×3 (11:08→21:53)
[2017-05-25] MEDS: LACTULOSE 10 GM/15 ML UDC PO SCH ×2 (11:08→21:53)
[2017-05-25] MEDS: SENNA/DOCUSATE TABLET PO SCH (11:09)
[2017-05-25 14:37] VITALS: BP 114/74
[2017-05-25] MEDS: MUPIROCIN OINT 2%, 22GM TP SCH (17:49)
[2017-05-25 21:39] VITALS: BP 110/78
[2017-05-25] MEDS: ENOXAPARIN 40 MG/0.4 ML SQ SCH (21:53)
[2017-05-25] MEDS: FAMOTIDINE 20 MG TABLET PO SCH (21:53)
[2017-05-26 01:34] VITALS: BP 116/71
[2017-05-26 07:49] VITALS: BP 119/78
[2017-05-26] MEDS: GABAPENTIN 400 MG CAPSULE PO SCH ×2 (10:19→16:08)
[2017-05-26] MEDS: LACTULOSE 10 GM/15 ML UDC PO SCH (10:19)
[2017-05-26] MEDS: MUPIROCIN OINT 2%, 22GM TP SCH (10:19)
[2017-05-26] MEDS: SENNA/DOCUSATE TABLET PO SCH (10:19)
[2017-05-26] MEDS: OXYcodone IR 5MG TABLET PO PRN (13:37)
[2017-05-26 16:07] VITALS: BP 125/86
== END 2017-05-26 18:50 | disposition home or self-care (01) | DRG 871 ==
LOC: ED 17:38 → EDIP 19:21 → 4NOR 20:37 → 3NE 05-07 17:56
PROVIDERS: ADMIT Hospitalist; ATTEND Internal Medicine
DX: A41.9 Sepsis, unspecified organism (principal); N17.0 Acute kidney failure with tubular necrosis; E87.2 Acidosis; L03.116 Cellulitis of left lower limb; E44.0 Moderate protein-calorie malnutrition; M86.9 Osteomyelitis, unspecified; E83.42 Hypomagnesemia; G62.9 Polyneuropathy, unspecified; N18.3 Chronic kidney disease, stage 3 (moderate); D63.8 Anemia in other chronic diseases classified elsewhere; B95.62 Methicillin resistant Staphylococcus aureus infection as the cause of diseases classified elsewhere; D50.9 Iron deficiency anemia, unspecified; E86.9 Volume depletion, unspecified; G47.00 Insomnia, unspecified; I12.9 Hypertensive chronic kidney disease with stage 1 through stage 4 chronic kidney disease, or unspecified chronic kidney disease; I73.9 Peripheral vascular disease, unspecified; I77.1 Stricture of artery; S81.802A Unspecified open wound, left lower leg, initial encounter; J44.9 Chronic obstructive pulmonary disease, unspecified; K59.00 Constipation, unspecified; L97.529 Non-pressure chronic ulcer of other part of left foot with unspecified severity; X58.XXXA Exposure to other specified factors, initial encounter; Z59.0 Homelessness; Z72.0 Tobacco use; Z78.9 Other specified health status; Z86.14 Personal history of Methicillin resistant Staphylococcus aureus infection; Y93.89 Activity, other specified; Y92.89 Other specified places as the place of occurrence of the external cause; Y99.8 Other external cause status
CPT/HCPCS: 36415; 76770; 80048; 80053; 80069; 82565; 82728; 83540; 83550; 83735; 84100; 84550; 85018; 85025; 85049; 87040; 93922; 96361; 96365; 96366; 96375; 96376; J0882; J1170; J1650; J1756; J2405; J3370; J7060; J3475; J7030; J7040; J7050

== ENCOUNTER 2019-04-12 14:24 | Emergency (ER) | payer MEDICARE ==
[~2019-04-12] VITALS: Ht 185.4 cm; Wt 70.0 kg
[~2019-04-12 14:24] MED LIST changes: +AMOX1TAB64 PO; -BISA10SU2 PR; +BISA10SU4 PR; +DIPH25CA61 PO; -HEPA500041 SQ; +LINE600T12 PO; +NICO-486 TD; +OXYC1TAB7 PO; +SENN-193 PO; +[UNRECOGNIZED DRUG - CODE] SQ
--- NOTE | 2019-04-12 14:42 | NUR ---
JAMES. REPORT RECEIVED FROM EMS. PT TRANSFFERED FROM [facility]. PT C/O LEFT FOOT OPEN WOUND WITH PAIN/DRAINAGE X A FEW MONTHS. PT DENIES ANY OTHER SX. PT'S AOX4. RESPS EVEN AND UNLABORED. BP/SPO2 MONITORS IN PLACE. CALL LIGHT WITHIN REACH.
[2019-04-12] MEDS ORDERED: MORPHINE SULFATE 4 MG/ML, 1ML ONE ×2 (14:58→15:12)
[2019-04-12] MEDS: MORPHINE SULFATE 4 MG/ML, 1ML IV PRN ×2 (15:00→15:15)
--- NOTE | 2019-04-12 15:03 | NUR ---
XRAY AT BEDSIDE AT THIS TIME.
--- NOTE | 2019-04-12 15:03 | NUR ---
PT MEDICATED PER EMAR. PT TOLERATED WELL.
[2019-04-12 15:17] LABS: BASOPHILS # (AUTO) 0.02 x10^3/uL (0-0.1); BASOPHILS % (AUTO) 0 % (0-1); EOSINOPHILS # (AUTO) 0.34 x10^3/uL (0-0.4); EOSINOPHILS % (AUTO) 4 % (1-7); LYMPHOCYTES # (AUTO) 0.78 x10^3/uL (1-3.4); LYMPHOCYTES % (AUTO) 9 % (22-44); MD NO; MEAN CORPUSCULAR HEMOGLOBIN 29.9 pg (27.5-34.5); MEAN CORPUSCULAR HGB CONC 32.4 g/dL (33.2-36.2); MEAN CORPUSCULAR VOLUME 92.4 fL (81-97); MEAN PLATELET VOLUME 6.5 fL (7.4-10.4); MONOCYTES # (AUTO) 0.62 x10^3/uL (0.2-0.8); MONOCYTES % (AUTO) 7 % (2-9); NEUTROPHILS % (AUTO) 79 % (42-75); PLATELET COUNT 447 x10^3/uL (130-400); RED BLOOD COUNT 4.56 x10^6/uL (4.38-5.82)
--- NOTE | 2019-04-12 15:19 | NUR ---
BREAK RN: REASSESSED PAIN, PATIENT REPEATEDLY STATES "IT'S NOT WORKING, SOMEBODY HELP ME." PATIENT GIVEN SECOND DOSE OF MORPHINE.
--- NOTE | 2019-04-12 15:22 | NUR ---
PATIENT CONTINUES TO SCREAM AND YELL "SOMEONE HELP ME, IT'S NOT WORKING" DESPITE MEDICATION. MD NOTIFIED.
--- NOTE | 2019-04-12 15:24 | NUR ---
BREAK RN: PT YELLED OUT FOR MD DISCUSS AT LENGTH WITH PT HAS RECEIVED MULTIPLE AMOUNTS OF NARCOTICS FROM [facility], [facility] AND THIS FACILITY. DISCUSSED WITH DR. MOCTEZUMA, NO FURTHER ORDERS AT THIS TIME. PT CONTINOUS TO CRY AND MOAN. URINE GIVEN PER REQUEST
--- NOTE | 2019-04-12 15:30 | NUR ---
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
[2019-04-12 15:31] LABS: ALBUMIN 3.6 g/dL (3.4-5.0); ANION GAP 3 mmol/L (5-15); CALCIUM 9.4 mg/dL (8.5-10.1); CHLORIDE 113 mmol/L (98-107)
[2019-04-12 15:34] LABS: CREATININE 1.38 mg/dL (0.7-1.3)
[2019-04-12 15:47] VITALS: BP 130/88
[2019-04-12] MEDS ORDERED: KETOROLAC 30 MG/1 ML IVPush ONE (16:00)
--- NOTE | 2019-04-12 16:05 | NUR ---
DRESSING APPLIED AT THIS TIME. PT TOLERATED WELL.
--- NOTE | 2019-04-12 16:06 | NUR ---
PT REQUESTING PAIN MED AT THIS TIME. EDMD NOTIFIED.
--- NOTE | 2019-04-12 16:20 | NUR ---
PT REFUSED TORADOL AT THIS TIME. PT STATES "DOCTOR SAID NO MORE PAIN MEDS AND DISCHARGE." PT IS CHANGING AT THIS TIME.
--- NOTE | 2019-04-12 16:41 | NUR ---
PT REFUSED LAB/AMA PAPER. PT GIVEN DC PAPER WORK. PT AMB WITH CHUCK TO [facility]. TAXI VOUCHER GIVEN AT [facility].
== END 2019-04-12 16:45 | disposition left against medical advice (07) ==
LOC: ED 16:05
DX: I70.245 Atherosclerosis of native arteries of left leg with ulceration of other part of foot (principal); E87.5 Hyperkalemia; I10 Essential (primary) hypertension; J44.9 Chronic obstructive pulmonary disease, unspecified; F17.200 Nicotine dependence, unspecified, uncomplicated
CPT/HCPCS: 36415; 73630; 80048; 82040; 85025; 85651; 96374; 99284; J2270

== ENCOUNTER 2019-04-16 16:45 | Inpatient (IN) | payer MEDICARE ==
[~2019-04-16] VITALS: Ht 185.4 cm; Wt 74.8 kg
--- NOTE | 2019-04-16 16:58 | NUR ---
DANIELLE MARIN FROM [facility]. PT HAS LEFT LOWER FOOT ULCER THAT IS POSSIBLY INFECTED. CONNECTED TO MONITORING. CALL LIGHT IN REACH. MD AT BEDSIDE, AWAITING ORDERS AT THIS TIME.
--- NOTE | 2019-04-16 17:24 | NUR ---
LAB AT BEDSIDE. 2 SETS BLOOD CX DRAWN.
[2019-04-16] MEDS ORDERED: CEFTRIAXONE PMX 1GM/50ML 50 ML IVPB ONE (17:30)
[2019-04-16 17:44] LABS: BASOPHILS # (AUTO) 0.07 x10^3/uL (0-0.1); BASOPHILS % (AUTO) 1 % (0-1); EOSINOPHILS % (AUTO) 4 % (1-7); LYMPHOCYTES % (AUTO) 9 % (22-44); MD NO; MEAN CORPUSCULAR HEMOGLOBIN 29.9 pg (27.5-34.5); MEAN CORPUSCULAR HGB CONC 32.4 g/dL (33.2-36.2); MEAN CORPUSCULAR VOLUME 92.1 fL (81-97); MEAN PLATELET VOLUME 6.8 fL (7.4-10.4); MONOCYTES # (AUTO) 0.79 x10^3/uL (0.2-0.8); MONOCYTES % (AUTO) 7 % (2-9); NEUTROPHILS # (AUTO) 9.03 x10^3/uL (1.8-6.8); NEUTROPHILS % (AUTO) 80 % (42-75); PLATELET COUNT 463 x10^3/uL (130-400); RED BLOOD COUNT 4.38 x10^6/uL (4.38-5.82); RED CELL DISTRIBUTION WIDTH 16.6 % (9.4-14.8)
[2019-04-16 17:46] LABS: ALBUMIN 3.3 g/dL (3.4-5.0); ANION GAP 5 mmol/L (5-15); CALCIUM 9.1 mg/dL (8.5-10.1); CHLORIDE 107 mmol/L (98-107); CREATININE 1.35 mg/dL (0.7-1.3)
[2019-04-16] MEDS ORDERED: CEFTRIAXONE PMX 1GM/50ML 50 ML ONE (18:00)
[2019-04-16] MEDS ORDERED: SODIUM CHLORIDE FLUSH 10ML SYR IVF ONE (18:00)
--- NOTE | 2019-04-16 18:06 | NUR ---
IV START. ABX ADMIN PER JUL.
[2019-04-16 18:18] LABS: MICROSCOPIC NOT IND
[2019-04-16 18:21] LABS: CULTURE INDICATED? NO
--- NOTE | 2019-04-16 18:49 | NUR ---
PT RESTING ON GURNEY. VILLATORO
--- NOTE | 2019-04-16 19:01 | NUR ---
ALL RESULTS ARE BACK AT THIS TIME. CHART UP FOR RECHECK.
[2019-04-16] MEDS ORDERED: FURO40TA6 PO (19:56)
[2019-04-16] MEDS ORDERED: POTASSIUM PO (19:56)
--- NOTE | 2019-04-16 19:58 | NUR ---
PT REFUSES TO LET THIS NURSE FINISH CLEANING AND DRESSING HIS WOUNDS.
[2019-04-16] MEDS ORDERED: SODIUM CHLORIDE FLUSH 10ML SYR IVF PRN (20:00)
--- NOTE | 2019-04-16 20:12 | NUR ---
REPORT GIVEN TO HENOK HOPKINS. HOSPITALIST AT BEDSIDE.
[2019-04-16] MEDS ORDERED: hydrALAzine 20 MG/ML, 1ML IVPush PRN (21:00)
[2019-04-16] MEDS ORDERED: ONDANSETRON 2MG/ML, 2ML IVPush PRN (21:00)
[2019-04-16] MEDS ORDERED: ACETAMINOPHEN 325 MG TABLET PO PRN (21:00)
[2019-04-16] MEDS ORDERED: VANCOMYCIN PER PHARMACY MC PRN (21:00)
[2019-04-16] MEDS ORDERED: PHARMACY MAY ADJ FOR RENAL FX MC PRN (21:00)
[2019-04-16] MEDS ORDERED: GABAPENTIN 300 MG CAPSULE ONE (21:11)
[2019-04-16] MEDS ORDERED: HEPARIN 5,000 UNITS/ML, 1ML ONE (21:12)
[2019-04-16] MEDS ORDERED: OXYcodone/APAP 5/325MG TABLET ONE (21:12)
[2019-04-16] MEDS: GABAPENTIN 300 MG CAPSULE PO SCH (21:15)
[2019-04-16] MEDS: OXYcodone/APAP 5/325MG TABLET PO PRN ×2 (21:17→21:27)
[2019-04-16] MEDS: HEPARIN 5,000 UNITS/ML, 1ML SQ SCH (21:17)
[2019-04-16] MEDS ORDERED: PHARMACOKINETIC MONITORING MC PRN (21:30)
[2019-04-16] MEDS ORDERED: PHARMACOKINETIC CONSULTATION MC ONE (21:30)
[2019-04-16] MEDS: AMPICILLIN/SULBACTAM 3 GM in SODIUM CHLORIDE 0.9% 100 ML IV SCH (22:01)
[2019-04-16] MEDS: VANCOMYCIN 1,400 MG in SODIUM CHLORIDE 0.9% 250 ML IV SCH (22:30)
[2019-04-16 22:32] VITALS: BP 144/98
[2019-04-16 22:44] LABS: HCT (SEDRATE) 39.3 % (39.2-51.8)
[2019-04-17 00:13] VITALS: BP 118/85
[2019-04-17] MEDS ORDERED: ALBUTEROL SULFATE 2.5 MG/3 ML NPPB PRN (01:00)
[2019-04-17] MEDS: OXYcodone/APAP 5/325MG TABLET PO PRN ×5 (01:59→21:30)
[2019-04-17] MEDS: HEPARIN 5,000 UNITS/ML, 1ML SQ SCH ×2 (04:39→16:00)
[2019-04-17 04:40] LABS: CHLORIDE 111 mmol/L (98-107)
[2019-04-17] MEDS: morphine SULFATE 10 MG/ML, 1ML IVPush PRN ×3 (04:40→09:27)
[2019-04-17 04:42] LABS: BASOPHILS # (AUTO) 0.05 x10^3/uL (0-0.1); BASOPHILS % (AUTO) 1 % (0-1); EOSINOPHILS # (AUTO) 0.43 x10^3/uL (0-0.4); EOSINOPHILS % (AUTO) 5 % (1-7); LYMPHOCYTES # (AUTO) 1.14 x10^3/uL (1-3.4); LYMPHOCYTES % (AUTO) 14 % (22-44); MD NO; MEAN CORPUSCULAR HEMOGLOBIN 29.7 pg (27.5-34.5); MEAN CORPUSCULAR HGB CONC 32.4 g/dL (33.2-36.2); MEAN CORPUSCULAR VOLUME 91.9 fL (81-97); MEAN PLATELET VOLUME 7.2 fL (7.4-10.4); MONOCYTES # (AUTO) 0.89 x10^3/uL (0.2-0.8); MONOCYTES % (AUTO) 11 % (2-9); NEUTROPHILS # (AUTO) 5.55 x10^3/uL (1.8-6.8); NEUTROPHILS % (AUTO) 69 % (42-75); PLATELET COUNT 370 x10^3/uL (130-400); RED BLOOD COUNT 3.95 x10^6/uL (4.38-5.82); RED CELL DISTRIBUTION WIDTH 16.3 % (9.4-14.8)
[2019-04-17] MEDS: AMPICILLIN/SULBACTAM 3 GM in SODIUM CHLORIDE 0.9% 100 ML IV SCH ×4 (04:45→22:48)
[2019-04-17 04:48] LABS: ANION GAP 6 mmol/L (5-15); CALCIUM 8.3 mg/dL (8.5-10.1); CHOL/HDL RATIO 4.3; CHOLESTEROL, TOTAL 155 mg/dL (140-239); CREATININE 1.09 mg/dL (0.7-1.3); HDL CHOL % 23 % (26-37); HDL CHOLESTEROL (DIRECT) 36 mg/dL (40-60); LDL CHOLESTEROL,CALCULATED 92 mg/dL (54-169); LDL/HDL RATIO 2.6 (0.5-3.0); TRIGLYCERIDES 135 mg/dL (50-200); VLDL CHOLESTEROL 27 mg/dL (0-25)
[2019-04-17 06:42] VITALS: BP 119/80
[2019-04-17] MEDS: NICOTINE 14MG/24 HR PATCH.TD24 TD SCH (09:26)
[2019-04-17] MEDS: GABAPENTIN 300 MG CAPSULE PO SCH ×3 (09:27→21:11)
[2019-04-17] MEDS ORDERED: GADOTERATE 7.5 MMOL/15 ML SYR ONE (11:04)
[2019-04-17 13:27] VITALS: BP 124/90
[2019-04-17] MEDS: DIPHENHYDRAMINE 25 MG CAPSULE PO PRN ×2 (15:59→21:59)
[2019-04-17] MEDS ORDERED: HYDROCORTISONE CRM 1%, 30GM TP PRN (16:00)
[2019-04-17 19:50] VITALS: BP 127/76
[2019-04-17] MEDS: FUROSEMIDE 20 MG/2 ML IV SCH (21:11)
[2019-04-17] MEDS: VANCOMYCIN 1,400 MG in SODIUM CHLORIDE 0.9% 250 ML IV SCH (21:31)
[2019-04-18] MEDS: HEPARIN 5,000 UNITS/ML, 1ML SQ SCH ×3 (00:07→15:37)
[2019-04-18 02:28] VITALS: BP 130/72
[2019-04-18] MEDS: AMPICILLIN/SULBACTAM 3 GM in SODIUM CHLORIDE 0.9% 100 ML IV SCH ×4 (03:53→23:23)
[2019-04-18] MEDS: OXYcodone/APAP 5/325MG TABLET PO PRN ×4 (04:03→21:45)
[2019-04-18 04:58] LABS: BASOPHILS # (AUTO) 0.07 x10^3/uL (0-0.1); BASOPHILS % (AUTO) 1 % (0-1); EOSINOPHILS # (AUTO) 0.45 x10^3/uL (0-0.4); EOSINOPHILS % (AUTO) 7 % (1-7); LYMPHOCYTES # (AUTO) 0.91 x10^3/uL (1-3.4); LYMPHOCYTES % (AUTO) 15 % (22-44); MD NO; MEAN CORPUSCULAR HEMOGLOBIN 29.9 pg (27.5-34.5); MEAN CORPUSCULAR HGB CONC 32.6 g/dL (33.2-36.2); MEAN CORPUSCULAR VOLUME 91.9 fL (81-97); MEAN PLATELET VOLUME 6.8 fL (7.4-10.4); MONOCYTES # (AUTO) 0.58 x10^3/uL (0.2-0.8); MONOCYTES % (AUTO) 10 % (2-9); NEUTROPHILS # (AUTO) 4.04 x10^3/uL (1.8-6.8); NEUTROPHILS % (AUTO) 67 % (42-75); PLATELET COUNT 366 x10^3/uL (130-400); RED BLOOD COUNT 3.96 x10^6/uL (4.38-5.82); RED CELL DISTRIBUTION WIDTH 15.9 % (9.4-14.8)
[2019-04-18 05:08] LABS: ANION GAP 5 mmol/L (5-15); CALCIUM 8.4 mg/dL (8.5-10.1); CHLORIDE 112 mmol/L (98-107); CREATININE 1.08 mg/dL (0.7-1.3)
[2019-04-18 07:10] VITALS: BP 131/85
[2019-04-18] MEDS: GABAPENTIN 300 MG CAPSULE PO SCH ×3 (09:14→21:36)
[2019-04-18] MEDS: FUROSEMIDE 20 MG/2 ML IV SCH (09:15)
[2019-04-18] MEDS: NICOTINE 14MG/24 HR PATCH.TD24 TD SCH (09:15)
[2019-04-18 13:45] VITALS: BP 117/73
[2019-04-18 20:15] VITALS: BP 124/79
[2019-04-18] MEDS: VANCOMYCIN 1,400 MG in SODIUM CHLORIDE 0.9% 250 ML IV SCH (21:36)
[2019-04-19] MEDS: HEPARIN 5,000 UNITS/ML, 1ML SQ SCH ×3 (00:19→17:46)
[2019-04-19 00:43] VITALS: BP 105/69
[2019-04-19] MEDS: AMPICILLIN/SULBACTAM 3 GM in SODIUM CHLORIDE 0.9% 100 ML IV SCH (05:20)
[2019-04-19 05:40] LABS: BASOPHILS # (AUTO) 0.07 x10^3/uL (0-0.1); BASOPHILS % (AUTO) 1 % (0-1); EOSINOPHILS # (AUTO) 0.47 x10^3/uL (0-0.4); EOSINOPHILS % (AUTO) 9 % (1-7); LYMPHOCYTES # (AUTO) 0.85 x10^3/uL (1-3.4); LYMPHOCYTES % (AUTO) 16 % (22-44); MD NO; MEAN CORPUSCULAR HEMOGLOBIN 29.8 pg (27.5-34.5); MEAN CORPUSCULAR HGB CONC 32.6 g/dL (33.2-36.2); MEAN CORPUSCULAR VOLUME 91.1 fL (81-97); MEAN PLATELET VOLUME 6.5 fL (7.4-10.4); MONOCYTES # (AUTO) 0.64 x10^3/uL (0.2-0.8); MONOCYTES % (AUTO) 12 % (2-9); NEUTROPHILS # (AUTO) 3.35 x10^3/uL (1.8-6.8); NEUTROPHILS % (AUTO) 62 % (42-75); PLATELET COUNT 381 x10^3/uL (130-400); RED BLOOD COUNT 4.04 x10^6/uL (4.38-5.82); RED CELL DISTRIBUTION WIDTH 16.1 % (9.4-14.8)
[2019-04-19 05:47] LABS: ANION GAP 5 mmol/L (5-15); CALCIUM 8.5 mg/dL (8.5-10.1); CHLORIDE 113 mmol/L (98-107)
[2019-04-19 05:50] LABS: CREATININE 0.99 mg/dL (0.7-1.3)
[2019-04-19] MEDS: OXYcodone/APAP 5/325MG TABLET PO PRN ×3 (05:53→19:07)
[2019-04-19 07:16] VITALS: BP 109/71
[2019-04-19] MEDS: GABAPENTIN 300 MG CAPSULE PO SCH ×3 (08:28→20:44)
[2019-04-19] MEDS: FUROSEMIDE 40 MG TABLET PO SCH (08:28)
[2019-04-19] MEDS: NICOTINE 14MG/24 HR PATCH.TD24 TD SCH (08:29)
[2019-04-19] MEDS: PIPERACILLIN/TAZO/PMX 3.375GM 50 ML IV SCH ×3 (11:37→23:24)
[2019-04-19 12:51] VITALS: BP 122/77
[2019-04-19] MEDS: HYDROCORTISONE CRM 2.5%, 20GM TP PRN (15:22)
[2019-04-19 19:51] VITALS: BP 121/75
[2019-04-19] MEDS: VANCOMYCIN 1,400 MG in SODIUM CHLORIDE 0.9% 250 ML IV SCH (21:34)
[2019-04-20] MEDS: HEPARIN 5,000 UNITS/ML, 1ML SQ SCH ×3 (00:48→16:47)
[2019-04-20 03:55] VITALS: BP 104/68
[2019-04-20] MEDS: OXYcodone/APAP 5/325MG TABLET PO PRN ×3 (04:57→23:38)
[2019-04-20 04:58] LABS: BASOPHILS # (AUTO) 0.04 x10^3/uL (0-0.1); BASOPHILS % (AUTO) 1 % (0-1); EOSINOPHILS # (AUTO) 0.52 x10^3/uL (0-0.4); EOSINOPHILS % (AUTO) 9 % (1-7); LYMPHOCYTES # (AUTO) 0.96 x10^3/uL (1-3.4); LYMPHOCYTES % (AUTO) 17 % (22-44); MD NO; MEAN CORPUSCULAR HEMOGLOBIN 29.8 pg (27.5-34.5); MEAN CORPUSCULAR HGB CONC 32.8 g/dL (33.2-36.2); MEAN CORPUSCULAR VOLUME 90.8 fL (81-97); MEAN PLATELET VOLUME 6.5 fL (7.4-10.4); MONOCYTES # (AUTO) 0.69 x10^3/uL (0.2-0.8); MONOCYTES % (AUTO) 12 % (2-9); NEUTROPHILS # (AUTO) 3.56 x10^3/uL (1.8-6.8); NEUTROPHILS % (AUTO) 62 % (42-75); PLATELET COUNT 411 x10^3/uL (130-400); RED BLOOD COUNT 4.07 x10^6/uL (4.38-5.82)
[2019-04-20 05:09] LABS: ANION GAP 6 mmol/L (5-15); CALCIUM 8.7 mg/dL (8.5-10.1); CHLORIDE 111 mmol/L (98-107)
[2019-04-20 05:10] LABS: CREATININE 1.19 mg/dL (0.7-1.3)
[2019-04-20] MEDS: PIPERACILLIN/TAZO/PMX 3.375GM 50 ML IV SCH ×4 (05:20→22:59)
[2019-04-20 07:03] VITALS: BP 125/80
[2019-04-20] MEDS: NICOTINE 14MG/24 HR PATCH.TD24 TD SCH (08:46)
[2019-04-20] MEDS: FUROSEMIDE 40 MG TABLET PO SCH ×4 (08:46→09:13)
[2019-04-20] MEDS: GABAPENTIN 300 MG CAPSULE PO SCH ×3 (08:46→21:56)
[2019-04-20] MEDS: HYDROCORTISONE CRM 2.5%, 20GM TP PRN (09:13)
[2019-04-20 14:55] VITALS: BP 121/79
[2019-04-20 18:51] VITALS: BP 137/80
[2019-04-21] MEDS: HYDROCORTISONE CRM 2.5%, 20GM TP PRN (00:14)
[2019-04-21 01:15] VITALS: BP 108/70
[2019-04-21] MEDS: OXYcodone/APAP 5/325MG TABLET PO PRN ×4 (03:53→23:05)
[2019-04-21] MEDS: HEPARIN 5,000 UNITS/ML, 1ML SQ SCH ×3 (05:36→21:00)
[2019-04-21] MEDS: PIPERACILLIN/TAZO/PMX 3.375GM 50 ML IV SCH ×4 (05:36→23:01)
[2019-04-21 06:09] VITALS: BP 127/74
[2019-04-21] MEDS: FUROSEMIDE 40 MG TABLET PO SCH (08:45)
[2019-04-21] MEDS: GABAPENTIN 300 MG CAPSULE PO SCH ×3 (08:46→21:00)
[2019-04-21] MEDS: NICOTINE 14MG/24 HR PATCH.TD24 TD SCH (08:46)
[2019-04-21 13:30] VITALS: BP 101/5
[2019-04-21 18:55] VITALS: BP 107/70
[2019-04-21] MEDS: SULFAMETH./TRIMETHOPRIM DS 800MG/160MG TABLET PO SCH (21:00)
[2019-04-22 02:25] VITALS: BP 105/68
[2019-04-22] MEDS: OXYcodone/APAP 5/325MG TABLET PO PRN ×4 (03:11→20:22)
[2019-04-22] MEDS: PIPERACILLIN/TAZO/PMX 3.375GM 50 ML IV SCH ×4 (06:07→22:50)
[2019-04-22] MEDS: HEPARIN 5,000 UNITS/ML, 1ML SQ SCH ×3 (06:07→20:22)
[2019-04-22 07:25] VITALS: BP 112/76
[2019-04-22] MEDS: SULFAMETH./TRIMETHOPRIM DS 800MG/160MG TABLET PO SCH ×2 (08:42→20:21)
[2019-04-22] MEDS: FUROSEMIDE 40 MG TABLET PO SCH (08:43)
[2019-04-22] MEDS: GABAPENTIN 300 MG CAPSULE PO SCH ×3 (08:43→20:22)
[2019-04-22] MEDS: NICOTINE 14MG/24 HR PATCH.TD24 TD SCH (08:44)
[2019-04-22 14:00] VITALS: BP 118/75
[2019-04-22] MEDS: HYDROCORTISONE CRM 2.5%, 20GM TP PRN (17:23)
[2019-04-22 19:00] VITALS: BP 98/64
[2019-04-23] MEDS: OXYcodone/APAP 5/325MG TABLET PO PRN ×5 (00:48→20:37)
[2019-04-23 01:06] VITALS: BP 110/73
[2019-04-23] MEDS: HEPARIN 5,000 UNITS/ML, 1ML SQ SCH ×3 (05:26→20:37)
[2019-04-23] MEDS: PIPERACILLIN/TAZO/PMX 3.375GM 50 ML IV SCH ×3 (05:26→19:40)
[2019-04-23 07:34] VITALS: BP 111/71
[2019-04-23] MEDS: NICOTINE 14MG/24 HR PATCH.TD24 TD SCH (07:57)
[2019-04-23] MEDS: FUROSEMIDE 40 MG TABLET PO SCH (07:58)
[2019-04-23] MEDS: GABAPENTIN 300 MG CAPSULE PO SCH (07:58)
[2019-04-23] MEDS: SULFAMETH./TRIMETHOPRIM DS 800MG/160MG TABLET PO SCH ×2 (07:58→20:37)
[2019-04-23] MEDS ORDERED: GABAPENTIN 300 MG CAPSULE PO PRN (08:30)
[2019-04-23] MEDS ORDERED: OMNIPAQUE 350 MG/ML, 150 ML BOTTLE ONE (10:47)
[2019-04-23] MEDS: DIPHENHYDRAMINE 25 MG CAPSULE PO PRN (10:54)
[2019-04-23 15:00] VITALS: BP 117/76
[2019-04-23] MEDS ORDERED: D5%-0.45% NACL 1,000 ML IV SCH (17:00)
[2019-04-23] MEDS ORDERED: MORPHINE SULFATE 4 MG/ML, 1ML IVPush PRN (18:00)
[2019-04-23 21:12] VITALS: BP 113/76
[2019-04-24] MEDS: OXYcodone/APAP 5/325MG TABLET PO PRN ×5 (00:24→21:55)
[2019-04-24] MEDS: GABAPENTIN 300 MG CAPSULE PO PRN ×3 (00:25→18:00)
[2019-04-24 00:36] VITALS: BP 111/74
[2019-04-24] MEDS: PIPERACILLIN/TAZO/PMX 3.375GM 50 ML IV SCH ×4 (01:53→20:16)
[2019-04-24] MEDS: HEPARIN 5,000 UNITS/ML, 1ML SQ SCH ×3 (04:51→20:16)
[2019-04-24 06:16] LABS: BASOPHILS # (AUTO) 0.09 x10^3/uL (0-0.1); BASOPHILS % (AUTO) 2 % (0-1); EOSINOPHILS # (AUTO) 0.59 x10^3/uL (0-0.4); EOSINOPHILS % (AUTO) 10 % (1-7); LYMPHOCYTES # (AUTO) 1.08 x10^3/uL (1-3.4); LYMPHOCYTES % (AUTO) 18 % (22-44); MD NO; MEAN CORPUSCULAR HEMOGLOBIN 29.7 pg (27.5-34.5); MEAN CORPUSCULAR HGB CONC 32.6 g/dL (33.2-36.2); MEAN CORPUSCULAR VOLUME 91.1 fL (81-97); MEAN PLATELET VOLUME 6.9 fL (7.4-10.4); MONOCYTES # (AUTO) 0.71 x10^3/uL (0.2-0.8); MONOCYTES % (AUTO) 12 % (2-9); NEUTROPHILS % (AUTO) 59 % (42-75); PLATELET COUNT 368 x10^3/uL (130-400); RED BLOOD COUNT 4.05 x10^6/uL (4.38-5.82); RED CELL DISTRIBUTION WIDTH 16.1 % (9.4-14.8)
[2019-04-24 06:28] LABS: ALBUMIN 2.8 g/dL (3.4-5.0); ANION GAP 6 mmol/L (5-15); CALCIUM 8.9 mg/dL (8.5-10.1); CHLORIDE 107 mmol/L (98-107)
[2019-04-24 06:31] LABS: ALANINE AMINOTRANSFERASE 31 U/L (12-78); ALKALINE PHOSPHATASE 68 U/L (45-117); BILIRUBIN,TOTAL 0.6 mg/dL (0.2-1.0); CREATININE 1.38 mg/dL (0.7-1.3); TOTAL PROTEIN 7.2 g/dL (6.4-8.2)
[2019-04-24] MEDS: NICOTINE 14MG/24 HR PATCH.TD24 TD SCH (07:47)
[2019-04-24] MEDS: SULFAMETH./TRIMETHOPRIM DS 800MG/160MG TABLET PO SCH ×2 (09:00→20:15)
[2019-04-24] MEDS: FUROSEMIDE 40 MG TABLET PO SCH (09:00)
[2019-04-24 09:27] VITALS: BP 106/67
[2019-04-24 15:32] VITALS: BP 107/67
[2019-04-24 19:20] VITALS: BP 109/71
[2019-04-25] MEDS: PIPERACILLIN/TAZO/PMX 3.375GM 50 ML IV SCH ×4 (02:10→20:21)
[2019-04-25] MEDS: OXYcodone/APAP 5/325MG TABLET PO PRN ×5 (02:10→20:28)
[2019-04-25] MEDS: GABAPENTIN 300 MG CAPSULE PO PRN ×3 (02:10→20:28)
[2019-04-25 02:12] VITALS: BP 106/72
[2019-04-25] MEDS: HEPARIN 5,000 UNITS/ML, 1ML SQ SCH ×2 (05:39→12:26)
[2019-04-25 07:27] VITALS: BP 110/72
[2019-04-25] MEDS: SULFAMETH./TRIMETHOPRIM DS 800MG/160MG TABLET PO SCH ×2 (08:38→20:28)
[2019-04-25] MEDS: FUROSEMIDE 40 MG TABLET PO SCH (08:38)
[2019-04-25] MEDS: NICOTINE 14MG/24 HR PATCH.TD24 TD SCH (08:39)
[2019-04-25] MEDS: HYDROCORTISONE CRM 2.5%, 20GM TP PRN (12:25)
[2019-04-25] MEDS: DIPHENHYDRAMINE 25 MG CAPSULE PO PRN (12:25)
[2019-04-25 13:45] VITALS: BP 113/75
[2019-04-25] MEDS ORDERED: HOLD MEDICATION MC PRN (18:00)
[2019-04-25] MEDS ORDERED: [UNRECOGNIZED DRUG - REMARK] MC PRN (19:30)
[2019-04-25] MEDS ORDERED: HEPARIN 5,000 UNITS/ML, 1ML SQ SCH (20:00)
[2019-04-25 20:26] VITALS: BP 106/66
[2019-04-25] MEDS ORDERED: HEPARIN 5,000 UNITS/ML, 1ML SQ ONE (21:00)
[2019-04-25] MEDS ORDERED: D5%-LACTATED RINGERS 1,000 ML IV SCH (23:55)
[2019-04-26 00:31] VITALS: BP 108/66
[2019-04-26] MEDS: OXYcodone/APAP 5/325MG TABLET PO PRN ×4 (01:10→18:04)
[2019-04-26] MEDS: PIPERACILLIN/TAZO/PMX 3.375GM 50 ML IV SCH ×4 (01:55→20:30)
[2019-04-26] MEDS: GABAPENTIN 300 MG CAPSULE PO PRN ×2 (04:39→13:18)
[2019-04-26 05:04] LABS: BASOPHILS % (AUTO) 2 % (0-1); EOSINOPHILS # (AUTO) 0.69 x10^3/uL (0-0.4); EOSINOPHILS % (AUTO) 11 % (1-7); LYMPHOCYTES # (AUTO) 1.22 x10^3/uL (1-3.4); LYMPHOCYTES % (AUTO) 20 % (22-44); MD NO; MEAN CORPUSCULAR HGB CONC 32.4 g/dL (33.2-36.2); MEAN CORPUSCULAR VOLUME 92.8 fL (81-97); MEAN PLATELET VOLUME 6.7 fL (7.4-10.4); MONOCYTES # (AUTO) 0.66 x10^3/uL (0.2-0.8); MONOCYTES % (AUTO) 11 % (2-9); NEUTROPHILS # (AUTO) 3.57 x10^3/uL (1.8-6.8); NEUTROPHILS % (AUTO) 57 % (42-75); PLATELET COUNT 408 x10^3/uL (130-400); RED BLOOD COUNT 4.07 x10^6/uL (4.38-5.82); RED CELL DISTRIBUTION WIDTH 16.8 % (9.4-14.8)
[2019-04-26 05:14] LABS: CHLORIDE 108 mmol/L (98-107)
[2019-04-26 05:18] LABS: ANION GAP 6 mmol/L (5-15); CALCIUM 8.9 mg/dL (8.5-10.1); CREATININE 1.52 mg/dL (0.7-1.3)
[2019-04-26] MEDS ORDERED: PHARMACY MAY ADJ FOR RENAL FX MC PRN (06:30)
[2019-04-26] MEDS: LINEZOLID PMX 600MG/300ML 300 ML IV SCH ×2 (06:47→18:05)
[2019-04-26 07:56] VITALS: BP 119/72
[2019-04-26] MEDS: NICOTINE 14MG/24 HR PATCH.TD24 TD SCH (08:01)
[2019-04-26] MEDS ORDERED: LIDOCAINE 1%, 10ML ONE (09:47)
[2019-04-26] MEDS ORDERED: PROTAMINE SULFATE 10 MG/ML, 25ML ONE (10:13)
[2019-04-26] MEDS ORDERED: MIDAZOLAM 1 MG/ML, 5ML ONE (10:13)
[2019-04-26] MEDS ORDERED: HEPARIN 1,000 UNITS/ML, 10ML ONE (10:13)
[2019-04-26] MEDS ORDERED: NALOXONE 1 MG/ML, 2ML ONE (10:13)
[2019-04-26] MEDS ORDERED: FLUMAZENIL 0.1 MG/1 ML, 5ML ONE (10:14)
[2019-04-26] MEDS ORDERED: FENTANYL PF 100 MCG/2ML ONE (10:14)
[2019-04-26] MEDS: SODIUM CHLORIDE FLUSH 10ML SYR IVF SCH ×2 (12:00→20:56)
[2019-04-26 12:15] VITALS: BP 113/67
[2019-04-26 13:56] LABS: CREATININE,URINE RANDOM 44.4 mg/dL
[2019-04-26] MEDS: LACTATED RINGERS 1,000 ML IV SCH (16:02)
[2019-04-26 18:36] VITALS: BP 101/58
[2019-04-27] MEDS: OXYcodone/APAP 5/325MG TABLET PO PRN ×5 (00:33→16:40)
[2019-04-27] MEDS: LACTATED RINGERS 1,000 ML IV SCH ×2 (00:34→12:00)
[2019-04-27 00:50] VITALS: BP 130/84
[2019-04-27] MEDS: PIPERACILLIN/TAZO/PMX 3.375GM 50 ML IV SCH ×3 (02:03→14:37)
[2019-04-27] MEDS: DIPHENHYDRAMINE 25 MG CAPSULE PO PRN ×2 (02:57→12:49)
[2019-04-27] MEDS: GABAPENTIN 300 MG CAPSULE PO PRN ×2 (03:48→12:47)
[2019-04-27 05:07] LABS: BASOPHILS # (AUTO) 0.13 x10^3/uL (0-0.1); BASOPHILS % (AUTO) 1 % (0-1); EOSINOPHILS % (AUTO) 6 % (1-7); LYMPHOCYTES # (AUTO) 1.09 x10^3/uL (1-3.4); LYMPHOCYTES % (AUTO) 12 % (22-44); MD NO; MEAN CORPUSCULAR HEMOGLOBIN 29.6 pg (27.5-34.5); MEAN CORPUSCULAR HGB CONC 32.3 g/dL (33.2-36.2); MEAN CORPUSCULAR VOLUME 91.8 fL (81-97); MEAN PLATELET VOLUME 6.6 fL (7.4-10.4); MONOCYTES # (AUTO) 0.87 x10^3/uL (0.2-0.8); MONOCYTES % (AUTO) 9 % (2-9); NEUTROPHILS % (AUTO) 71 % (42-75); PLATELET COUNT 428 x10^3/uL (130-400); RED BLOOD COUNT 4.29 x10^6/uL (4.38-5.82); RED CELL DISTRIBUTION WIDTH 16.7 % (9.4-14.8)
[2019-04-27 05:12] LABS: ALBUMIN 3.2 g/dL (3.4-5.0); ANION GAP 7 mmol/L (5-15); CALCIUM 9.2 mg/dL (8.5-10.1); CHLORIDE 109 mmol/L (98-107)
[2019-04-27 05:14] LABS: CREATININE 1.37 mg/dL (0.7-1.3)
[2019-04-27] MEDS: LINEZOLID PMX 600MG/300ML 300 ML IV SCH (06:33)
[2019-04-27 06:44] VITALS: BP 102/65
[2019-04-27] MEDS: NICOTINE 14MG/24 HR PATCH.TD24 TD SCH (08:08)
[2019-04-27] MEDS ORDERED: CLOPIDOGREL 75 MG TABLET PO SCH (12:30)
[2019-04-27] MEDS ORDERED: ASPIRIN 81 MG TABLET EC PO SCH (12:30)
[2019-04-27] MEDS ORDERED: FURO40TA6 PO ×3 (12:38→12:42)
[2019-04-27] MEDS ORDERED: ASPI81TA45 PO (12:39)
[2019-04-27] MEDS ORDERED: ATOR20TA37 PO (12:39)
[2019-04-27] MEDS ORDERED: CLOP75TA PO (12:39)
[2019-04-27] MEDS ORDERED: LINE600T12 PO (12:40)
[2019-04-27] MEDS ORDERED: POTASSIUM PO (12:42)
[2019-04-27 12:45] VITALS: BP 115/72
[2019-04-27] MEDS ORDERED: PIPE3.375 IVBOLUS (16:49)
[2019-04-27 17:06] VITALS: BP 118/68
[2019-04-28] MEDS ORDERED: ASPIRIN 325 MG TABLET PO SCH (09:00)
== END 2019-04-27 17:05 | DRG 853 ==
LOC: ED 18:57 → EDIP 19:36 → 3N 20:38 → 4NE 04-23 10:39
PROVIDERS: ADMIT Family Medicine; ATTEND Hospitalist
PROC: 047D3EZ Dilation of Left Common Iliac Artery with Two Intraluminal Devices, Percutaneous Approach (ICD-10-PCS; principal; 2019-04-26)
PROC: 047C3DZ Dilation of Right Common Iliac Artery with Intraluminal Device, Percutaneous Approach (ICD-10-PCS; 2019-04-26)
PROC: 047J3DZ Dilation of Left External Iliac Artery with Intraluminal Device, Percutaneous Approach (ICD-10-PCS; 2019-04-26)
PROC: 047F3DZ Dilation of Left Internal Iliac Artery with Intraluminal Device, Percutaneous Approach (ICD-10-PCS; 2019-04-26)
DX: A41.9 Sepsis, unspecified organism (principal); R53.2 Functional quadriplegia; N17.0 Acute kidney failure with tubular necrosis; J18.9 Pneumonia, unspecified organism; E43 Unspecified severe protein-calorie malnutrition; L03.116 Cellulitis of left lower limb; J44.0 Chronic obstructive pulmonary disease with (acute) lower respiratory infection; L97.829 Non-pressure chronic ulcer of other part of left lower leg with unspecified severity; I70.248 Atherosclerosis of native arteries of left leg with ulceration of other part of lower leg; Z66 Do not resuscitate; B95.2 Enterococcus as the cause of diseases classified elsewhere; F17.200 Nicotine dependence, unspecified, uncomplicated; I10 Essential (primary) hypertension; Z59.0 Homelessness; Z79.02 Long term (current) use of antithrombotics/antiplatelets; Z79.82 Long term (current) use of aspirin; Z95.5 Presence of coronary angioplasty implant and graft; Z95.820 Peripheral vascular angioplasty status with implants and grafts; Z68.21 Body mass index [BMI] 21.0-21.9, adult; I70.201 Unspecified atherosclerosis of native arteries of extremities, right leg
CPT/HCPCS: 36415; 37221; 37223; 71045; 71275; 75630; 75635; 80048; 80053; 80061; 80202; 81003; 82040; 82570; 83036; 83605; 83735; 83880; 84100; 84145; 84300; 85025; 85651; 86140; 87040; 87070; 87077; 87186; 87205; 93306; 96365; 96366; 99156; 99157; C1725; G0378; J0295; J0696; J1644; J2020; J2250; J2543; J2720; J3010; J3370; Q9967; A9575; C1760; C1769; C1876; C1894; J1940; J2270; J2310; J7050; J7120; J7121; Q0163